=== PATIENT | female | born 1945 | race Caucasian/White ===

== ENCOUNTER 2020-04-06 14:59 | Outpatient (REF) | payer MEDICARE, SELFPAY | END 2020-04-06 15:00 | disposition home or self-care (01) | LOC: HO.LAB 14:59 | PROVIDERS: PCP Internal Medicine; Visit Provider Internal Medicine | DX: Z20.828 Contact with and (suspected) exposure to other viral communicable diseases (principal) | CPT/HCPCS: 87635 ==

== ENCOUNTER 2020-07-23 12:59 | Outpatient (REF) | payer MEDICARE, MEDICAID, SELFPAY ==
--- NOTE | ~2020-07-23 | MM_ITS ---
EXAMINATION: MM SCREENING DIGITAL BREAST TOMOSYNTHESIS, BILATERAL CLINICAL INFORMATION: Screening. Asymptomatic. The lifetime risk of breast cancer based on the Tyrer-Cuzick Model is 2%. COMPARISON: Mammography: 01/16/2018, 01/04/2018, 11/13/2016 TECHNIQUE: Digital breast tomosynthesis is performed in both the craniocaudal and mediolateral oblique views along with computer-aided detection (CAD). Synthesized 2D images are generated from the tomosynthesis. FINDINGS: There are scattered areas of fibroglandular density (ACR BI-RADS breast composition Category b). There are no significant masses, abnormal calcifications, or other abnormalities. Parenchymal pattern is similar to prior exams. No significant changes. MM/MM tomosynthesis screening BI IMPRESSION: No mammographic evidence of malignancy. ASSESSMENT: BI-RADS 1: Negative RECOMMENDATION: Routine annual mammography screening. This patient's information was entered into a reminder system with a target due date for their next mammogram.
== END 2020-07-23 13:00 | disposition home or self-care (01) ==
LOC: HO.MAMMO 12:59
PROVIDERS: Visit Provider Internal Medicine
DX: Z12.31 Encounter for screening mammogram for malignant neoplasm of breast (principal)
CPT/HCPCS: 77063; 77067

== ENCOUNTER 2020-08-06 09:28 | Outpatient (REF) | payer MEDICARE, MEDICAID, SELFPAY ==
[2020-08-06 10:53] LABS: Alanine Aminotransferase 26 U/L (0-31); Albumin Level 4.5 g/dL (3.5-5.0); Alkaline Phosphatase 67 U/L (39-117); Anion Gap 14 (12-20); Aspartate Amino Transferase 21 U/L (5-31); Bilirubin Total 0.6 mg/dL (0.0-1.0); Blood Urea Nitrogen 15 mg/dL (9-16); Carbon Dioxide 29 mmol/L (22-29); Chloride 102 mmol/L (96-108); Cholesterol 126 mg/dL; Estimated Glomerular Filt Rate > 60; Glucose Fasting 130 mg/dL (60-99); HDL Cholesterol 40 mg/dL; LDL Cholesterol Calculated 61 mg/dl; Potassium 4.2 mmol/L (3.3-5.1); Sodium 141 mmol/L (135-145); Total Protein 7.2 g/dL (6.5-8.0); Triglycerides 127 mg/dL
[2020-08-06 11:04] LABS: Creatinine Urine 132.15 mg/dL; Microalbum/Creatinine Ratio Ur 19.6 ug/mg cr
[2020-08-12 14:27] LABS: Vitamin D 25-OH, D2 <4 ng/mL; Vitamin D 25-OH, D3 41 ng/mL; Vitamin D 25-OH, Total 41 ng/mL (30-100)
== END 2020-08-06 09:29 | disposition home or self-care (01) ==
LOC: HO.LAB 09:28
PROVIDERS: PCP Internal Medicine; Visit Provider Internal Medicine
DX: E11.9 Type 2 diabetes mellitus without complications (principal); E78.00 Pure hypercholesterolemia, unspecified; E78.5 Hyperlipidemia, unspecified; E55.9 Vitamin D deficiency, unspecified
CPT/HCPCS: 36415; 80053; 80061; 82043; 82306

== ENCOUNTER → 2020-08-27 10:57 | Outpatient (BNVA) | payer MEDICARE, MEDICAID, SELFPAY | PROVIDERS: PCP Internal Medicine; Visit Provider Nurse Practitioner Gerontology | DX: E11.9 Type 2 diabetes mellitus without complications (principal); E78.00 Pure hypercholesterolemia, unspecified; E55.9 Vitamin D deficiency, unspecified; I10 Essential (primary) hypertension | CPT/HCPCS: 82947; 99212 ==

== ENCOUNTER → 2020-09-13 09:40 | Outpatient (BNVA) | payer MEDICARE, MEDICAID, SELFPAY | PROVIDERS: PCP Internal Medicine; Visit Provider Internal Medicine | DX: I49.8 Other specified cardiac arrhythmias (principal); I44.4 Left anterior fascicular block; I10 Essential (primary) hypertension; E11.9 Type 2 diabetes mellitus without complications; R94.31 Abnormal electrocardiogram [ECG] [EKG]; Z82.49 Family history of ischemic heart disease and other diseases of the circulatory system | CPT/HCPCS: 93005; 99212 ==

== ENCOUNTER → 2020-09-21 09:05 | Outpatient (REF) | payer MEDICARE, MEDICAID, SELFPAY ==
--- NOTE | ~2020-09-21 | NM_ITS ---
Lexiscan Myocardial perfusion study Indication: Atrial arrhythmias, left anterior fascicular block, assess for coronary disease and ischemia Technique: The patient was brought in for a Lexiscan perfusion study on 09/21/2020 and was injected 0.4 mg of Lexiscan intravenously. Within a minute of this injection 25 mCi of sestamibi was given intravenously. Images were obtained using the SPECT gamma camera interlaced with the gating device. Images were obtained in supine position. Resting perfusion study was performed on 09/22/2020. Patient was administered 31 mCi of sestamibi intravenously at rest. Images were then obtained in supine position. Total DLP 70mGy-cm. Images were processed with the software and compared side to side in short axis, horizontal long axis and vertical long axis views. Findings: Raw acquisition was reviewed. The stress perfusion study showed no significant perfusion abnormality. Both uncorrected as well as CT attenuation corrected images were reviewed. The gated study shows normal LV systolic function with calculated LVEF of 72%. LV cavity is normal in size. The gated study shows normal wall thickening and contraction of segments. Resting study shows no significant perfusion abnormality. Gating at rest reveals normal wall motion with ejection fraction at 72%. The findings are consistent with no reversible or fixed perfusion abnormality. NM/NM krishan perf SPECT rest & str Impression: 1. Myocardial perfusion imaging study shows normal myocardial perfusion. No evidence of any ischemia or infarction. 2. Gated LVEF is 72% during stress and rest. 3. Transient ischemic dilatation not present. EKG component of the test reported separately.
--- NOTE | 2020-09-21 09:09 | CA_ITS ---
Acquisition Time: 2020-09-21 09:45:58 Total Exercise Time: 00:02:00 Test Indications: ABN EKG Medications: SEE CHART Protocol: LEXISCAN Max HR: 117 BPM 80% of Pred: 145 BPM Max BP: 138/078 mmHG Max Work Load: 1.0 METS Pharmacological stress test using Lexiscan while sitting. Denies any anginal sx. Sx of H/A reversed with Aminophyline 75 mg IV. EKG without any arrhythmias, same as at baseline. Non-diagnostic for ischemia. Nuclear images to follow. Normotensive response to test. Test reviewed with Dr. Payan Referred By: Burt Payan Overread By: Karis Olson NP
== END ==
LOC: HO.CARD 09:05
PROVIDERS: Visit Provider Internal Medicine
DX: I49.8 Other specified cardiac arrhythmias (principal); R94.31 Abnormal electrocardiogram [ECG] [EKG]; Z82.49 Family history of ischemic heart disease and other diseases of the circulatory system
CPT/HCPCS: 78452; 93017; A9500; J0280; J2785

== ENCOUNTER → 2020-10-20 09:26 | Outpatient (REF) | payer MEDICARE, MEDICAID, SELFPAY ==
--- NOTE | 2020-10-20 09:29 | CA_ITS ---
Transthoracic Echocardiogram Patient (Last, First, Middle): Caroline Becerril M Gender: Female Date of : 1945 Age: 75 Procedure Date: 10/20/2020 Procedure Type: Transthoracic Echocardiogram Location: OP Height: 157.48 cm Weight: 80.29 kg BSA: 1.81 m2 Heart Rate: bpm BP: 124 / 80 mmHg Slip Injector And Applicator: Referring MD: Burt Payan MD Laborer Prestressed Concrete: Lopez Castro MD Symptoms: I49.8 - Other specified cardiac arrhythmias Study Quality: Fair ECG Rhythm: Sinus Conclusions: - 1. Normal LV systolic function with upper limits normal wall thickness with grade 1 diastolic dysfunction 2. Mild aortic regurgitation 3. Normal RV systolic pressure 4. No pericardial effusion Findings Left Ventricle Normal left ventricular size, thickness, and systolic function. The visually estimated ejection fraction is between 60-65%. Regional wall motion abnormalities can not be excluded due to suboptimal endocardial definition. Spectral Doppler is indicative of an impaired relaxation filling pattern. E/E prime ratio is <8, consistent with normal filling pressures. Evidence suggests grade I (mild) diastolic dysfunction. Right Ventricle Normal right ventricular cavity size and systolic function. Atria The left atrium is normal in size. Interatrial shunt cannot be excluded. The right atrium is normal in size. Aortic Valve The aortic valve was not well visualized. There is mild calcification of the aortic valve. There is no aortic valve stenosis. There is mild aortic valve regurgitation. Mitral Valve The mitral valve was not well visualized. There is trace mitral valve regurgitation. There is no mitral valve stenosis. Pulmonic Valve The pulmonic valve was not well visualized. Tricuspid Valve Likely normal tricuspid valve structure and function. There is trace tricuspid valve regurgitation. The right ventricular systolic pressure is normal. The right ventricular systolic pressure is 15 mmHg. There is no evidence of pulmonary hypertension. Great Vessels All visible segments of the aorta are normal in size. The pulmonary artery was not well visualized. Venous The inferior vena cava is normal in size and collapses greater than 50% with inspiration. Pericardium/Pleural There is no evidence of pericardial effusion. Prior Study Comparison Changes noted compared to prior study dated: 04/11/2017. There is no significant LVH on this study Measurements 2D Linear Measurements IVSd: 1.01 0.6-0.9/0.6-1.0 cm LVIDd: 4.59 3.9-5.3/4.2-5.9 cm LVIDd Index: 2.54 2.4-3.2/2.2-3.1 cm/m2 LVIDs: 2.85 2.0-3.6 cm LVPWd: 1.10 0.7-1.1 cm Ao Root: 3.00 2.1-3.5 cm LA Diam: 3.40 2.7-3.8/3.0-4.0 cm LAIDs Index: 1.88 1.5-2.3 cm/m2 LV Mass: 212.22 67-162/88-224 g LV Mass Index: 117.25 43-95/49-115 g/m2 LVOT Diam: 2.10 3.0+(-)1.3 cm Mitral Valve MV Pk E: 0.58 MV PK A: 0.78 MV Decel Time: 176.00 E/A: 0.70 E'Lateral: 6.19 E'Medial: 5.13 E/E' Med: 11.30 E/E' Lat: 9.40 PHT: 52.00 MVA PHT: 4.23 Decel Callahan: 3.31 Aortic Valve AoV Pk Eddie: 1.66 AoV Mn Eddie: 1.09 AoV VTI: 0.37 AoV Pk Grad: 11.00 Aov Mn Grad: 6.00 TRICE Cont.VTI: 1.88 LVOT LVOT Pk Eddie: 0.85 LVOT Mn Eddie: 0.58 LVOT VTI: 0.20 LVOT Pk Grad: 3.00 LVOT Mn Grad: 2.00 LVOT Diam: 2.10 LVOT Area: 3.46 Diastolic Function MV Pk E: 0.58 MV Pk A: 0.78 E/A: 0.70 E'Medial: 5.13 E/E' Med: 11.30 E' Laterial: 6.19 E/E' Lat: 9.40 Tricuspid Valve TR Pk Eddie: 1.75 TR Pk Grad: 12.00 RA Press: 3.00 RVSP: 15.00 Great Vessels Aorta Ao Root-2D: 3.00 2.0-3.7 cm Ao Asc: 3.20 2.1-3.4 cm Pulmonary Valve PV Pk Eddie: 1.47 Peak PV Grad: 9.00 Updated in Other Vendor System with Status of Final Lopez Castro MD electronically signed on 10/20/2020 12:38:17 PM with status of Final
== END ==
LOC: HO.CARD 09:26
PROVIDERS: Visit Provider Internal Medicine
DX: I44.4 Left anterior fascicular block (principal); I49.8 Other specified cardiac arrhythmias
CPT/HCPCS: 93306

== ENCOUNTER → 2020-10-25 12:29 | Outpatient (BNVA) | payer MEDICARE, MEDICAID, SELFPAY | PROVIDERS: PCP Internal Medicine; Referring Provider Internal Medicine; Visit Provider Internal Medicine | DX: I49.8 Other specified cardiac arrhythmias (principal); I44.4 Left anterior fascicular block; I10 Essential (primary) hypertension; E11.9 Type 2 diabetes mellitus without complications; R94.31 Abnormal electrocardiogram [ECG] [EKG]; Z82.49 Family history of ischemic heart disease and other diseases of the circulatory system | CPT/HCPCS: 99212 ==

== ENCOUNTER → 2020-12-03 10:55 | Outpatient (BNVA) | payer MEDICARE, MEDICAID, SELFPAY | PROVIDERS: PCP Internal Medicine; Visit Provider Nurse Practitioner Gerontology | DX: E11.9 Type 2 diabetes mellitus without complications (principal); E78.00 Pure hypercholesterolemia, unspecified; E55.9 Vitamin D deficiency, unspecified; I10 Essential (primary) hypertension | CPT/HCPCS: 82947; 99212 ==

== ENCOUNTER → 2021-06-30 10:13 | Outpatient (BNVA) | payer MEDICARE, MEDICAID, SELFPAY | PROVIDERS: PCP Internal Medicine; Visit Provider Nurse Practitioner Gerontology | DX: E11.9 Type 2 diabetes mellitus without complications (principal); E78.00 Pure hypercholesterolemia, unspecified; E55.9 Vitamin D deficiency, unspecified; I10 Essential (primary) hypertension; Z79.4 Long term (current) use of insulin | CPT/HCPCS: Q3014 ==

== ENCOUNTER 2021-07-22 08:01 | Outpatient (REF) | payer MEDICARE, MEDICAID, SELFPAY ==
[2021-07-22 09:41] LABS: Alanine Aminotransferase 17 U/L (0-31); Albumin Level 4.5 g/dL (3.5-5.0); Alkaline Phosphatase 62 U/L (39-117); Anion Gap 15 (12-20); Aspartate Amino Transferase 19 U/L (5-31); Bilirubin Total 0.4 mg/dL (0.0-1.0); Blood Urea Nitrogen 22 mg/dL (9-16); Carbon Dioxide 32 mmol/L (22-29); Chloride 100 mmol/L (96-108); Cholesterol 129 mg/dL; Estimated Glomerular Filt Rate > 60; Glucose Fasting 125 mg/dL (60-99); HDL Cholesterol 39 mg/dL; LDL Cholesterol Calculated 67 mg/dl; Potassium 5.3 mmol/L (3.3-5.1); Sodium 142 mmol/L (135-145); Total Protein 7.4 g/dL (6.5-8.0); Triglycerides 119 mg/dL
[2021-07-22 10:28] LABS: Creatinine Urine 109.83 mg/dL
[2021-07-27 13:56] LABS: Vitamin D 25-OH, D2 <4 ng/mL; Vitamin D 25-OH, D3 54 ng/mL; Vitamin D 25-OH, Total 54 ng/mL (30-100)
== END 2021-07-22 08:02 | disposition home or self-care (01) ==
LOC: HO.LAB 08:01
PROVIDERS: Absent Provider Internal Medicine; PCP Internal Medicine; Visit Provider Nurse Practitioner Gerontology
DX: E11.9 Type 2 diabetes mellitus without complications (principal); E55.9 Vitamin D deficiency, unspecified
CPT/HCPCS: 36415; 80053; 80061; 82043; 82306

== ENCOUNTER 2021-07-29 09:41 | Outpatient (REF) | payer MEDICARE, MEDICAID, SELFPAY ==
[2021-07-29 11:11] LABS: Anion Gap 13 (12-20); Blood Urea Nitrogen 18 mg/dL (9-16); Calcium 9.9 mg/dL (8.4-10.2); Carbon Dioxide 32 mmol/L (22-29); Chloride 100 mmol/L (96-108); Estimated Glomerular Filt Rate > 60; Glucose Random 96 mg/dL (60-115); Potassium 4.2 mmol/L (3.3-5.1); Sodium 141 mmol/L (135-145)
== END 2021-07-29 09:42 | disposition home or self-care (01) ==
LOC: HO.LAB 09:41
PROVIDERS: PCP Internal Medicine; Visit Provider Nurse Practitioner Gerontology
DX: E11.9 Type 2 diabetes mellitus without complications (principal)
CPT/HCPCS: 36415; 80048

== ENCOUNTER 2021-08-04 08:42 | Outpatient (REF) | payer MEDICARE, MEDICAID, SELFPAY ==
--- NOTE | ~2021-08-04 | MM_ITS ---
EXAMINATION: MM SCREENING DIGITAL BREAST TOMOSYNTHESIS, BILATERAL CLINICAL INFORMATION: Screening. Asymptomatic. The lifetime risk of breast cancer based on the Tyrer-Cuzick Model is 1.6%. COMPARISON: Mammography: July 23, 2020 and studies dating back to November 13, 2016 TECHNIQUE: Digital breast tomosynthesis is performed in both the craniocaudal and mediolateral oblique views along with computer-aided detection (CAD). Synthesized 2D images are generated from the tomosynthesis. FINDINGS: There are scattered areas of fibroglandular density (ACR BI-RADS breast composition Category b). There are no significant masses, abnormal calcifications, or other abnormalities. MM/MM tomosynthesis screening BI IMPRESSION: There are no significant changes from prior study. ASSESSMENT: BI-RADS 1: Negative RECOMMENDATION: Routine annual mammography screening. This patient's information was entered into a reminder system with a target due date for their next mammogram.
== END 2021-08-04 08:43 | disposition home or self-care (01) ==
LOC: HO.MAMMO 08:42
PROVIDERS: PCP Internal Medicine; Visit Provider Internal Medicine
DX: Z12.31 Encounter for screening mammogram for malignant neoplasm of breast (principal)
CPT/HCPCS: 77063; 77067

== ENCOUNTER → 2021-09-29 10:36 | Outpatient (BNVA) | payer MEDICARE, MEDICAID, SELFPAY | PROVIDERS: PCP Internal Medicine; Visit Provider Nurse Practitioner Gerontology | DX: E11.9 Type 2 diabetes mellitus without complications (principal); E78.00 Pure hypercholesterolemia, unspecified; Z79.84 Long term (current) use of oral hypoglycemic drugs; E55.9 Vitamin D deficiency, unspecified; I10 Essential (primary) hypertension | CPT/HCPCS: 82947; 83036; 99212 ==

== ENCOUNTER 2021-11-08 10:01 | Outpatient (REF) | payer MEDICARE, MEDICAID, SELFPAY ==
[2021-11-08 10:33] LABS: MANUAL DIFF FLAG NO
[2021-11-08 11:08] LABS: Basophils Absolute Auto 0.1 X10*3/uL (0.0-0.2); Basophils Percent Auto 1.2 % (0-2); Eosinophils Absolute Auto 0.2 X10*3/uL (0.0-0.4); Eosinophils Percent Auto 2.9 % (0-4); Hematocrit 39.1 % (37.0-47.0); Hemoglobin 12.1 g/dl (12.0-16.0); Imm Gran Abs Auto 0.06 X10*3/uL (0.00-0.03); Imm Gran Pct Auto 0.7 % (0.0-0.4); Lymphocytes Percent Auto 35.5 % (20-40); Mean Corpuscular HGB Conc 30.9 g/dl (31.0-35.0); Mean Corpuscular Hemoglobin 22.8 pg (27.0-33.0); Mean Corpuscular Volume 73.6 fL (80.0-98.0); Mean Platelet Volume 11.9 fL (9.4-12.3); Monocytes Absolute Auto 0.7 X10*3/uL (0.1-1.2); Monocytes Percent Auto 7.8 % (2-11); Neutrophils Absolute Auto 4.3 x10*3/uL (2.0-8.3); Neutrophils Percent Auto 51.9 % (45-73); Platelet Count 326 X10*3/uL (160-400); Red Blood Count 5.31 X10*6/uL (4.20-5.50); Red Cell Distribution Width 15.2 % (11.0-16.0); White Blood Count 8.3 X10*3/uL (4.8-10.8)
[2021-11-08 11:29] LABS: Appearance Urine HAZY; Color Urine YELLOW; Glucose Urine UA NEG (NEG); Leukocyte Esterase Urine 1+ (NEG); Nitrite Urine NEG (NEG); PH 5.5 (5.0-8.0); Specific Gravity - Urine >= 1.030 (1.005-1.025); Urine Blood 2+ (NEG); Urine Ketones NEG (NEG); Urine Protein NEG (NEG-TRACE)
[2021-11-08 11:36] LABS: Anion Gap 16 (12-20); Blood Urea Nitrogen 24 mg/dL (9-16); Calcium 10.7 mg/dL (8.4-10.2); Carbon Dioxide 29 mmol/L (22-29); Chloride 102 mmol/L (96-108); Estimated Glomerular Filt Rate > 60; Potassium 4.5 mmol/L (3.3-5.1); Sodium 142 mmol/L (135-145)
[2021-11-08 11:47] LABS: Thyroid Stimulating Hormone 1.23 uIU/mL (0.32-4.0)
[2021-11-08 12:10] LABS: Calcium Oxalate Crystals Urine 2+ /LPF
[2021-11-08 12:12] LABS: Creatinine Urine 116.91 mg/dL; Microalbum/Creatinine Ratio Ur 16.2 ug/mg cr; Protein/Creatinine Ratio, Ur 0.07 (<0.2); Total Protein Urine Random 8 mg/dL (<12)
[2021-11-08 12:44] LABS: Folate 7.8 ng/mL (> or = 4.0); Vitamin B12 278 pg/mL (200-900)
== END 2021-11-08 10:02 | disposition home or self-care (01) ==
LOC: HO.LAB 10:01
PROVIDERS: Absent Provider Internal Medicine; PCP Internal Medicine; Visit Provider Internal Medicine Nephrology
DX: R53.82 Chronic fatigue, unspecified (principal); I49.8 Other specified cardiac arrhythmias; I10 Essential (primary) hypertension; E11.9 Type 2 diabetes mellitus without complications; Z87.442 Personal history of urinary calculi
CPT/HCPCS: 36415; 80051; 81001; 82043; 82310; 82565; 82607; 82746; 84156; 84443; 84520; 85025

== ENCOUNTER → 2021-11-09 10:39 | Outpatient (BNVA) | payer MEDICARE, MEDICAID, SELFPAY | PROVIDERS: PCP Internal Medicine; Referring Provider Internal Medicine; Visit Provider Internal Medicine | DX: I49.8 Other specified cardiac arrhythmias (principal); I44.4 Left anterior fascicular block; I10 Essential (primary) hypertension; E11.9 Type 2 diabetes mellitus without complications; Z82.49 Family history of ischemic heart disease and other diseases of the circulatory system | CPT/HCPCS: 93005; 99212 ==

== ENCOUNTER → 2021-12-26 09:50 | Outpatient (REF) | payer MEDICARE, MEDICAID, SELFPAY ==
--- NOTE | 2021-12-26 | HM_ITS ---
* Total monitoring time 2 hours and 36 minutes. * Underlying rhythm is sinus. Average rate 82/Min. Range 69 to 95/Min. * No atrial fibrillation or flutter or AV blocks or pauses. * Very rare supraventricular ectopy with minimal burden. One short burst of 10 beats. * Palpitations reported by patient possibly related to supraventricular ectopy but the exact times could do not correlate. MTDD
--- NOTE | 2021-12-26 09:57 | CA_ITS ---
Transthoracic Echocardiogram Patient (Last, First, Middle): Caroline Becerril M Gender: Female Date of : 1945 Age: 76 Procedure Date: 12/26/2021 Procedure Type: Transthoracic Echocardiogram Location: OP Height: 162.56 cm Weight: 66.68 kg BSA: 1.72 m2 Heart Rate: 68 bpm BP: 128 / 62 mmHg Record Keeper: KIMBER Referring MD: Burt Payan MD Warper Creeler: Lopez Castro MD Symptoms: I49.8 - Other specified cardiac arrhythmias Study Quality: Adequate ECG Rhythm: Sinus Conclusions: - 1. Normal LV systolic function with impaired relaxation filling pattern next 2. Mild aortic regurgitation 3. No gross pericardial effusion Findings Left Ventricle Normal left ventricular size, thickness, and systolic function. The visually estimated ejection fraction is between 55-60%. Spectral Doppler is indicative of an impaired relaxation filling pattern. E/E prime ratio is between 8 and 15 consistent with indeterminate filling pressures. Right Ventricle Normal right ventricular cavity size and systolic function. Atria Both atria are normal in size. There is no evidence of interatrial shunt. Aortic Valve The aortic valve was not well visualized. There is mild aortic valve regurgitation. Mitral Valve Normal mitral valve structure and function. There is trace mitral valve regurgitation. There is no mitral valve stenosis. Pulmonic Valve The pulmonic valve was not well visualized. Tricuspid Valve Likely normal tricuspid valve structure and function. Tricuspid regurgitation envelope is inadequate for calculation of right ventricular systolic pressure. Normal right atrial pressure. Great Vessels All visible segments of the aorta are normal in size. The pulmonary artery was not well visualized. Venous The inferior vena cava is normal in size and collapses greater than 50% with inspiration. Pericardium/Pleural There is no evidence of pericardial effusion. Prior Study Comparison No significant change compared to prior study dated: 10/20/2020. Measurements 2D Linear Measurements IVSd: 1.19 0.6-0.9/0.6-1.0 cm LVIDd: 4.83 3.9-5.3/4.2-5.9 cm LVIDd Index: 2.81 2.4-3.2/2.2-3.1 cm/m2 LVIDs: 2.94 2.0-3.6 cm LVPWd: 1.06 0.7-1.1 cm LA Diam: 3.20 2.7-3.8/3.0-4.0 cm LAIDs Index: 1.86 1.5-2.3 cm/m2 LV Mass: 251.90 67-162/88-224 g LV Mass Index: 146.46 43-95/49-115 g/m2 LVOT Diam: 1.90 3.0+(-)1.3 cm 2D Systolic Function EF 4C: 53.00 >55% EF 2C: 68.20 >55% EF BiP: 59.30 >55% Mitral Valve MV Pk E: 0.48 MV PK A: 0.65 MV Decel Time: 213.00 E/A: 0.70 E'Lateral: 6.53 E'Medial: 3.92 E/E' Med: 12.20 E/E' Lat: 7.40 PHT: 63.00 MVA PHT: 3.49 Decel [place]: 2.25 Aortic Valve AoV Pk Eddie: 1.47 AoV Mn Eddie: 1.11 AoV VTI: 0.32 AoV Pk Grad: 9.00 Aov Mn Grad: 5.00 TRICE Cont.VTI: 1.71 LVOT LVOT Pk Eddie: 0.86 LVOT Mn Eddie: 0.66 LVOT VTI: 0.19 LVOT Pk Grad: 3.00 LVOT Mn Grad: 2.00 LVOT Diam: 1.90 LVOT Area: 2.84 Diastolic Function MV Pk E: 0.48 MV Pk A: 0.65 E/A: 0.70 E'Medial: 3.92 E/E' Med: 12.20 E' Laterial: 6.53 E/E' Lat: 7.40 Right Ventricle TAPSE (mm): 19.90 TVS' Eddie: 8.27 Tricuspid Valve RA Press: 3.00 Great Vessels Aorta Sinus of Valsalva: 2.90 2.0-3.5 cm Ao Asc: 3.50 2.1-3.4 cm Pulmonary Valve PV Pk Eddie: 0.72 Peak PV Grad: 2.00 Updated in Other Vendor System with Status of Final Lopez Castro MD electronically signed on 12/26/2021 11:49:24 AM with status of Final
== END ==
LOC: HO.CARD 09:50
PROVIDERS: PCP Internal Medicine; Visit Provider Internal Medicine
DX: I49.8 Other specified cardiac arrhythmias (principal); R00.2 Palpitations
CPT/HCPCS: 93246; 93306

== ENCOUNTER 2022-03-13 10:01 | Outpatient (REF) | payer MEDICARE, MEDICAID, SELFPAY ==
[2022-03-13 11:17] LABS: Alanine Aminotransferase 23 U/L (0-31); Albumin Level 4.3 g/dL (3.5-5.0); Alkaline Phosphatase 57 U/L (39-117); Anion Gap 18 (12-20); Aspartate Amino Transferase 21 U/L (5-31); Bilirubin Total 0.5 mg/dL (0.0-1.0); Blood Urea Nitrogen 18 mg/dL (9-16); Calcium 9.6 mg/dL (8.4-10.2); Carbon Dioxide 24 mmol/L (22-29); Chloride 106 mmol/L (96-108); Cholesterol 125 mg/dL; Estimated Glomerular Filt Rate > 60; Glucose Fasting 97 mg/dL (60-99); HDL Cholesterol 45 mg/dL; LDL Cholesterol Calculated 64 mg/dl; Sodium 143 mmol/L (135-145); Total Protein 6.8 g/dL (6.5-8.0); Triglycerides 80 mg/dL
[2022-03-13 12:41] LABS: Microalbum/Creatinine Ratio Ur 34.2 ug/mg cr
[2022-03-15 12:37] LABS: Calcium (PTHI) 9.7 mg/dL (8.6-10.4); PTHI 58 pg/mL (16-77)
[2022-03-16 16:02] LABS: Calcium, Ionized 4.9 mg/dL (4.8-5.6)
== END 2022-03-13 10:02 | disposition home or self-care (01) ==
LOC: HO.LAB 10:01
PROVIDERS: PCP Internal Medicine; Visit Provider Internal Medicine
DX: E78.5 Hyperlipidemia, unspecified (principal); E11.9 Type 2 diabetes mellitus without complications; E55.9 Vitamin D deficiency, unspecified; E83.52 Hypercalcemia
CPT/HCPCS: 36415; 80053; 80061; 82043; 82306; 82330; 83970

== ENCOUNTER → 2022-03-16 11:00 | Outpatient (BNVA) | payer MEDICARE, MEDICAID, SELFPAY | PROVIDERS: PCP Internal Medicine; Referring Provider Internal Medicine; Visit Provider Internal Medicine | DX: I49.8 Other specified cardiac arrhythmias (principal); I44.4 Left anterior fascicular block; I10 Essential (primary) hypertension; E11.9 Type 2 diabetes mellitus without complications; Z82.49 Family history of ischemic heart disease and other diseases of the circulatory system | CPT/HCPCS: 99212 ==

== ENCOUNTER → 2022-05-26 10:46 | Outpatient (BNVA) | payer MEDICARE, MEDICAID, SELFPAY | PROVIDERS: PCP Internal Medicine; Visit Provider Urology | DX: N20.0 Calculus of kidney (principal) | CPT/HCPCS: 99212 ==

== ENCOUNTER 2022-08-07 08:57 | Outpatient (REF) | payer MEDICARE, MEDICAID, SELFPAY ==
--- NOTE | ~2022-08-07 | MM_ITS ---
EXAMINATION: MM SCREENING DIGITAL BREAST TOMOSYNTHESIS, BILATERAL CLINICAL INFORMATION: Screening. Asymptomatic. The lifetime risk of breast cancer based on the Tyrer-Cuzick Model is 1.9%. COMPARISON: Mammography: August 04, 2021 and studies dating back to November 13, 2016 TECHNIQUE: Digital breast tomosynthesis is performed in both the craniocaudal and mediolateral oblique views along with computer-aided detection (CAD). Synthesized 2D images are generated from the tomosynthesis. FINDINGS: There are scattered areas of fibroglandular density (ACR BI-RADS breast composition Category b). There are no significant masses, abnormal calcifications, or other abnormalities. MM/MM tomosynthesis screening BI IMPRESSION: No significant changes from prior exam. ASSESSMENT: BI-RADS 1: Negative RECOMMENDATION: Routine annual mammography screening. This patient's information was entered into a reminder system with a target due date for their next mammogram.
== END 2022-08-07 08:58 | disposition home or self-care (01) ==
LOC: HO.MAMMO 08:57
PROVIDERS: PCP Internal Medicine; Visit Provider Internal Medicine
DX: Z12.31 Encounter for screening mammogram for malignant neoplasm of breast (principal)
CPT/HCPCS: 77063; 77067

== ENCOUNTER 2023-03-09 06:56 | Outpatient (REF) | payer MEDICARE, MEDICAID, SELFPAY ==
[2023-03-09 08:50] LABS: Alanine Aminotransferase 21 U/L (0-31); Albumin Level 4.3 g/dL (3.5-5.0); Alkaline Phosphatase 75 U/L (39-117); Anion Gap 16 (12-20); Aspartate Amino Transferase 18 U/L (5-31); Bilirubin Total 0.5 mg/dL (0.0-1.0); Blood Urea Nitrogen 16 mg/dL (9-16); Calcium 9.8 mg/dL (8.4-10.2); Carbon Dioxide 27 mmol/L (22-29); Chloride 106 mmol/L (96-108); Cholesterol 126 mg/dL (<200); Estimated Glomerular Filt Rate > 60; Glucose Fasting 137 mg/dL (60-99); HDL Cholesterol 42 mg/dL (>40); LDL Cholesterol Calculated 59 mg/dL (<100); Potassium 4.7 mmol/L (3.3-5.1); Sodium 144 mmol/L (135-145); Total Protein 7.2 g/dL (6.5-8.0); Triglycerides 128 mg/dL (<150)
[2023-03-09 09:05] LABS: Vitamin D 25-OH Total 37.6 ng/mL (>30)
[2023-03-09 10:43] LABS: Creatinine Urine 146.58 mg/dL; Microalbum/Creatinine Ratio Ur 14.3 ug/mg cr (<30)
== END 2023-03-09 06:57 | disposition home or self-care (01) ==
LOC: HO.LAB 06:56
PROVIDERS: PCP Internal Medicine; Visit Provider Internal Medicine
DX: I10 Essential (primary) hypertension (principal); E11.9 Type 2 diabetes mellitus without complications; E55.9 Vitamin D deficiency, unspecified; E78.5 Hyperlipidemia, unspecified
CPT/HCPCS: 36415; 80053; 80061; 82043; 82306; 82570

== ENCOUNTER 2023-03-21 10:27 | Outpatient (AMB) | payer MEDICARE, MEDICAID, SELFPAY ==
--- NOTE | 2023-03-21 10:30 | MHC.PC.OV ---
Vital Signs 03/21/23 10:31 03/21/23 12:34 Height 5 ft 2 in Weight 158 lb BMI 28.9 BP 188/90 H 170/90 H Blood Pressure Location Lt brachial Lt brachial Position Sitting Sitting Pulse 70 Pulse Source Pulse Oximeter Pulse Oximetry (%) 98 Oxygen Delivery Method Room Air Intake Visit Reasons: dm Intake Note: Patient here for a follow up DM Picker Packer Required: No Accompanied by: Self / Same As Patient Allergies No Known Allergies [No Known Allergies*] Allergy (Verified 03/21/23 10:41) Medication List - Last Reconciled 03/21/23 by Anne Marie Fermin MD aspirin 81 mg PO DAILY atorvastatin 40 mg PO DAILY 90 days blood sugar diagnostic (FreeStyle Lite Strips) As directed three times a day blood-glucose meter (FreeStyle Lite Meter kit) As directed to test blood sugar three times a day chlorhexidine gluconate 0.12% 15 mL buccal DAILY cholecalciferol (vitamin D3) 25 mcg PO DAILY dulaglutide (Trulicity) 1.5 mg (0.5 mL) subcut QWEEK hydrochlorothiazide 12.5 mg PO DAILY lancets As directed to test blood sugar three times a day lansoprazole 30 mg PO DAILY 90 days lisinopril 5 mg PO DAILY 90 days meclizine 25 mg PO BID 30 days metformin 1,000 mg PO BID 90 days metoprolol tartrate 50 mg PO BID 90 days Tobacco use date assessed: 07/18/22 Fall risk assessment: No Falls in past year Last assessed Fall Risk: 03/21/23 Dental Screening Dental Screen Date: 03/21/23 Did you have a dental visit in the last 12 months?: Yes Did you have a dental problem in the last 6 months where you did not have access to dental care?: No Was dental information given to patient?: Patient has dentist HPI HPI Comments History of Present Illness Details This is a 77-year-old female with diabetes mellitus type 2, hypertension and pure hypercholesterolemia that comes today complaining of multiple allergies and would like to be refer to allergies. She has frequent sneezing and dry cough. A1c within goal. Blood pressure elevated and I will discontinue hydrochlorothiazide and increase lisinopril from 5 mg to 20 mg. Blood pressure will be recheck in 3 weeks by nurse navigator. Cholesterol stable. [facility] Medical History (Updated 03/21/23 @ 10:50 by Anne Marie Fermin MD) Chronic fatigue Renal cyst DM2 (diabetes mellitus, type 2) Atrial arrhythmia Renal stones Iron deficiency anemia Essential hypertension Hypovitaminosis D Pure hypercholesterolemia Controlled diabetes mellitus without complication, without long-term current use of insulin Surgical History History of bilateral cataract extraction History of extraction of renal calculus History of total abdominal hysterectomy and bilateral salpingo-oophorectomy Family History Father No problems noted. Mother Diabetes Hypertension Social History Household Members: None Housing: Apartment Alcohol intake: never Patient Tobacco Use Status: Never used Tobacco e-Cigarette/Vaping Use: Never Used Second Hand Smoke Exposure: No service: No Current occupational status: disabled Cognitive needs: No Hearing needs: No Vision needs: Yes Questionnaire Thrive Questionnaire Date Thrive assessed: 07/18/22 NICHOLE-7 AMB Questionnaire NICHOLE-7 Date NICHOLE - 7 assessed: 07/18/22 Source: Developed by Drs. Pardeep Saul, Rae Walker, Rex Schuster and colleagues, with an educational mallory from [employer]. Review of Systems Const All systems reviewed & are unremarkable except as noted in HPI and below Eyes Reports no additional complaints, Denies change in vision and Denies other visual disturbances Card Denies chest pain at rest, Denies chest pain with activity, Denies edema, Denies irregular heart rhythm, Denies claudication, Denies dyspnea, Denies dyspnea on exertion, Denies orthopnea, Denies paroxysmal nocturnal dyspnea and Denies slow heart rate Resp Denies cough, Denies dyspnea and Denies dyspnea on exertion GI Denies abdominal pain, Denies change in bowel habits, Denies excessive flatus, Denies nausea and Denies vomiting Denies urinary incontinence, Denies urinary hesitancy and Denies urinary urgency Physical exam (Primary Care) Vital Signs: Last Vital Signs Pulse 70 03/21/23 10:31 BP 188/90 H 03/21/23 10:31 Pulse Ox 98 03/21/23 10:31 Oxygen Delivery Method Room Air 03/21/23 10:31 BMI result Body Mass Index 28.9 Tobacco/Smoking Status: Tobacco use Status Tobacco use date assessed 07/18/22 03/21/23 10:37 Patient Tobacco Use Status Never used Tobacco 03/21/23 10:37 e-Cigarette/Vaping Use Never Used 03/21/23 10:37 Thrive Assessment: Date of Thrive Assessment Date Thrive assessed 07/18/22 03/21/23 10:37 Eyes General: appearance normal, both eyes and all related structures Eyelids: Yes eyelids normal Conjunctivae: conjunctivae normal Neck Neck: Yes normal visual inspection and Yes supple Resp Effort & Inspection: normal respiratory effort Auscultation: clear to auscultation bilaterally Cardio Jugular venous distension: no JVD Rate: regular rate Rhythm: regular rhythm Heart sounds: S1 normal heart sound present and S2 normal heart sound present Extrem General: Yes full ROM Office Procedures Flu Questionnaire Does the patient have a severe egg allergy?: No Has the patient ever had any past reaction to a flu shot?: Yes Results AMB Hemoglobin A1c AMB Hemoglobin A1c 6.8 % Last Edit by RHONDA Lucio on 03/21/23 10:42 Immunizations flu vacc [id number] 6mos up(PF) 60 mcg(15 mcgx4)/0.5 mL IM syringe Performing Provider: Anne Marie Fermin MD [facility] Documented (not given) by: RHONDA Lucio on 03/21/23 10:37 Reason Not Given: Patient Refused Results Reviewed Results Reviewed: Laboratory Last Values Hgb A1c (Clinic) 6.8 % (4.0-6.0) H 03/21/23 10:30 Assessment and Plan Assessment & Plan (1) DM2 (diabetes mellitus, type 2): Code(s): E11.9 - Type 2 diabetes mellitus without complications Qualifiers: Diabetes mellitus long-term insulin use: without terminal block assembler use Diabetes mellitus complication status: without complication Qualified Code(s): E11.9 - Type 2 diabetes mellitus without complications Plan: Continue Trulicity and metformin. A1c goal is equal or less than 7%. (2) Multiple allergies: Code(s): Z88.9 - Allergy status to unspecified drugs, medicaments and biological substances Plan: Referred to Allergy and immunology. (3) Essential hypertension: Code(s): I10 - Essential (primary) hypertension Plan: Discontinue hydrochlorothiazide. Increase lisinopril from 5 mg to 20 mg. Blood pressure goal is equal or less than 130/80. Recheck blood pressure with nurse navigator in 3 weeks. (4) Pure hypercholesterolemia: Code(s): E78.00 - Pure hypercholesterolemia, unspecified Plan: Continue statins. Orders: Orders Influenza [id number] Immunization Today Z23 - Encounter for immunization AMB Hemoglobin A1c Today E11.9 - Type 2 diabetes mellitus without complications Referrals Allergy & Immunology Referral Z88.9 - Allergy status to unspecified drugs, medicaments and biological substances Medications: New lisinopril 20 mg PO DAILY 90 days 90 tabs 1RF I10 - Essential (primary) hypertension Discontinued lisinopril Discontinued Reason: Patient Completed Course 5 mg PO DAILY 90 days 90 tabs 1RF I10 - Essential (primary) hypertension Coding Level of Care Code Est Pt Level 4 (77099) Diagnoses Type 2 diabetes mellitus without complication, without long-term current use of insulin E11.9 Diabetes mellitus long-term insulin use: without terminal block assembler use Diabetes mellitus complication status: without complication Multiple allergies Z88.9 Essential hypertension I10 Pure hypercholesterolemia E78.00 Time Spent (min) 22
[2023-03-21 10:31] VITALS: BP 188/90; PULSE 70; O2SAT 98; BMI 28.9
[2023-03-21 12:34] VITALS: BP 170/90
== END 2023-03-21 10:51 | disposition home or self-care (01) ==
PROVIDERS: PCP Internal Medicine; Visit Provider Internal Medicine
DX: E11.9 Type 2 diabetes mellitus without complications (principal); Z88.9 Allergy status to unspecified drugs, medicaments and biological substances; I10 Essential (primary) hypertension; E78.00 Pure hypercholesterolemia, unspecified; Z23 Encounter for immunization
CPT/HCPCS: 83036; 99214

== ENCOUNTER 2023-05-16 09:48 | Outpatient (REF) | payer MEDICARE, MEDICAID, SELFPAY ==
--- NOTE | ~2023-05-16 | US_ITS ---
EXAMINATION: US RETROPERITONEAL LIMITED (RENAL ONLY) CLINICAL INFORMATION: Calculus of kidney. COMPARISON: Renal ultrasound 03/01/2020 and 04/09/2019. TECHNIQUE: Real-time imaging of the kidneys. FINDINGS: RIGHT KIDNEY: 9.1 x 3.2 x 4.0 cm (SAG x AP x TRV). The kidney is normal in size, contour, and echogenicity. Renal cortical thickness is normal. No focal parenchymal lesions or hydronephrosis. There are at least 4 calculi seen in the mid and lower pole measuring up to 5 mm in size. LEFT KIDNEY: 11.9 x 5.2 x 6.5 cm (SAG x AP x TRV). The kidney is normal in size, contour, and echogenicity. Renal cortical thickness is normal. No hydronephrosis. 1.8 cm simple cyst in the upper pole. 1.2 cm simple cyst in the mid kidney. No follow-up imaging recommended. At least 2 calculi are seen in the mid and lower pole measuring up to 3 mm size. US/US renal BI IMPRESSION: Nonobstructing bilateral renal calculi without significant change from prior. No hydronephrosis.
== END 2023-05-16 09:49 | disposition home or self-care (01) ==
LOC: HO.US 09:48
PROVIDERS: PCP Internal Medicine; Visit Provider Urology
DX: N20.0 Calculus of kidney (principal)
CPT/HCPCS: 76775

== ENCOUNTER 2023-06-01 13:11 | Outpatient (AMB) | payer MEDICARE, MEDICAID, SELFPAY ==
--- NOTE | 2023-06-01 13:14 | MHC.OFFVIS ---
Intake Intake Visit Reasons: 6m follow up/US(set) Intake Note: Patient is Present for Telephone Follow Up Urology Med: None Antibiotic Allergy: None Blood Thinner: Aspirin Allergies No Known Allergies [No Known Allergies*] Allergy (Verified 03/21/23 10:41) HPI HPI Comments History of Present Illness Details Caroline is a pleasant [place]ian-speaking female. She is a patient Dr. Fermin. She is seen for the following urologic conditions - nephrolithiasis Telemedicine Evaluation 15 min Consultation [employer] Video attempted [place]ian translation provided by qualified medical operations supervisor Imaging shows slight progression of stones Six month follow-up Nephrolithiasis Longstanding Multiple prior procedures Concurrent diabetes Imaging - 03/30 renal ultrasound with 2 cm right renal stone, multiple small left renal stones, multiple bilateral cysts - 05/03 renal ultrasound bilateral 5 mm stones Therapeutic plan - continue lemon water - surveillance imaging [facility] Medical History Atrial arrhythmia Chronic fatigue Controlled diabetes mellitus without complication, without long-term current use of insulin DM2 (diabetes mellitus, type 2) Essential hypertension Hypovitaminosis D Iron deficiency anemia Pure hypercholesterolemia Renal cyst Renal stones Surgical History History of bilateral cataract extraction History of extraction of renal calculus History of total abdominal hysterectomy and bilateral salpingo-oophorectomy Family History Father No problems noted. Mother Diabetes Hypertension Social History Household Members: None Housing: Apartment Alcohol intake: never Patient Tobacco Use Status: Never used Tobacco e-Cigarette/Vaping Use: Never Used Second Hand Smoke Exposure: No service: No Current occupational status: disabled Cognitive needs: No Hearing needs: No Vision needs: Yes Review of Systems Const All systems reviewed & are unremarkable except as noted in HPI and below Reports no additional complaints Resp Reports no additional complaints GI Reports no additional complaints Reports as per HPI Musc Reports no additional complaints Physical Exam Telemedicine evaluation Appropriate responses Regular breathing rate and rhythm HEENT Head: Yes normal to inspection Ears: hearing grossly normal bilaterally Eyes General: appearance normal, both eyes and all related structures Neck Neck: Yes normal visual inspection Chest Chest palpation & inspection: normal inspection of the chest Resp Effort & Inspection: normal respiratory effort and able to speak in complete sentences Assessment & Plan Assessment & Plan (1) Bilateral nephrolithiasis: Code(s): N20.0 - Calculus of kidney Plan Six month follow-up Orders: Orders US renal BI 6 Months N20.0 - Calculus of kidney Medications: New potassium citrate ER 10 mEq PO BID 180 tabs 1RF 90 days N20.0 - Calculus of kidney Patient Instructions: Imaging studies, laboratory and physical exam results were discussed and reviewed in detail. No major barriers to patient understanding were identified. An opportunity to ask questions regarding the treatment plan was provided. All questions were answered. The patient expressed understanding and agreement with the above treatment plan. The patient is aware they should contact our office by phone for worsening of their current condition or the appearance of new urologic symptoms. Compliance is encouraged with any medications and followup testing that is ordered. It is a privilege to participate in the urologic care of your patient. If you have any questions or concerns regarding treatment for the above conditions, or other urologic issues, please do not hesitate to contact me. The office telephone contact is [phone]. This note is constructed using voice recognition software. While every effort has been made to ensure accuracy photogrammetry airplane pilot errors may have been included. Yours sincerely, Dr Louis Serrano MD, [facility] - Urology Providers of Expert, Compassionate Care for the Genitourinary System Telehealth Telehealth Location of provider rendering services: practice address Location of patient: address on file Patient Identification confirmed using: Name, : Yes Telehealth method: voice only Patient verbally consented to treatment: Yes Patient verbally consented to billing insurance company: Yes Patient informed of any privacy concerns related to visit: Yes Coding Level of Care Code Tele Est Pt Level 4 (86231) Diagnoses Bilateral nephrolithiasis N20.0
== END 2023-06-01 14:08 | disposition home or self-care (01) ==
LOC: HO.HUSH 13:11
PROVIDERS: PCP Internal Medicine; Visit Provider Urology
DX: N20.0 Calculus of kidney (principal)
CPT/HCPCS: 99442

== ENCOUNTER → 2023-06-01 13:11 | Outpatient (BNVA) | payer MEDICARE, MEDICAID, SELFPAY | PROVIDERS: PCP Internal Medicine; Visit Provider Urology ==

== ENCOUNTER 2023-08-13 08:43 | Outpatient (REF) | payer MEDICARE, MEDICAID, SELFPAY | END 2023-08-13 08:44 | disposition home or self-care (01) | LOC: HO.MAMMO 08:43 | PROVIDERS: PCP Internal Medicine; Visit Provider Internal Medicine | DX: Z12.31 Encounter for screening mammogram for malignant neoplasm of breast (principal) | CPT/HCPCS: 77063; 77067 ==

== ENCOUNTER → 2023-08-13 09:15 | Outpatient (BNV) | payer MEDICARE, MEDICAID, SELFPAY | PROVIDERS: PCP Internal Medicine; Visit Provider Radiology Diagnostic Radiology | DX: Z12.31 Encounter for screening mammogram for malignant neoplasm of breast (principal) | CPT/HCPCS: 77063; 77067 ==

== ENCOUNTER 2023-08-30 13:26 | Outpatient (AMB) | payer MEDICARE, MEDICAID, SELFPAY ==
[2023-08-30 13:37] VITALS: BP 146/70; PULSE 70; BMI 29.3
--- NOTE | 2023-08-30 13:37 | MHC.OFFVIS ---
Intake Vital Signs 08/30/23 13:37 Height 5 ft 2 in Weight 160 lb 0.889 oz BMI 29.3 BP 146/70 H Blood Pressure Location Lt brachial Position Sitting Pulse 70 Intake Visit Reasons: r/s 1 year followup Intake Note: 1 year follow up [employer] Kil[employer] Placer Required: No Accompanied by: Self / Same As Patient Allergies No Known Allergies [No Known Allergies*] Allergy (Verified 08/30/23 13:38) Medication List - Last Reconciled 08/30/23 by Burt Payan MD aspirin 81 mg PO DAILY atorvastatin 40 mg PO DAILY 90 days benzonatate 100 mg PO BID PRN 5 days blood sugar diagnostic (FreeStyle Lite Strips) As directed three times a day blood-glucose meter (FreeStyle Lite Meter kit) As directed to test blood sugar three times a day chlorhexidine gluconate 0.12% 15 mL buccal DAILY dulaglutide (Trulicity) 1.5 mg (0.5 mL) subcut QWEEK lancets As directed to test blood sugar three times a day lansoprazole 30 mg PO DAILY 90 days lisinopril 20 mg PO DAILY 90 days meclizine 25 mg PO BID 30 days metformin 1,000 mg PO BID 90 days metoprolol tartrate 50 mg PO BID 90 days potassium citrate ER 10 mEq PO BID 90 days HPI HPI Comments History of Present Illness Details Caroline returns for follow-up. In the past, she has had palpitations suspected to be from atrial arrhythmias. Overall, she feels fine. Rare, very brief palpitations, lasting just seconds. Otherwise, no specific cardiac complaints. [facility] Medical History Atrial arrhythmia Chronic fatigue Controlled diabetes mellitus without complication, without long-term current use of insulin DM2 (diabetes mellitus, type 2) Essential hypertension Hypovitaminosis D Iron deficiency anemia Pure hypercholesterolemia Renal cyst Renal stones Surgical History History of bilateral cataract extraction History of extraction of renal calculus History of total abdominal hysterectomy and bilateral salpingo-oophorectomy Family History Father No problems noted. Mother Diabetes Hypertension Social History Household Members: None Housing: Apartment Alcohol intake: never Patient Tobacco Use Status: Never used Tobacco e-Cigarette/Vaping Use: Never Used Second Hand Smoke Exposure: No service: No Current occupational status: disabled Cognitive needs: No Hearing needs: No Vision needs: Yes Review of Systems Const Denies weakness ENT Denies dizziness Card Denies chest pain, Denies chest pain with activity, Denies syncope, Denies rapid heart rate, Denies pedal edema, Denies edema, Denies leg edema, Denies lightheadedness, Denies palpitations, Denies dyspnea, Denies dyspnea on exertion and Denies orthopnea Resp Denies cough, Denies dyspnea and Denies dyspnea on exertion GI Denies hematochezia and Denies change in stool character Musc Denies abnormal gait, Denies muscle cramps, Denies muscle weakness, Denies numbness, Denies radiating pain into limb and Denies tingling Neuro Denies abnormal gait, Denies dizziness, Denies syncope, Denies numbness, Denies tingling and Denies weakness Endo Denies palpitations Physical Exam Vital Signs: Last Vital Signs Pulse 70 08/30/23 13:37 BP 146/70 H 08/30/23 13:37 BMI result Body Mass Index 29.3 Const General: comfortable and no acute distress Orientation/consciousness: patient oriented x3 HEENT Other: Unremarkable Head: Yes normal to inspection Neck Neck: Yes normal visual inspection Chest Chest palpation & inspection: normal inspection of the chest Resp Auscultation: clear to auscultation bilaterally Cardio Palpation: normal PMI Heart sounds: S1 normal heart sound present, S2 normal heart sound present, no gallops, no murmurs and no rubs GI Palpation (GI): Soft to palpation Back/Spine/Pelvis Other: unremarkable Skin General skin exam: no rashes or lesions noted Neuro General: patient oriented x3 Extrem General: Yes normal to inspection Psych Mental Status: mental status grossly normal Office Procedures EKG Details: EKG with sinus rhythm at 70/Min; VA prolongation to 220 millisecond; leftward axis; nonspecific ST-T changes. [id number], Complete Assessment & Plan Assessment & Plan (1) Atrial arrhythmia: Code(s): I49.8 - Other specified cardiac arrhythmias Plan: In the past, Holter/COLIN had shown very brief tachycardic episodes thought to be atrial tachycardia. Less likely to be flutter. In a prior EKG not clear if it is truly junctional or sinus where the P-waves are not too obvious. Then underwent Holter shows underlying sinus rhythm at an average rate of 82/Min. Rare supraventricular ectopy. She remains on beta-blockers. We can recheck another Holter in a year. (2) LAFB (left anterior fascicular block): Code(s): I44.4 - Left anterior fascicular block Plan: Chronic finding. Echocardiogram with preserved LVEF, 60-65%, mild diastolic dysfunction. (3) Essential hypertension: Code(s): I10 - Essential (primary) hypertension Plan: Borderline high blood pressure. No specific changes. She is already on lisinopril. (4) Controlled diabetes mellitus without complication, without long-term current use of insulin: Code(s): E11.9 - Type 2 diabetes mellitus without complications Qualifiers: Diabetes mellitus type: type 2 Qualified Code(s): E11.9 - Type 2 diabetes mellitus without complications Plan: Last hemoglobin A1c 6.8%. On Trulicity, metformin. (5) Family history of coronary artery disease in brother: Code(s): Z82.49 - Family history of ischemic heart disease and other diseases of the circulatory system Plan: Strong family history of coronary disease, ischemic cardiomyopathy, ICD in brother who from the same. Myocardial perfusion imaging study from 2020 did not show any ischemic findings. LDL level remains well controlled. Clinically she does not have any angina or concerning symptoms. Orders: Orders ECG 7 day holter monitor 1 Year I49.8 - Other specified cardiac arrhythmias Coding Level of Care Code Est Pt Level 4 (96320) Diagnoses Atrial arrhythmia I49.8 LAFB (left anterior fascicular block) I44.4 Essential hypertension I10 Controlled type 2 diabetes mellitus without complication, without long-term current use of insulin E11.9 Diabetes mellitus type: type 2 Family history of coronary artery disease in brother Z82.49 CPT Codes EKG - CPT: 76932-[id number], Complete ([id number])
== END 2023-08-30 13:58 | disposition home or self-care (01) ==
PROVIDERS: PCP Internal Medicine; Visit Provider Internal Medicine
DX: I49.8 Other specified cardiac arrhythmias (principal); I44.4 Left anterior fascicular block; I10 Essential (primary) hypertension; E11.9 Type 2 diabetes mellitus without complications; Z82.49 Family history of ischemic heart disease and other diseases of the circulatory system
CPT/HCPCS: 93010; 99214

== ENCOUNTER → 2023-08-30 13:26 | Outpatient (BNVA) | payer MEDICARE, MEDICAID, SELFPAY | PROVIDERS: PCP Internal Medicine; Visit Provider Internal Medicine | DX: I49.8 Other specified cardiac arrhythmias (principal); I44.4 Left anterior fascicular block; I10 Essential (primary) hypertension; E11.9 Type 2 diabetes mellitus without complications; Z82.49 Family history of ischemic heart disease and other diseases of the circulatory system; Z79.899 Other long term (current) drug therapy | CPT/HCPCS: 93005; 99212 ==

== ENCOUNTER 2023-12-10 10:31 | Outpatient (AMB) | payer MEDICARE, MEDICAID, SELFPAY ==
[2023-12-10 10:37] VITALS: BP 122/66; PULSE 74; O2SAT 97; BMI 29.9
--- NOTE | 2023-12-10 10:37 | A.OFFPC_ITS ---
Vital Signs 12/10/23 10:37 Height 5 ft 1 in Weight 158 lb 4 oz BMI 29.9 BP 122/66 Blood Pressure Location Lt brachial Position Sitting Pulse 74 Pulse Source Pulse Oximeter Pulse Oximetry (%) 97 Oxygen Delivery Method Room Air Intake Visit Reasons: Annual Exam Intake Note: Patient is here today for a physical. Soda Dry House Operator Required: No Accompanied by: Self / Same As Patient Allergies No Known Allergies [No Known Allergies*] Allergy (Verified 12/10/23 10:51) Medication List - Last Reconciled 12/10/23 by Anne Marie Fermin MD aspirin 81 mg PO DAILY atorvastatin 40 mg PO DAILY 90 days benzonatate 100 mg PO BID PRN 5 days blood sugar diagnostic (FreeStyle Lite Strips) As directed three times a day blood-glucose meter (FreeStyle Lite Meter kit) As directed to test blood sugar three times a day chlorhexidine gluconate 0.12% 15 mL buccal DAILY dulaglutide (Trulicity) 1.5 mg (0.5 mL) subcut QWEEK lancets As directed to test blood sugar three times a day lansoprazole 30 mg PO DAILY 90 days lisinopril 20 mg PO DAILY 90 days meclizine 25 mg PO BID 30 days metformin 1,000 mg PO BID 90 days metoprolol tartrate 50 mg PO BID 90 days potassium citrate ER 10 mEq PO BID 90 days Tobacco use date assessed: 12/10/23 Fall risk assessment: No Falls in past year Last assessed Fall Risk: 12/10/23 Dental Screening Dental Screen Date: 12/10/23 Did you have a dental visit in the last 12 months?: Yes Did you have a dental problem in the last 6 months where you did not have access to dental care?: No Was dental information given to patient?: Patient has dentist HPI HPI Comments History of Present Illness Details This is a 78-year-old female with diabetes mellitus type 2 that comes for her physical exam. Mammogram done 2023 was normal. Last diabetic eye exam was 2022 and has an appointment for 2023. A1c not on goal and I will increase Trulicity. She complains of a dry cough and multiple allergies and would like an internal affairs commander referral. No chest pain or shortness on breath. No need for Pap smear or colonoscopy due to age. [facility] Medical History (Updated 12/10/23 @ 11:38 by Anne Marie Fermin MD) Chronic fatigue Renal cyst DM2 (diabetes mellitus, type 2) Atrial arrhythmia Renal stones Iron deficiency anemia Essential hypertension Hypovitaminosis D Pure hypercholesterolemia Controlled diabetes mellitus without complication, without long-term current use of insulin Surgical History History of bilateral cataract extraction History of extraction of renal calculus History of total abdominal hysterectomy and bilateral salpingo-oophorectomy Family History Father No problems noted. Mother Diabetes Hypertension Social History Household Members: None Housing: Apartment Alcohol intake: never Patient Tobacco Use Status: Never used Tobacco e-Cigarette/Vaping Use: Never Used Second Hand Smoke Exposure: No service: No Current occupational status: disabled Cognitive needs: No Hearing needs: No Vision needs: Yes Questionnaire PHQ-9 Over the last 2 weeks, how often have you been bothered by any of the following problems? 1. Little interest or pleasure in doing things: not at all 2. Feeling down, depressed, or hopeless: not at all 3. Trouble falling or staying asleep, or sleeping too much: not at all 4. Feeling tired or having little energy: not at all 5. Poor appetite or overeating: not at all 6. Feeling bad about yourself - or that you are a failure or have let yourself or your family down: not at all 7. Trouble concentrating on things, such as reading the newspaper or watching television: not at all 8. Moving or speaking so slowly that other people could have noticed. Or the opposite - being so fidgety or restless that you have been moving around a lot more than usual: not at all 9. Thoughts that you would be better off or of hurting yourself in some way: not at all Total score: 0 Depression Screening Interpretation: Negative Depression Screening Done: Yes 23176 - PHQ-9 Billing: Yes Source: Developed by Drs. Pardeep Saul, Rae Walker, Rex Schuster and colleagues, with an educational mallory from [employer]. Thrive Questionnaire Date Thrive assessed: 12/10/23 I am a: Patient What is your living situation today?: I have a steady place to live Within the past 12 months, did the food you bought not last and you didn't have the money to get more?: Never true Within the past 12 months, did you worry whether your food would run out before you got money to buy more?: Never true Do you have trouble paying for medicines?: No Do you have trouble getting transportation to medical appointments?: No Do you have trouble paying your heating and electricity bill?: No Do you have trouble taking care of your child, family member or friend?: No Do you have trouble with day-to-day activities such as bathing, preparing meals, shopping, managing finances, etc.?: No Are you currently unemployed and looking for a job?: No Are you interested in more education?: No Please select the resources that you would like help with: None Currently or been in a relationship where the following occur: No concerns reported THRIVE Score: 0 AUDIT C Alcohol Use Questionnaire (AUDIT-C) 1. How often do you have a drink containing alcohol?: Never Total Score: 0 Score Reviewed/Action Taken: No NICHOLE-7 AMB Questionnaire NICHOLE-7 Date NICHOLE - 7 assessed: 12/10/23 Feeling nervous, anxious, or on edge: 0 = Not at all Not being able to stop or control worryin = Not at all Worrying too much about different things: 0 = Not at all Trouble relaxin = Not at all Being so restless that it is hard to sit still: 0 = Not at all Becoming easily annoyed or irritable: 0 = Not at all Feeling afraid as if something awful might happen: 0 = Not at all Total NICHOLE-7 score (0-4 normal; 5-9 mild; 10-14 moderate; 15-21 severe): 0 Source: Developed by Drs. Pardeep Saul, Rae Walker, Rex Schuster and colleagues, with an educational mallory from [employer]. NICHOLE-7 Assessment Billing NICHOLE-7 Assessment Tool: NICHOLE-7 Assessment 95945 Review of Systems Const All systems reviewed & are unremarkable except as noted in HPI and below Card Denies chest pain at rest, Denies chest pain with activity, Denies edema, Denies irregular heart rhythm, Denies claudication, Denies dyspnea, Denies dyspnea on exertion, Denies orthopnea, Denies paroxysmal nocturnal dyspnea and Denies slow heart rate Resp Denies cough, Denies dyspnea and Denies dyspnea on exertion Neuro Denies behavioral changes, Denies confusion and Denies lack of coordination Psych Denies behavioral changes and Denies confusion Physical exam (Primary Care) Vital Signs: Last Vital Signs Pulse 74 12/10/23 10:37 BP 122/66 12/10/23 10:37 Pulse Ox 97 12/10/23 10:37 Oxygen Delivery Method Room Air 12/10/23 10:37 BMI result Body Mass Index 29.9 Tobacco/Smoking Status: Tobacco use Status Tobacco use date assessed 12/10/23 12/10/23 10:39 Patient Tobacco Use Status Never used Tobacco 12/10/23 10:39 e-Cigarette/Vaping Use Never Used 12/10/23 10:39 PHQ-9: PHQ-9 Score PHQ-9: Total score 0 12/10/23 10:53 Depression Screening Interpretation: Negative Thrive Assessment: Date of Thrive Assessment Date Thrive assessed 12/10/23 12/10/23 10:39 Currently or been in a relationship where the following occur: No concerns reported Const General: No confusion Orientation/consciousness: patient oriented x3 and No confusion HENMT Head: Yes normal to inspection, Yes normocephalic and Yes atraumatic Ears: external ears normal Eyes General: appearance normal, both eyes and all related structures Eyelids: Yes eyelids normal Conjunctivae: conjunctivae normal Neck Neck: Yes normal visual inspection and Yes supple Resp Effort & Inspection: normal respiratory effort Auscultation: clear to auscultation bilaterally Cardio Jugular venous distension: no JVD Rate: regular rate Rhythm: regular rhythm Heart sounds: S1 normal heart sound present and S2 normal heart sound present GI Inspection: Yes normal to inspection Palpation (GI): Soft to palpation and nontender Auscultation: normal bowel sounds Skin General skin exam: no rashes or lesions noted Neuro General: patient oriented x3, no focal motor deficits and No confusion Extrem General: Yes full ROM Psych Appearance: grossly normal Results AMB Hemoglobin A1c AMB Hemoglobin A1c 7.5 % Last Edit by CASSANDRA Hubbard on 12/10/23 10:53 Results Reviewed Results Reviewed: Laboratory Last Values Hgb A1c (Clinic) 7.5 % (4.0-6.0) H 07/01/24 10:53 Assessment and Plan Assessment & Plan (1) Physical exam: Code(s): Z00.00 - Encounter for general adult medical examination without abnormal f indings Plan: Repeat in a year. (2) DM2 (diabetes mellitus, type 2): Code(s): E11.9 - Type 2 diabetes mellitus without complications Qualifiers: Diabetes mellitus exterminator termite insulin use: without exterminator termite use Diabetes mellitus complication status: without complication Qualified Code(s): E11.9 - Type 2 diabetes mellitus without complications Plan: Continue metformin. Increase Trulicity. A1c goal is equal or less than 7%. (3) Multiple allergies: Code(s): Z88.9 - Allergy status to unspecified drugs, medicaments and biological substances Plan: Referred to an internal affairs commander. Orders: Orders AMB Hemoglobin A1c Today E11.9 - Type 2 diabetes mellitus without complications Microalbumin, Random (w Creat) Today E11.9 - Type 2 diabetes mellitus without complications Vitamin D 25-OH Total Today E55.9 - Vitamin D deficiency, unspecified Lipid Panel Today E78.5 - Hyperlipidemia, unspecified Comprehensive [place]. Panel Fast Today Z00.00 - Encounter for general adult medical examination without abnormal findings Medications: New dulaglutide (Trulicity) 3 mg (0.5 mL) subcut QWEEK 6.5 mL 1RF 90 days E11.9 - Type 2 diabetes mellitus without complications Refilled aspirin 81 mg PO DAILY 90 tabs 3RF atorvastatin 40 mg PO DAILY 90 tabs 3RF 90 days E78.00 - Pure hypercholesterolemia, unspecified metformin 1,000 mg PO BID 180 tabs 1RF 90 days metoprolol tartrate 50 mg PO BID 180 tabs 1RF 90 days benzonatate 100 mg PO BID PRN 10 caps 0RF cough 5 days lansoprazole 30 mg PO DAILY 90 caps 1RF 90 days lisinopril 20 mg PO DAILY 90 tabs 1RF 90 days I10 - Essential (primary) hypertension potassium citrate ER 10 mEq PO BID 180 tabs 1RF 90 days N20.0 - Calculus of kidney Discontinued dulaglutide (Trulicity) Discontinued Reason: Patient Completed Course 1.5 mg (0.5 mL) subcut QWEEK 2 mL 6RF E11.9 - Type 2 diabetes mellitus without complications Coding Level of Care Code Est Pt Level 3 (55593) Est Pt Prev Care >65y(49261) Diagnoses Physical exam Z00.00 Type 2 diabetes mellitus without complication, without long-term current use of insulin E11.9 Diabetes mellitus exterminator termite insulin use: without exterminator termite use Diabetes mellitus complication status: without complication Multiple allergies Z88.9 Additional Codes NICHOLE-7 Assessment Billing - NICHOLE-7 Assessment Tool: NICHOLE-7 Assessment [id number] ([id number]) Time Spent (min) 35
== END 2023-12-10 11:04 | disposition home or self-care (01) ==
PROVIDERS: PCP Internal Medicine; Visit Provider Internal Medicine
DX: Z00.00 Encounter for general adult medical examination without abnormal findings (principal); E11.9 Type 2 diabetes mellitus without complications; Z88.9 Allergy status to unspecified drugs, medicaments and biological substances
CPT/HCPCS: 83036; 99213; 99397

== ENCOUNTER 2023-12-17 08:48 | Outpatient (REF) | payer MEDICARE, MEDICAID, SELFPAY ==
--- NOTE | ~2023-12-17 | US_ITS ---
EXAMINATION: US RETROPERITONEAL LIMITED (RENAL ONLY) CLINICAL INFORMATION: Nephrolithiasis. COMPARISON: Ultrasound 05/16/2023. TECHNIQUE: Ultrasound of the kidneys was performed. FINDINGS: RIGHT KIDNEY: 9.4 x 4.1 x 4.8 cm (SAG x AP x TRV). The kidney is normal in size, contour, and echogenicity. Renal cortical thickness is normal. No focal parenchymal lesions. At least 4 echogenic foci are seen scattered throughout the kidneys ranging in size from 4 to 5 mm in size consistent with nonobstructing calculi. No hydronephrosis. LEFT KIDNEY: 10.8 x 4.5 x 4.8 cm (SAG x AP x TRV). The kidney is normal in size, contour, and echogenicity. Renal cortical thickness is normal. At least 3 calculi are seen in the lower pole ranging in size from 4 to 8 mm without hydronephrosis. Two benign Bosniak class I renal cysts are noted which require no additional imaging or followup. No solid renal masses are seen. US/US renal BI IMPRESSION: Bilateral nonobstructing renal calculi.
[2023-12-17 12:40] LABS: Alanine Aminotransferase 25 U/L (0-31); Albumin Level 4.4 g/dL (3.5-5.0); Alkaline Phosphatase 81 U/L (39-117); Anion Gap 12 (12-20); Aspartate Amino Transferase 21 U/L (5-31); Bilirubin Total 0.7 mg/dL (0.0-1.0); Blood Urea Nitrogen 20 mg/dL (9-16); Calcium 10.1 mg/dL (8.4-10.2); Carbon Dioxide 31 mmol/L (22-29); Chloride 103 mmol/L (96-108); Cholesterol 146 mg/dL (<200); Estimated Glomerular Filt Rate > 60; Glucose Fasting 137 mg/dL (60-99); HDL Cholesterol 42 mg/dL (>40); LDL Cholesterol Calculated 82 mg/dL (<100); Potassium 5.1 mmol/L (3.3-5.1); Sodium 141 mmol/L (135-145); Total Protein 7.5 g/dL (6.5-8.0); Triglycerides 114 mg/dL (<150)
[2023-12-17 12:52] LABS: Creatinine Urine 98.81 mg/dL; Microalbum/Creatinine Ratio Ur 13.1 ug/mg cr (<30)
[2023-12-17 12:57] LABS: Vitamin D 25-OH Total 29.2 ng/mL (>30)
== END 2023-12-17 08:49 | disposition home or self-care (01) ==
LOC: HO.US 08:48
PROVIDERS: Absent Provider Internal Medicine; PCP Internal Medicine; Visit Provider Urology
DX: N20.0 Calculus of kidney (principal); E11.9 Type 2 diabetes mellitus without complications; E55.9 Vitamin D deficiency, unspecified; E78.5 Hyperlipidemia, unspecified; Z00.00 Encounter for general adult medical examination without abnormal findings
CPT/HCPCS: 36415; 76775; 80053; 80061; 82043; 82306; 82570

== ENCOUNTER 2024-01-08 13:58 | Outpatient (AMB) | payer MEDICARE, MEDICAID, SELFPAY ==
--- NOTE | 2024-01-08 14:08 | A.OFFVIS_ITS ---
Intake Visit Reasons: US results(set) Intake Note: Patient is Present for US Follow Up Urology Med: None Antibiotic Allergy: None Blood Thinner: Aspirin Whittling Room Operator Required: No Allergies No Known Allergies [No Known Allergies*] Allergy (Verified 01/08/24 14:09) HPI Comments Details: Caroline is a pleasant Hungarian-speaking female. She is a patient Dr. Fermin. She is seen for the following urologic conditions - nephrolithiasis Six month Hungarian translation provided by qualified medical claims processor Continues with moderate bilateral stones Has background diabetes PH 7.5. On alkalization - KCit 10 meq p.o. b.i.d. 6 siz month f/u imaging nurse pracitioner Nephrolithiasis Longstanding Multiple prior procedures Concurrent diabetes Imaging - 03/30 renal ultrasound with 2 cm right renal stone, multiple small left renal stones, multiple bilateral cysts - 05/03 renal ultrasound bilateral 5 mm stones - 12/02 renal ultrasound bilateral stones Therapeutic plan - continue lemon water - surveillance imaging [facility] Medical History (Updated 12/10/23 @ 11:38 by Anne Marie Fermin MD) Chronic fatigue Renal cyst DM2 (diabetes mellitus, type 2) Atrial arrhythmia Renal stones Iron deficiency anemia Essential hypertension Hypovitaminosis D Pure hypercholesterolemia Controlled diabetes mellitus without complication, without long-term current use of insulin Surgical History History of bilateral cataract extraction History of extraction of renal calculus History of total abdominal hysterectomy and bilateral salpingo-oophorectomy Family History Father No problems noted. Mother Diabetes Hypertension Social History Household Members: None Housing: Apartment Alcohol intake: never Patient Tobacco Use Status: Never used Tobacco e-Cigarette/Vaping Use: Never Used Second Hand Smoke Exposure: No service: No Current occupational status: disabled Cognitive needs: No Hearing needs: No Vision needs: Yes Review of Systems Const Denies chills and Denies fever(s) Card Reports no additional complaints and Denies syncope Resp Denies cough GI Denies abdominal pain and Denies heartburn Reports as per HPI and Denies change in libido Neuro Denies syncope Psych Denies change in libido Endo Denies change in libido Physical Exam Const General: cooperative, healthy appearing, comfortable and no acute distress Orientation/consciousness: patient oriented x3 HEENT Face and sinus: Yes normal facial exam Mouth: moist mucous membranes Neck Neck: Yes normal visual inspection, Yes full ROM and Yes trachea midline Chest Chest palpation & inspection: normal inspection of the chest Resp Effort & Inspection: normal respiratory effort, able to speak in complete sentences and no respiratory distress GI Inspection: Yes normal to inspection Back/Spine/Pelvis Cervical Spine: normal cervical lordosis Thoracic/Lumbar Spine: thoracic and lumbar spine normal to inspection Skin General skin exam: no rashes or lesions noted Neuro General: patient oriented x3, gait normal, tone normal and moves all extremities Extrem General: Yes normal to inspection and Yes capillary refill normal Results AMB Urinalysis, Automated UA Leukoctes 0 Nakia/uL Last Edit by CASSANDRA Spence on 01/08/24 14:42 UA Nitrite Negative Last Edit by CASSANDRA Spence on 01/08/24 14:42 UA Urobilinogen 0.2 mg/dL Last Edit by Huber Edgar CCM on 01/08/24 14:4 2 UA Protein 0 mg/dL Last Edit by CASSANDRA Spence on 01/08/24 14:42 UA pH 7.5 Last Edit by CASSANDRA Spence on 01/08/24 14:42 UA Blood 0 Jake/uL Last Edit by Huber Edgar CCM on 01/08/24 14:42 UA Specific [place] 1.010 Last Edit by CASSANDRA Spence on 01/08/24 14: 42 UA Ketone Negative Last Edit by CASSANDRA Spence on 01/08/24 14:42 UA Bilirubin 0 mg/dL Last Edit by CASSANDRA Spence on 01/08/24 14:42 UA Glucose 0 mg/dL Last Edit by Huber Edgar CCM on 01/08/24 14:42 Assessment & Plan Assessment & Plan (1) Bilateral nephrolithiasis: Code(s): N20.0 - Calculus of kidney Category: Medical Plan Six month follow-up imaging Orders: Orders AMB Urinalysis Automated Today Z13.9 - Encounter for screening, unspecified Patient Instructions: Imaging studies, laboratory and physical exam results were discussed and reviewed in detail. No major barriers to patient understanding were identified. An opportunity to ask questions regarding the treatment plan was provided. All questions were answered. The patient expressed understanding and agreement with the above treatment plan. The patient is aware they should contact our office by phone for worsening of their current condition or the appearance of new urologic symptoms. Compliance is encouraged with any medications and followup testing that is ordered. It is a privilege to participate in the urologic care of your patient. If you have any questions or concerns regarding treatment for the above conditions, or other urologic issues, please do not hesitate to contact me. The office telephone contact is [phone]. This note is constructed using voice recognition software. While every effort has been made to ensure accuracy supervisor asphalt paving errors may have been included. Yours sincerely, Dr Louis Srerano MD, [facility] - Urology Providers of Expert, Compassionate Care for the Genitourinary System Coding Level of Care Code Est Pt Level 3 (93839) Diagnoses Bilateral nephrolithiasis N20.0
== END 2024-01-08 14:56 | disposition home or self-care (01) ==
PROVIDERS: PCP Internal Medicine; Visit Provider Urology
DX: N20.0 Calculus of kidney (principal); Z13.9 Encounter for screening, unspecified
CPT/HCPCS: 99213

== ENCOUNTER → 2024-01-08 13:58 | Outpatient (BNVA) | payer MEDICARE, MEDICAID, SELFPAY | PROVIDERS: PCP Internal Medicine; Visit Provider Urology | DX: N20.0 Calculus of kidney (principal) | CPT/HCPCS: 81003; 99212 ==

== ENCOUNTER 2024-04-20 08:11 | Emergency (ER) | payer MEDICARE, MEDICAID, SELFPAY ==
[2024-04-20 08:12] VITALS: BP 156/68; PULSE 74; RESP 18; TEMP 36.5; O2SAT 99; BMI 27.9
--- NOTE | 2024-04-20 08:35 | ED_ITS ---
HPI - Back Pain/Injury General Chief Complaint: Back Pain/Injury Stated Complaint: r leg pain Time Seen by Provider: 04/20/24 08:24 Source: patient, family ( daughter) and government services professional Mode of arrival: ambulatory Limitations: no limitations History of Present Illness ED Provider: DR. Prabhakar HPI Narrative: a 78-year-old female came in with her daughter for evaluation of right lower back pain radiating to the right leg symptoms started 2-3 weeks ago some days is worse than the other woke up this morning with worsening of low back pain radiating to the right leg, patient remember falling few months ago but no recent fall, no history of heavy lifting. No fever, no chills, no urinary incontinence, no dysuria, no urinary frequency, no blood in the urine, no weakness, no numbness, able to ambulate in a steady gait. Related Data Home Medications ?Medication ?Instructions ?Recorded ?Confirmed lancets 28 gauge 06/30/21 01/08/24 chlorhexidine gluconate 0.12 % 15 ml buccal DAILY 07/18/22 01/08/24 mouthwash Previous Rx's ?Medication ?Instructions ?Recorded meclizine 25 mg tablet 25 mg PO BID 30 days #60 tabs 06/01/21 blood sugar diagnostic (FreeStyle #100 ea 06/30/21 Lite Strips) blood-glucose meter (FreeStyle #1 ea 06/30/21 Lite Meter kit) aspirin 81 mg tablet,delayed 81 mg PO DAILY #90 tabs 12/10/23 release atorvastatin 40 mg tablet 40 mg PO DAILY 90 days #90 tabs 12/10/23 benzonatate 100 mg capsule 100 mg PO BID PRN cough 5 days #10 12/10/23 caps dulaglutide 3 mg/0.5 mL 3 mg (0.5 mL) subcut QWEEK 90 days 12/10/23 subcutaneous pen [facility]6.[facility] lansoprazole 30 mg capsule,delayed 30 mg PO DAILY 90 days #90 caps 12/10/23 release lisinopril 20 mg tablet 20 mg PO DAILY 90 days #90 tabs 12/10/23 potassium citrate 10 mEq (1,080 10 meq PO BID 90 days #180 tabs 12/10/23 mg) tablet,extended release metformin 1,000 mg tablet 1,000 mg PO BID 90 days #180 tabs 01/16/24 metoprolol tartrate 50 mg tablet 50 mg PO BID 90 days #180 tabs 01/16/24 Allergies Allergy/AdvReac Type Severity Reaction Status Date / Time No Known Allergies Allergy Verified 04/20/24 08:14 [No Known Allergies*] Review of Systems Review of Systems: All other systems are reviewed and are negative Constitutional: Reports as per HPI and Reports no additional constitutional complaints Eyes: Reports as per HPI and Reports no additional eye complaints Reports system reviewed and no additional complaints, except as documented Cardiovascular: Reports as per HPI and Reports no additional cardiovascular complaints Respiratory: Reports as per HPI and Reports no additional respiratory complaints Gastrointestinal: Reports as per HPI and Reports no additional gastrointestinal complaints Genitourinary: Reports no additional female genitourinary complaints Musculoskeletal: Reports no additional musculoskeletal complaints Skin/Breast: Reports system reviewed and no additional complaints, except as docu Psychiatric: Reports no additional psychiatric complaints Endocrine: Reports no additional endocrine complaints Hematologic/Lymphatic: Reports no additional hematologic/lymphatic complaints Allergic/Immunologic: Reports no additional allergic/immunologic complaints Reports system reviewed and no additional complaints, except as documented and Reports Abnormal speech present [facility] Past Medical History Medical History Chronic fatigue Renal cyst DM2 (diabetes mellitus, type 2) Atrial arrhythmia Renal stones Iron deficiency anemia Essential hypertension Hypovitaminosis D Pure hypercholesterolemia Controlled diabetes mellitus without complication, without long-term current use of insulin Surgical History History of bilateral cataract extraction History of extraction of renal calculus History of total abdominal hysterectomy and bilateral salpingo-oophorectomy Family History Family History Father No problems noted. Mother Diabetes Hypertension Social History Social History Household Members: None Housing: Apartment Alcohol intake: never Patient Tobacco Use Status: Never used Tobacco e-Cigarette/Vaping Use: Never Used Second Hand Smoke Exposure: No Advance Directives: No Advance Directives Information Provided: No service: No Current occupational status: disabled Cognitive needs: No Hearing needs: No Vision needs: Yes Physical Exam Vital Signs: Vital Signs: Last Vital Signs Temp 97.7 F 04/20/24 08:12 Pulse 74 04/20/24 08:12 Resp 18 04/20/24 08:12 BP 156/68 H 04/20/24 08:12 Pulse Ox 99 04/20/24 08:12 O2 Del Method Room Air 04/20/24 08:12 BMI result Body Mass Index 27.9 Vital signs have been reviewed and appear to be correct. Blood pressure elevated. Heart rate normal. Respiratory rate normal. Temperature normal. Oxygen saturation normal. Appearance: Alert. Oriented X3. No acute distress. Head: Normal external exam. Normocephalic. Atraumatic. No Thomas signs noted. No raccoon eyes noted Eyes: PERRLA. EOMI. Conjunctiva and sclera normal. Eyelids normal. ENT: TM's Normal. Pharynx normal. Uvula midline. Moist mucous membranes. No trismus noted. No drooling noted. No muffled voice noted. Neck: Normal inspection. Neck supple. FROM. No adenopathy. Thyroid Normal. No meningeal signs. No neck mass noted. CVS: Normal heart rate and rhythm. Heart sound normal. No murmurs noted. Pulses normal throughout. Respiratory: No respiratory distress. Painless inspiration. Breath sounds normal. No wheezes/rales/rhonchi noted. Chest nontender. No accessory muscle usage noted or decreased air movement noted. Abdomen: Soft and nontender. Bowel sounds normal in all 4 quadrants. No distention noted. No organomegaly noted. No visible injury noted. Back: No CVA tenderness. Full range of motion noted. Skin: Skin warm and dry. Normal skin color. Normal skin turgor. No rashes/lesions/lacerations noted. Extremities: No lower extremity edema. Extremities exhibit normal range of motion. Extremities nontender. Neuro: Oriented X 3. Cranial nerve exam: II-XII are grossly intact No motor deficit. No sensory deficit. Reflexes normal. Able to ambulate on both toes and heels, perianal sensation is intact. Course Reevaluation(s) Reevaluation #1: Feels better after Toradol IM injection, normal neuro exam, no neurological deficit, UA is unremarkable. Patient was instructed to rest, heating pad, using NSAIDs if needed and follow- up with PCP . Patient was also instructed to seek immediate medical attention for a new weakness or worsening of the pain Time: 09:56 Medications Administered Discontinued Medications Generic Name Dose Route Start Last Admin Trade Name Munira PRN Reason Stop Dose Admin Ketorolac Tromethamine 15 mg 04/20/24 08:34 04/20/24 08:41 Ketorolac Tromethamine 15 Mg/Ml Vial IM 04/20/24 08:35 15 mg ONCE ONE Administration Medical Decision Making Differential Diagnosis Differential Diagnoses: The differential diagnosis associated with the presentation includes ( sciatica, back pain, UTI, pyelonephritis, cauda equinus syndrome.) Admission/Observation Consideration of admission/observation: Escalation of care including admission/observation considered Lab Data MDM Lab Attestation statement: I reviewed the patient's lab results. Labs: Lab Results 04/20/24 Range/Units 09:28 Urine Color Yellow Urine Appearance Clear Urine pH 5.5 (5.0-9.0) Ur Specific [place] 1.015 (1.005-1.025) Urine Protein Negative (Neg-Trace) mg/dL Urine Glucose (UA) Negative (Negative) mg/dL Urine Ketones Negative (Negative) mg/dL Urine Blood Negative (Negative) Urine Nitrite Negative (Negative) Ur Leukocyte Esterase Small (1+) H (Negative) Urine RBC 0-2 (0-2) /HPF Urine WBC 0-5 (0-5) /HPF Ur Squamous Epith Cells 3-5 (0-2) /HPF Urine Bacteria None Seen (None Seen) Hyaline Casts 0-2 (0-2) /LPF Discharge Plan Discharge Clinical Impression: Lumbar back pain with radiculopathy affecting right lower extremity Patient Disposition: Home, Self-Care Instructions: Lumbar Radiculopathy (ED) Additional Instructions: take [id number] ibuprofen 200 mg tablet every 6 hours if needed for pain, apply heating pad to the area of pain, no strenuous activity, no bending, no heavy lifting, no squatting. Prescriptions: No Action metoprolol tartrate 50 mg tablet 50 mg PO BID 90 Days Qty: 180 1RF metformin 1,000 mg tablet 1,000 mg PO BID 90 Days Qty: 180 1RF meclizine 25 mg tablet 25 mg PO BID 30 Days Qty: 60 1RF aspirin 81 mg tablet,delayed release (DR/EC) 81 mg PO DAILY Qty: 90 3RF atorvastatin 40 mg tablet 40 mg PO DAILY 90 Days Qty: 90 3RF benzonatate 100 mg capsule 100 mg PO BID PRN (Reason: cough) 5 Days Qty: 10 0RF lansoprazole 30 mg capsule,delayed release(DR/EC) 30 mg PO DAILY 90 Days Qty: 90 1RF lisinopril 20 mg tablet 20 mg PO DAILY 90 Days Qty: 90 1RF potassium citrate 10 mEq (1,080 mg) tablet extended release 10 meq PO BID 90 Days Qty: 180 1RF Trulicity 3 mg/0.5 mL pen injector 3 mg subcut QWEEK 90 Days Qty: 6.5 1RF chlorhexidine gluconate 0.12 % mouthwash 15 ml buccal DAILY (DME) lancets 28 gauge misc See Rx Instructions topical DAILY Rx Instructions: As directed to test blood sugar three times a day (DME) FreeStyle Lite Strips Strip See Rx Instructions .ROUTE .MEDSUPPLY Qty: 100 11RF Rx Instructions: As directed three times a day (DME) blood-glucose meter [FreeStyle Lite Meter] Kit See Rx Instructions .Route Qty: 1 0RF Rx Instructions: As directed to test blood sugar three times a day Referrals: Anne Marie Nolan MD [Primary Care Provider] - Print Language: Maltese
[2024-04-20] MEDS: Ketorolac Tromethamine 15 MG/ML VIAL IM (08:41)
[2024-04-20 09:38] LABS: Appearance Urine Clear; Color Urine Yellow; Glucose Urine UA Negative (Negative); Leukocyte Esterase Urine Small (1+) (Negative); Nitrite Urine Negative (Negative); PH 5.5 (5.0-9.0); Specific Gravity - Urine 1.015 (1.005-1.025); UMIC TRIGGER UACC YES; Urine Blood Negative (Negative); Urine Ketones Negative (Negative); Urine Protein Negative (Neg-Trace)
[2024-04-20 09:51] LABS: Bacteria Urine None Seen (None Seen); Hyaline Casts Urine 0-2 /LPF (0-2); RBC Urine 0-2 /HPF (0-2); UACC Culture Trigger YES; WBC Urine 0-5 /HPF (0-5)
[2024-04-20 10:39] VITALS: BP 142/62; PULSE 70; RESP 18; TEMP 36.5; O2SAT 98
[2024-04-20 10:40] VITALS: BP 142/62; PULSE 70; RESP 18; TEMP 36.5; O2SAT 98
== END 2024-04-20 10:41 | disposition home or self-care (01) ==
PROVIDERS: Emergency Provider Emergency Medicine; PCP Internal Medicine
DX: M54.16 Radiculopathy, lumbar region (principal); M54.50 Low back pain, unspecified; M79.604 Pain in right leg; Z79.899 Other long term (current) drug therapy
CPT/HCPCS: 81001; 87086; 96372; 99284; J1885

== ENCOUNTER 2024-04-26 07:31 | Emergency (ER) | payer MEDICARE, MEDICAID, SELFPAY ==
--- NOTE | ~2024-04-26 | XR_ITS ---
EXAMINATION: XR LUMBOSACRAL SPINE CLINICAL INFORMATION: Lower back pain. COMPARISON: Lumbar spine radiographs dated 06/21/2016. TECHNIQUE: Three views of the lumbosacral spine. FINDINGS: Normal vertebral body alignment. The lumbar lordosis is maintained. No acute fracture or subluxation. No loss of vertebral body height. Mild multilevel loss of intervertebral disc height with tiny endplate osteophytes, progressed when compared to the prior examination. Bilateral facet arthropathy at L5-S1. No concerning lytic or blastic osseous lesion. Atherosclerotic calcifications. XR/XR lumbar spine 2-3V IMPRESSION: Mild multilevel degenerative disc disease, progressed when compared to the prior examination. Bilateral facet arthropathy at L5-S1. Electronically signed by: Estiven Stevens MD 04/26/2024 08:59 AM RAEGAN
--- NOTE | ~2024-04-26 | XR_ITS ---
EXAMINATION: XR HIP, RIGHT CLINICAL INFORMATION: Right hip pain. COMPARISON: None available. TECHNIQUE: AP view of the pelvis as well as AP and frog-leg lateral views of the right hip. FINDINGS: No acute fracture or dislocation. Mild bilateral hip joint space narrowing with small marginal osteophytes. No concerning lytic or blastic osseous lesion. No evidence of avascular necrosis. Irregular soft tissue calcifications within the pelvis measuring up to 3.1 and 2.2 cm. Findings are nonspecific. XR/XR hip RT w PEL1V IMPRESSION: 1. Mild bilateral hip osteoarthritis. 2. Irregular soft tissue calcifications within the pelvis measuring up to 2.2 cm. Findings are nonspecific. Electronically signed by: Estiven Stevens MD 04/26/2024 08:55 AM RAEGAN GIBSON
[2024-04-26 07:40] VITALS: BP 133/58; PULSE 70; RESP 16; TEMP 36.3; O2SAT 98; BMI 28.3
--- NOTE | 2024-04-26 07:57 | ED_ITS ---
HPI - Back Pain/Injury General Chief Complaint: General Medical Stated Complaint: back pain Time Seen by Provider: 04/26/24 07:43 Source: patient, family and old records reviewed Mode of arrival: ambulatory Limitations: no limitations History of Present Illness ED Provider: USMAN MCMILLAN Narrative: 78 yo female with PMH Of GERD, DM2, HTN, HLD not on thinners here with c/o atraumatic R buttock pain since Last weekend - she notes she has pain in the R buttock that radiates sharply down the leg. No b/b incontinence, no saddle anesthesia. She has tried motrin/tylenol with little relief. She denies hx of sciatica. She feels the pain when she steps and walks MD elicited complaint: back pain Onset (ago): day(s) (7) Timing: constant Severity: moderate Similar Symptoms Previously: No Quality: sharp Location: sacrum Radiation: right leg below the knee Exacerbating factors: movement and walking Relieving factors: none Context: unknown Associated symptoms: denies other symptoms Treatments prior to arrival: NSAIDS Work related injury: No Related Data Home Medications ?Medication ?Instructions ?Recorded ?Confirmed lancets 28 gauge 06/30/21 01/08/24 chlorhexidine gluconate 0.12 % 15 ml buccal DAILY 07/18/22 01/08/24 mouthwash Previous Rx's ?Medication ?Instructions ?Recorded meclizine 25 mg tablet 25 mg PO BID 30 days #60 tabs 06/01/21 blood sugar diagnostic (FreeStyle #100 ea 06/30/21 Lite Strips) blood-glucose meter (FreeStyle #1 ea 06/30/21 Lite Meter kit) aspirin 81 mg tablet,delayed 81 mg PO DAILY #90 tabs 12/10/23 release atorvastatin 40 mg tablet 40 mg PO DAILY 90 days #90 tabs 12/10/23 benzonatate 100 mg capsule 100 mg PO BID PRN cough 5 days #10 12/10/23 caps dulaglutide 3 mg/0.5 mL 3 mg (0.5 mL) subcut QWEEK 90 days 12/10/23 [facility] lansoprazole 30 mg capsule,delayed 30 mg PO DAILY 90 days #90 caps 12/10/23 release lisinopril 20 mg tablet 20 mg PO DAILY 90 days #90 tabs 12/10/23 potassium citrate 10 mEq (1,080 10 meq PO BID 90 days #180 tabs 12/10/23 mg) tablet,extended release metformin 1,000 mg tablet 1,000 mg PO BID 90 days #180 tabs 01/16/24 metoprolol tartrate 50 mg tablet 50 mg PO BID 90 days #180 tabs 01/16/24 tramadol 50 mg tablet 50 mg PO Q8H PRN pain #20 tabs 04/26/24 Allergies Allergy/AdvReac Type Severity Reaction Status Date / Time No Known Allergies Allergy Verified 04/26/24 07:42 [No Known Allergies*] Review of Systems Review of Systems: Constitutional : No Weight loss, No Fever, No Chills, ENT/Mouth : No Hearing loss, No Ear Pain, No Nasal Congestion, No Sinus Pain, No Hoarseness, No sore throat, No Rhinorrhea, No Swallowing Difficulty Cardiovascular : No Chest Pain, No SOB Respiratory : No Cough, No Dyspnea Gastrointestinal : No Nausea, No Vomiting, No Diarrhea, No abdominal Pain, No Hematochezia, No Melena Genitourinary : No Dysuria, No Urinary Frequency, No Hematuria, No Urinary Incontinence, Musculoskeletal : positive back pain Skin : No Skin Lesions, No rash Neuro : No Weakness, No Numbness, No Paresthesias, no loss of bowel or bladder incontinence, no saddle anesthesia All other systems reviewed and are negative [facility] Past Medical History Attestation statement: The following information was validated with the patient. Source: old records reviewed Medical History Chronic fatigue Renal cyst DM2 (diabetes mellitus, type 2) Atrial arrhythmia Renal stones Iron deficiency anemia Essential hypertension Hypovitaminosis D Pure hypercholesterolemia Controlled diabetes mellitus without complication, without long-term current use of insulin Surgical History History of bilateral cataract extraction History of extraction of renal calculus History of total abdominal hysterectomy and bilateral salpingo-oophorectomy Family History Family History Father No problems noted. Mother Diabetes Hypertension Social History Social History Household Members: None Housing: Apartment Alcohol intake: never Patient Tobacco Use Status: Never used Tobacco e-Cigarette/Vaping Use: Never Used Second Hand Smoke Exposure: No Advance Directives: No Advance Directives Information Provided: No service: No Current occupational status: disabled Cognitive needs: No Hearing needs: No Vision needs: Yes Physical Exam Vital Signs: Vital Signs: Last Vital Signs Temp 97.3 F 04/26/24 07:40 Pulse 70 04/26/24 07:40 Resp 16 04/26/24 07:40 BP 133/58 L 04/26/24 07:40 Pulse Ox 98 04/26/24 07:40 O2 Del Method Room Air 04/26/24 07:40 BMI result Body Mass Index 28.3 Appearance: Alert. Oriented X3. No acute distress. Eyes: Pupils equal, round and reactive to light. ENT: Pharynx normal. Neck: Normal inspection. Neck supple. CVS: Normal heart rate and rhythm. Pulses normal. Respiratory: No respiratory distress. Breath sounds normal. Abdomen: Soft and nontender. Back: R buttock palpation reproduces pain Skin: Skin warm and dry. Normal skin color. Normal skin turgor. Extremities: No lower extremity edema. No calf ttp Neuro: Oriented X 3. No motor deficit. No sensory deficit. SILT inner thight, 2+ DTR in patella, no clonus L5 5/5 bilaterally Medications Administered Discontinued Medications Generic Name Dose Route Start Last Admin Trade Name Munira PRN Reason Stop Dose Admin Lidocaine 1 patch 04/26/24 08:06 04/26/24 08:30 Lidocaine 4 % Patch Adh..Patch TRANSDERMA 04/26/24 08:07 1 patch ONCE ONE Administration Protocol Tramadol HCl 50 mg 04/26/24 08:06 04/26/24 08:30 Tramadol Hcl 50 Mg Tablet PO 04/26/24 08:07 50 mg ONCE ONE Administration Medical Decision Making Medical Decision Making MDM Narrative: 78 yo female with PMH Of GERD, DM2, HTN, HLD not on thinners here with c/o R buttock pain radiating down the leg - on exam no b/b incontinence, saddle anesthsia and she is NV intact with benign abdomen at this time xrays of R hip and lumbar spine to evaluate for compression injury but suspect sciatica. She has no cauda equina symptoms - will need pain control and referral back to PCP for PT therapy Differential Diagnosis Differential Diagnoses: The differential diagnosis associated with the presentation includes lumbar radiculophathy, sciatica Admission/Observation Consideration of admission/observation: Escalation of care including admission/observation considered no cauda equina symptoms and able to walk can follow up with PCP for PT pain improved with tramadol - no hx of seizures Independent Interpretation I performed an independent interpretation of an: Plain X-Ray (no acute trauma) Radiology Impression Discussion of test interpretation with radiology: I have reviewed the radiologist's reading. Independent Historian Clinical information obtained from an independent historian. History obtained from or confirmed by: Friend External Record Review External record reviewed: Outpatient record Prescription Management I considered prescription management with: Pain Medication Discharge Plan Discharge Clinical Impression: Sciatica Qualifiers: Laterality: right Qualified Code(s): M54.31 - Sciatica, right side Patient Disposition: Home, Self-Care Instructions: Sciatica (ED), Lower Back Exercises (ED) Additional Instructions: please follow up with your doctor for physical therapy return for any worsening pain, numbness, weakness, loss of control of bowel or bladder arthritis on xrays and disc disease of lower back you have an incidental finding on xray of calcifications in the pelvis - this is nonspecific but you need outpatient ultrasound by your doctor please call Sunday Prescriptions: New tramadol 50 mg tablet 50 mg PO Q8H PRN (Reason: pain) Qty: 20 0RF No Action metoprolol tartrate 50 mg tablet 50 mg PO BID 90 Days Qty: 180 1RF metformin 1,000 mg tablet 1,000 mg PO BID 90 Days Qty: 180 1RF meclizine 25 mg tablet 25 mg PO BID 30 Days Qty: 60 1RF aspirin 81 mg tablet,delayed release (DR/EC) 81 mg PO DAILY Qty: 90 3RF atorvastatin 40 mg tablet 40 mg PO DAILY 90 Days Qty: 90 3RF benzonatate 100 mg capsule 100 mg PO BID PRN (Reason: cough) 5 Days Qty: 10 0RF lansoprazole 30 mg capsule,delayed release(DR/EC) 30 mg PO DAILY 90 Days Qty: 90 1RF lisinopril 20 mg tablet 20 mg PO DAILY 90 Days Qty: 90 1RF potassium citrate 10 mEq (1,080 mg) tablet extended release 10 meq PO BID 90 Days Qty: 180 1RF Trulicity 3 mg/0.5 mL pen injector 3 mg subcut QWEEK 90 Days Qty: 6.5 1RF chlorhexidine gluconate 0.12 % mouthwash 15 ml buccal DAILY (DME) lancets 28 gauge misc See Rx Instructions topical DAILY Rx Instructions: As directed to test blood sugar three times a day (DME) FreeStyle Lite Strips Strip See Rx Instructions .ROUTE .MEDSUPPLY Qty: 100 11RF Rx Instructions: As directed three times a day (DME) blood-glucose meter [FreeStyle Lite Meter] Kit See Rx Instructions .Route Qty: 1 0RF Rx Instructions: As directed to test blood sugar three times a day Print Language: Djiboutian
[2024-04-26] MEDS: traMADoL HCL 50 MG TABLET PO (08:30)
[2024-04-26] MEDS: Lidocaine 4 % Patch ADH..PATCH 1 PATCH TRANSDERMA (08:30)
[2024-04-26 09:38] VITALS: BP 145/65; PULSE 65; RESP 16; TEMP 37; O2SAT 98
[2024-04-26 09:39] VITALS: BP 145/65; PULSE 65; RESP 16; TEMP 37; O2SAT 98
== END 2024-04-26 09:42 | disposition home or self-care (01) ==
PROVIDERS: Emergency Provider Emergency Medicine; PCP Internal Medicine
DX: M54.41 Lumbago with sciatica, right side (principal)
CPT/HCPCS: 72100; 73502; 99283; 99284

== ENCOUNTER 2024-05-01 10:17 | Outpatient (AMB) | payer MEDICARE, MEDICAID, SELFPAY ==
--- NOTE | 2024-05-01 10:28 | MHC.PC.OV ---
Vital Signs 05/01/24 10:30 Height 5 ft 2 in Weight 153 lb BMI 28.0 BP 138/64 Blood Pressure Location Lt brachial Position Sitting Intake Visit Reasons: dm Intake Note: Patient here for a follow up DM Scanning Manager Required: No Accompanied by: Daughter Allergies No Known Allergies [No Known Allergies*] Allergy (Verified 05/01/24 10:50) Medication List - Last Reconciled 05/01/24 by Anne Marie Fermin MD aspirin 81 mg PO DAILY atorvastatin 40 mg PO DAILY 90 days benzonatate 100 mg PO BID PRN 5 days blood sugar diagnostic (FreeStyle Lite Strips) As directed three times a day blood-glucose meter (FreeStyle Lite Meter kit) As directed to test blood sugar three times a day chlorhexidine gluconate 0.12% 15 mL buccal DAILY dulaglutide (Trulicity) 3 mg (0.5 mL) subcut QWEEK 90 days lancets As directed to test blood sugar three times a day lansoprazole 30 mg PO DAILY 90 days lisinopril 20 mg PO DAILY 90 days meclizine 25 mg PO BID 30 days metformin 1,000 mg PO BID 90 days metoprolol tartrate 50 mg PO BID 90 days potassium citrate ER 10 mEq PO BID 90 days tramadol 50 mg PO Q8H PRN Tobacco use date assessed: 12/10/23 Dental Screening Dental Screen Date: 12/10/23 HPI HPI Comments History of Present Illness Details The patient is a 78-year-old female presenting with chronic pain primarily due to bilateral hip osteoarthritis and suspected sciatica, alongside a follow-up for diabetes management. The sciatica and osteoarthritis pain started approximately one month ago and primarily affects the hip and lower back, with the pain radiating to the leg. The intensity of the pain has increased, necessitating daily use of tramadol. Tramadol is taken two to three times daily for severe pain episodes. Previous imaging (X-rays of the hips and lumbar spine) indicated degenerative disc disease and arthritis in the hips. The patient experiences difficulty with bending and rising due to hip pain, indicating joint dysfunction. Will be referred to pain management and physical therapy. Patient was advised that tramadol is a week opiate and can cause addiction and sedation. It will be refilled. Regarding diabetes management, the patient was initially noted with an A1c level of 7.5% in December, which has been currently reduced to 6.6%. The patient continues to manage diabetes with metformin taken twice daily and Trulicity administered once weekly. The dizziness is intermittent and is managed with meclizine as needed, though she reports out of the medication. She also has hypertension well control with lisinopril and reports no side effects. Blood pressure within goal. Also has hyperlipidemia with an LDL goal of less than 70 and last LDL was 82. Labs will be repeated for the next office visit. Compliant with statin medication. [facility] Medical History (Updated 05/01/24 @ 11:14 by Anne Marie Fermin MD) Chronic fatigue Renal cyst DM2 (diabetes mellitus, type 2) Atrial arrhythmia Renal stones Iron deficiency anemia Essential hypertension Hypovitaminosis D Pure hypercholesterolemia Controlled diabetes mellitus without complication, without long-term current use of insulin Surgical History History of bilateral cataract extraction History of extraction of renal calculus History of total abdominal hysterectomy and bilateral salpingo-oophorectomy Family History Father No problems noted. Mother Diabetes Hypertension Social History Household Members: None Housing: Apartment Alcohol intake: never Patient Tobacco Use Status: Never used Tobacco e-Cigarette/Vaping Use: Never Used Second Hand Smoke Exposure: No service: No Current occupational status: disabled Cognitive needs: No Hearing needs: No Vision needs: Yes Questionnaire Thrive Questionnaire Date Thrive assessed: 12/10/23 NICHOLE-7 AMB Questionnaire NICHOLE-7 Date NICHOLE - 7 assessed: 12/10/23 Source: Developed by Drs. Pardeep Saul, Rae Walker, Rex Schuster and colleagues, with an educational mallory from [employer]. Review of Systems Const All systems reviewed & are unremarkable except as noted in HPI and below Card Denies chest pain at rest, Denies chest pain with activity, Denies edema, Denies irregular heart rhythm, Denies claudication, Denies dyspnea, Denies dyspnea on exertion, Denies orthopnea, Denies paroxysmal nocturnal dyspnea and Denies slow heart rate Resp Denies cough, Denies dyspnea and Denies dyspnea on exertion Denies urinary incontinence, Denies urinary hesitancy and Denies urinary urgency Musc Reports back pain, Denies atrophy, Denies deformity, Denies limited range of motion and Reports radiating pain into limb Skin/Breast Denies bleeding lesions, Denies changing lesions and Denies rash Physical exam (Primary Care) Vital Signs: Last Vital Signs BP 138/64 05/01/24 10:30 BMI result Body Mass Index 28.0 BMI Assessment/Plan discussion: High BMI High, discussed plan: lifestyle, weight reduction, dietary and physical activity Tobacco/Smoking Status: Tobacco use Status Tobacco use date assessed 12/10/23 05/01/24 10:29 Patient Tobacco Use Status Never used Tobacco 05/01/24 10:29 e-Cigarette/Vaping Use Never Used 05/01/24 10:29 Thrive Assessment: Date of Thrive Assessment Date Thrive assessed 12/10/23 05/01/24 10:29 Resp Effort & Inspection: normal respiratory effort Auscultation: clear to auscultation bilaterally Cardio Jugular venous distension: no JVD Rate: regular rate Rhythm: regular rhythm Heart sounds: S1 normal heart sound present and S2 normal heart sound present Back/Spine/Pelvis Thoracic/Lumbar Spine: straight leg raise positive right at 30 degrees Extrem General: Yes full ROM Office Procedures Flu Questionnaire Does the patient have a severe egg allergy?: No Results AMB Hemoglobin A1c AMB Hemoglobin A1c 6.6 % Last Edit by RHONDA Lucio on 05/01/24 10:38 Immunizations Fluarix Triv [id number] (PF) 45 mcg (15 mcg x 3)/0.5 mL IM syringe Performing Provider: Anne Marie Fermin MD [facility] Documented (not given) by: RHONDA Lucio on 05/01/24 10:34 Reason Not Given: Patient Refused Results Reviewed Results Reviewed: Laboratory Last Values Hgb A1c (Clinic) 6.6 % (4.0-6.0) H 05/01/24 10:27 Coding Level of Care Code Est Pt Level 4 (00277) Complex EM visit Add On G2211 Diagnoses Bilateral primary osteoarthritis of hip M16.0 Degeneration of intervertebral disc of lumbar region with discogenic back pain and lower extremity pain M51.362 Disc-related pain type: discogenic back pain and lower extremity pain Type 2 diabetes mellitus without complication, without long-term current use of insulin E11.9 Diabetes mellitus halfway insulin use: without termite control technician use Diabetes mellitus complication status: without complication Pure hypercholesterolemia E78.00 Essential hypertension I10 Dizziness R42 Time Spent (min) 25 Assessment & Plan Assessment & Plan (1) Bilateral primary osteoarthritis of hip: Code(s): M16.0 - Bilateral primary osteoarthritis of hip Category: Medical Plan: Start physical therapy. Referred to pain management. (2) Lumbar degenerative disc disease: Code(s): M51.369 - Other intervertebral disc degeneration, lumbar region without mention of lumbar back pain or lower extremity pain Category: Medical Qualifiers: Disc-related pain type: discogenic back pain and lower extremity pain Qualified Code(s): M51.362 - Other intervertebral disc degeneration, lumbar region with discogenic back pain and lower extremity pain Plan: Start physical therapy. Referred to pain management. (3) DM2 (diabetes mellitus, type 2): Code(s): E11.9 - Type 2 diabetes mellitus without complications Category: Medical Qualifiers: Diabetes mellitus halfway insulin use: without termite control technician use Diabetes mellitus complication status: without complication Qualified Code(s): E11.9 - Type 2 diabetes mellitus without complications Plan: Continue metformin and Trulicity. A1c goal is equal or less than 7%. Do diabetic eye exam yearly. (4) Pure hypercholesterolemia: Code(s): E78.00 - Pure hypercholesterolemia, unspecified Category: Medical Plan: Continue statins. Repeat lipid panel. LDL goal is less than 70. (5) Essential hypertension: Code(s): I10 - Essential (primary) hypertension Category: Medical Plan: Continue lisinopril. Blood pressure goal is equal or less than 130/80. (6) Dizziness: Code(s): R42 - Dizziness and giddiness Category: Medical Plan: Continue meclizine as needed. Plan I discussed with the patient the importance of maintaining her current medication regimen for diabetes, which has resulted in a favorable reduction in her A1c level. We explored management options for her sciatica and osteoarthritis, emphasizing physical therapy and careful use of tramadol for pain control. With regards to dizziness, I advised ensuring meclizine availability to manage symptoms effectively. I emphasized the need for assistive devices to aid mobility, including a walker and a portable toilet, to enhance independence and reduce fall risk. I highlighted the need for follow-up lab assessments within four months to evaluate her diabetes control and monitor any potential side effects from her medication regimen. Orders: Orders Influenza [id number] Immunization Today Z23 - Encounter for immunization PT Evaluation and Treatment Today M16.0 - Bilateral primary osteoarthritis of hip, M51.369 - Other intervertebral disc degeneration, lumbar region without mention of lumbar back pain or lower extremity pain Vitamin D 25-OH Total 4 Months E55.9 - Vitamin D deficiency, unspecified Lipid Panel 4 Months E78.5 - Hyperlipidemia, unspecified Microalbumin, Random (w Creat) 4 Months R80.9 - Proteinuria, unspecified AMB Hemoglobin A1c Today E11.9 - Type 2 diabetes mellitus without complications Comprehensive Alexis. Panel Fast 4 Months I10 - Essential (primary) hypertension Referrals Pain Management Referral M16.0 - Bilateral primary osteoarthritis of hip, M51.369 - Other intervertebral disc degeneration, lumbar region without mention of lumbar back pain or lower extremity pain Medications: New walker As directed 1 ea 0RF M16.0 - Bilateral primary osteoarthritis of hip, M51.369 - Other intervertebral disc degeneration, lumbar region without mention of lumbar back pain or lower extremity pain commode (bedside commode) As directed 1 ea 0RF M16.0 - Bilateral primary osteoarthritis of hip, M51.369 - Other intervertebral disc degeneration, lumbar region without mention of lumbar back pain or lower extremity pain Refilled benzonatate 100 mg PO BID 5 days PRN 10 caps 0RF cough Patient Instructions: - Continue current diabetes medications as directed, monitor blood glucose levels. - Obtain and take meclizine as needed for dizziness. - Use tramadol cautiously for severe pain episodes and be mindful of potential side effects. - Attend scheduled physical therapy sessions for pain management and mobility improvement. - Procure a portable walker and toilet to assist with daily activities. - Schedule follow-up appointment in four months for lab work review. - Maintain current regimen for hypertension and hyperlipidemia.
[2024-05-01 10:30] VITALS: BP 138/64; BMI 28.0
== END 2024-05-01 11:02 | disposition home or self-care (01) ==
PROVIDERS: PCP Internal Medicine; Visit Provider Internal Medicine
DX: M16.0 Bilateral primary osteoarthritis of hip (principal); M51.362 Other intervertebral disc degeneration, lumbar region with discogenic back pain and lower extremity pain; E11.9 Type 2 diabetes mellitus without complications; E78.00 Pure hypercholesterolemia, unspecified; I10 Essential (primary) hypertension; R42 Dizziness and giddiness; Z23 Encounter for immunization

== ENCOUNTER → 2024-05-01 10:17 | Outpatient (BNVA) | payer MEDICARE, MEDICAID, SELFPAY | PROVIDERS: PCP Internal Medicine; Visit Provider Internal Medicine | DX: M16.0 Bilateral primary osteoarthritis of hip (principal); M51.362 Other intervertebral disc degeneration, lumbar region with discogenic back pain and lower extremity pain; E11.9 Type 2 diabetes mellitus without complications; E78.00 Pure hypercholesterolemia, unspecified; I10 Essential (primary) hypertension; R42 Dizziness and giddiness | CPT/HCPCS: 83036; 90471; 99212 ==

== ENCOUNTER 2024-06-13 06:28 | Emergency (ER) | payer MEDICARE, MEDICAID, SELFPAY ==
--- NOTE | ~2024-06-13 | XR_ITS ---
CLINICAL HISTORY: pain 3 view left shoulder Comparison: None Findings: No fractures or dislocations. No significant arthritic change. No erosions. No radiopaque foreign body. IMPRESSION: 1. No acute findings This document has been electronically signed by: Lester Schmitt MD on 06/13/2024 08:08:32
[2024-06-13 06:37] VITALS: BP 140/53; PULSE 66; RESP 16; TEMP 36.3; O2SAT 98; BMI 28.0
[2024-06-13 07:16] VITALS: BP 125/68; PULSE 96; RESP 16; TEMP 36.4; O2SAT 99
--- NOTE | 2024-06-13 07:18 | PC.NURSE ---
Pt comes to ED today with c/o L shoulder pain x3 days. Pt denies any injury or recent strenuous activity. Pain is worse with movements. A&Ox3, VSS, afebrile. Skin is warm and dry Breaths and speech are unlabored. Awaiting Xray Will apply topical patch once xray completed per verbal orders from MD. Will check POC as Pt reports she is DM and did not assess her glucose this am.
[2024-06-13 07:26] LABS: Glucose, Whole Blood 111 mg/dL (60-115)
--- NOTE | 2024-06-13 07:40 | ED.EXTPRO ---
HPI - Extremity Problem General Chief complaint: Extremity Injury, Upper Stated complaint: shoulder pain Time Seen by Provider: 06/13/24 07:06 Source: patient Mode of arrival: ambulatory Limitations: no limitations History of Present Illness ED Provider: USMAN HPI Narrative: 79 yo female with PMH of GERD, HLD, HTN, DM2, here with c/o pain in L upper shoulder worse with movements denies injury or overuse. No numbness, weakness, fevers, rash. No CP/SOB. She has had pains before in past. Woke up with pain. MD Complaint: joint pain Onset (ago): day(s) (3) Pain Consistency: intermittent Location: left and upper extremity Quality: aching Radiation: none Relieving factors: immobilization Exacerbating factors: range of motion and palpation Associated symptoms: denies other symptoms Related Data Home Medications ?Medication ?Instructions ?Recorded ?Confirmed lancets 28 gauge 06/30/21 05/01/24 chlorhexidine gluconate 0.12 % 15 ml buccal DAILY 07/18/22 05/01/24 mouthwash Previous Rx's ?Medication ?Instructions ?Recorded blood sugar diagnostic (FreeStyle #100 ea 06/30/21 Lite Strips) blood-glucose meter (FreeStyle #1 ea 06/30/21 Lite Meter kit) aspirin 81 mg tablet,delayed 81 mg PO DAILY #90 tabs 12/10/23 release atorvastatin 40 mg tablet 40 mg PO DAILY 90 days #90 tabs 12/10/23 metformin 1,000 mg tablet 1,000 mg PO BID 90 days #180 tabs 01/16/24 metoprolol tartrate 50 mg tablet 50 mg PO BID 90 days #180 tabs 01/16/24 benzonatate 100 mg capsule 100 mg PO BID PRN cough 5 days #10 05/01/24 caps commode (bedside commode) #1 ea 05/01/24 meclizine 25 mg tablet 25 mg PO BID 30 days #60 tabs 05/01/24 tramadol 50 mg tablet 50 mg PO Q8H PRN pain 30 days #90 05/01/24 tabs walker #1 ea 05/01/24 dulaglutide 3 mg/0.5 mL 3 mg (0.5 mL) subcut QWEEK 90 days 06/08/24 subcutaneous pen injector #6.5 mL ([facility]) lansoprazole 30 mg capsule,delayed 30 mg PO DAILY 90 days #90 caps 06/08/24 release lisinopril 20 mg tablet 20 mg PO DAILY 90 days #90 tabs 06/08/24 potassium citrate 10 mEq (1,080 10 meq PO BID 90 days #180 tabs 06/08/24 mg) tablet,extended release diclofenac sodium 1 % topical gel 2 g topical QID #100 grams 06/13/24 (Voltaren Arthritis Pain) lidocaine 4 % topical patch 1 patch topical DAILY PRN pain #10 06/13/24 ea Allergies Allergy/AdvReac Type Severity Reaction Status Date / Time No Known Allergies Allergy Verified 06/13/24 06:39 [No Known Allergies*] Review of Systems Review of Systems: Constitutional : No Fever, No Chills ENT/Mouth : No Ear Pain, No Hoarseness, No sore throat Eyes: No Eye Pain, No Swelling, No Redness, No Foreign Body Cardiovascular : No Chest Pain, No SOB Respiratory : No Cough, No Dyspnea Gastrointestinal : No Nausea, No Vomiting, No Diarrhea, No abdominal Pain Genitourinary : No Dysuria, No Hematuria Musculoskeletal : positive joint pain, No Myalgias, No Joint Swelling Skin : No Skin lacerations, No rash Neuro : No Weakness, No Numbness, No Loss of Consciousness, No Dizziness, No Headache All other systems reviewed and are negative [facility] Past Medical History Attestation statement: The following information was validated with the patient. Source: old records reviewed Medical History Chronic fatigue Renal cyst DM2 (diabetes mellitus, type 2) Atrial arrhythmia Renal stones Iron deficiency anemia Essential hypertension Hypovitaminosis D Pure hypercholesterolemia Controlled diabetes mellitus without complication, without long-term current use of insulin Surgical History History of bilateral cataract extraction History of extraction of renal calculus History of total abdominal hysterectomy and bilateral salpingo-oophorectomy Family History Family History Father No problems noted. Mother Diabetes Hypertension Social History Social History Household Members: None Housing: Apartment Alcohol intake: never Patient Tobacco Use Status: Never used Tobacco Smoked in Last 30 Days: No e-Cigarette/Vaping Use: Never Used Second Hand Smoke Exposure: No Use of substances other than those prescribed or required for medical reasons: No Advance Directives: No Advance Directives Information Provided: No Do you have a plan to hurt others: No Plan service: No Current occupational status: disabled Cognitive needs: No Hearing needs: No Vision needs: Yes Physical Exam Vital Signs: Vital Signs: Last Vital Signs Temp 97.6 F 06/13/24 08:58 Pulse 62 06/13/24 08:58 Resp 16 06/13/24 08:58 BP 108/55 L 06/13/24 08:58 Pulse Ox 96 06/13/24 08:58 O2 Del Method Room Air 06/13/24 08:58 BMI result Body Mass Index 28.0 Appearance: Alert. Oriented X3. No acute distress. Eyes: Pupils equal, round and reactive to light. ENT: Pharynx normal. Neck: Normal inspection. Neck supple. CVS: Normal heart rate and rhythm. Pulses normal. Respiratory: No respiratory distress. Breath sounds normal. Abdomen: Soft and nontender. Skin: Skin warm and dry. Normal skin color. Normal skin turgor. Extremities: LUE ttp proximal bicep distal NV intact. hand warm and well perfused no rash, pain with ROM testing Neuro: Oriented X 3. No motor deficit. No sensory deficit. Medications Administered Discontinued Medications Generic Name Dose Route Start Last Admin Trade Name Jimmieq PRN Reason Stop Dose Admin Lidocaine 1 patch 06/13/24 07:12 06/13/24 08:13 Lidocaine 4 % Patch Adh..Patch TRANSDERMA 06/13/24 07:13 1 patch ONCE ONE Administration Protocol Prednisone 40 mg 06/13/24 07:12 06/13/24 08:13 Prednisone 20 Mg Tablet PO 06/13/24 07:13 40 mg ONCE ONE Administration Medical Decision Making Medical Decision Making MDM Narrative: 79 yo female with PMH of GERD, HLD, HTN, DM2, here with c/o L shoulder pain no numbness, weakness, pulses intact - no signs of infection it is all reproduceable will obtain xray suspect tendonitis vs arthritis - PO prednisone x 1 and topical pain control, no chest pain/dyspnea and it is reproduceable doubt ACS Differential Diagnosis Differential Diagnoses: The differential diagnosis associated with the presentation includes tendonitis, arthritis NV intact no signs of infection or swelling Lab Data Labs: Lab Results 06/13/24 Range/Units 07:22 POC Glucose 111 (60-115) mg/dL Independent Interpretation I performed an independent interpretation of an: Plain X-Ray (no fracture) Radiology Impression Discussion of test interpretation with radiology: I have reviewed the radiologist's reading. Independent Historian Clinical information obtained from an independent historian. History obtained from or confirmed by: Other (family ) External Record Review External record reviewed: Outpatient record Prescription Management I considered prescription management with: Other Discharge Plan Discharge Clinical Impression: Left shoulder tendonitis Patient Disposition: Home, Self-Care Instructions: Tendinitis (ED) Additional Instructions: xray negative please continue to take medications as prescribed return for worsening pain, numbness, weakness or any other concerns follow up with primary care doctor if this continues patch stays on for 12 hours then off for 12 hours during the off time can use topical gel for pain Prescriptions: New lidocaine 4 % adhesive patch,medicated 1 patch topical DAILY PRN (Reason: pain) Qty: 10 0RF Rx Instructions: may leave on for up to 12 hrs diclofenac sodium [Voltaren Arthritis Pain] 1 % gel 2 g topical QID Qty: 100 0RF Rx Instructions: apply to single elbow, wrist or hand; for hand includes palm/fingers/back of hand No Action metoprolol tartrate 50 mg tablet 50 mg PO BID 90 Days Qty: 180 1RF metformin 1,000 mg tablet 1,000 mg PO BID 90 Days Qty: 180 1RF lisinopril 20 mg tablet 20 mg PO DAILY 90 Days Qty: 90 1RF lansoprazole 30 mg capsule,delayed release(DR/EC) 30 mg PO DAILY 90 Days Qty: 90 1RF Trulicity 3 mg/0.5 mL pen injector 3 mg subcut QWEEK 90 Days Qty: 6.5 1RF potassium citrate 10 mEq (1,080 mg) tablet extended release 10 meq PO BID 90 Days Qty: 180 1RF aspirin 81 mg tablet,delayed release (DR/EC) 81 mg PO DAILY Qty: 90 3RF atorvastatin 40 mg tablet 40 mg PO DAILY 90 Days Qty: 90 3RF chlorhexidine gluconate 0.12 % mouthwash 15 ml buccal DAILY (DME) lancets 28 gauge misc See Rx Instructions topical DAILY Rx Instructions: As directed to test blood sugar three times a day (DME) FreeStyle Lite Strips Strip See Rx Instructions .ROUTE .MEDSUPPLY Qty: 100 11RF Rx Instructions: As directed three times a day (DME) blood-glucose meter [FreeStyle Lite Meter] Kit See Rx Instructions .Route Qty: 1 0RF Rx Instructions: As directed to test blood sugar three times a day benzonatate 100 mg capsule 100 mg PO BID PRN (Reason: cough) 5 Days Qty: 10 0RF (DME) walker Misc See Rx Instructions .Route Qty: 1 0RF Rx Instructions: As directed (DME) bedside commode Kit See Rx Instructions .Route Qty: 1 0RF Rx Instructions: As directed tramadol 50 mg tablet 50 mg PO Q8H PRN (Reason: pain) 30 Days Qty: 90 0RF meclizine 25 mg tablet 25 mg PO BID 30 Days Qty: 60 1RF Interventions: ED Discharge Assessment Last Done: 06/13/24 08:58 Discharge Date/Time: 06/13/24 08:59 Print Language: Uzbek
[2024-06-13] MEDS: Lidocaine 4 % Patch ADH..PATCH 1 PATCH TRANSDERMA (08:13)
[2024-06-13] MEDS: predniSONE 20 MG TABLET 40 MG PO (08:13)
[2024-06-13 08:58] VITALS: BP 108/55; PULSE 62; RESP 16; TEMP 36.4; O2SAT 96
== END 2024-06-13 08:59 | disposition home or self-care (01) ==
PROVIDERS: Emergency Provider Emergency Medicine; PCP Internal Medicine
DX: M77.8 Other enthesopathies, not elsewhere classified (principal); M25.512 Pain in left shoulder; E11.9 Type 2 diabetes mellitus without complications; I10 Essential (primary) hypertension; E78.00 Pure hypercholesterolemia, unspecified; Z79.82 Long term (current) use of aspirin; Z79.02 Long term (current) use of antithrombotics/antiplatelets; Z79.84 Long term (current) use of oral hypoglycemic drugs; Z79.85 Long-term (current) use of injectable non-insulin antidiabetic drugs; Z79.899 Other long term (current) drug therapy
CPT/HCPCS: 73030; 82947; 99283; 99284

== ENCOUNTER → 2024-06-13 07:40 | Outpatient (BNV) | payer MEDICARE, MEDICAID, SELFPAY | PROVIDERS: Emergency Provider Emergency Medicine; PCP Internal Medicine; Visit Provider Specialist | DX: M25.512 Pain in left shoulder (principal) | CPT/HCPCS: 73030 ==

== ENCOUNTER 2024-06-25 08:23 | Outpatient (RCR) | payer MEDICARE, MEDICAID, SELFPAY ==
[2024-06-09 09:00] VITALS: BP 117/59; PULSE 76
--- NOTE | 2024-06-09 09:54 | MHC.PT.EP ---
[facility] [place] Office [place] [facility] [place] [facility] [address] [place] [address] [phone] F: [phone] F: [phone] F: [phone] F: [phone] Physical Therapy Plan of Care Date of Evaluation: 06/09/24 Date of Surgery: NA Diagnosis: Other intervertebral disc degeneration, lumbar region without mention of lumbar back pain or lower extremity pain B primary OA of hip Lumbar degenerative disc disease, B primary OA of hip Assessment: Caroline is a 79 year old female who is referred to PT for Lumbar degenerative disc disease, B primary OA of hip . She reports of having sudden onset of pain in B hip and back about 2 months back. She denies any trauma or falls. On PT examination she presents with mild TTP over B lumbar paraspinals, 5-6/10 pain in low back and R LE with standing, walking, sitting, decreased lumbar ROM- increased R LE pain noted with flexion, decreased B LE and core strength, altered posture and gait. She lives alone and is independent with all ADLS but has pain with them. She would benefit from skilled PT to address the aforementioned impairments and improve tolerance to functional activities. Frequency and Duration: The patient will be seen 2/week for 5 weeks Short Term Goals: 1. Pt will demonstrate initiation of HEP in 2 weeks. 2. Pt will have 50% decrease in pain in B LE and low back which will enable her to sleep through the night and wake up without pain n 3 weeks. Lead Cashier Goals: 1. Pt will be able to move her trunk through full plane of motion without pain which will enable her to dress her lower body without pain in 4 weeks 2. Pt will demonstrate an increase in muscle strength by 1 grade which will enable her to perform all ADLS without pain in 5 weeks. 3. Pt will be independent with all HEP for symptom management and maintenance following d/c in 5 weeks. Treatment Plan: Modalities to reduce pain, spasms and effusion. Manual therapy to restore motion and function. Therapeutic exercise to improve strength and flexibility. Neuromuscular re-education for posture and balance. Therapeutic activities to return to functional activities of daily living. Electronically signed by: Lauren Amirah, PT DPT Please sign and return to therapist. Thank you for your referral.
--- NOTE | 2024-07-16 08:38 | MHC.PT.DC ---
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 She was independent with all HEP and has achieved all goals set for her. She is therefore being d/c from PT. Electronically signed by: Lauren Macario PT DPT Please sign and return to therapist. Thank you for your referral.
== END 2024-07-16 08:38 | disposition home or self-care (01) ==
LOC: HO.PT 08:23
PROVIDERS: PCP Internal Medicine; Visit Provider Internal Medicine
DX: M51.369 Other intervertebral disc degeneration, lumbar region without mention of lumbar back pain or lower extremity pain (principal); M16.0 Bilateral primary osteoarthritis of hip
CPT/HCPCS: 97110; 97112; 97161

== ENCOUNTER 2024-07-25 09:30 | Outpatient (REF) | payer MEDICARE, MEDICAID, SELFPAY ==
--- NOTE | ~2024-07-25 | US_ITS ---
CLINICAL HISTORY: N20.0 - Calculus of kidney US Renal Comparison: None Findings: Right kidney normal size and echotexture, 10.0 cm length. Left kidney normal size and echotexture, 11.5 cm length. There are bilateral renal parenchymal calculi. IMPRESSION: 1. Bilateral renal parenchymal calculi. No acute findings. This document has been electronically signed by: Lester Schmitt MD on 07/26/2024 08:37:30
--- OUTSIDE RECORDS SUMMARY | 2024-07-25 09:55 | XMS_ITS | Clinical Summary ---
Author Organization [facility] Facility Address [address] [address] Care Team Providers Care Supervisor Metal Furniture Assembly Name Role Phone Anne Marie Nolan MD Primary Care Provider [phone] Allergies No known active allergies Medications Aspirin Adult Low Strength 81 MG EC tablet Take 81 mg by mouth 1 (one) time each day 0 Active atorvastatin (LIPITOR) 40 MG tablet Take 40 mg by mouth 1 (one) time each day 0 Active D3 Super Strength 50 MCG (2000 UT) capsule Take 1 capsule by mouth 1 (one) time each day 0 Active Trulicity 0.75 MG/0.5ML solution pen-injector INJECT SUBCUTANEOUSLY ONCE A WEEK DIRECTED 1 Active metFORMIN (GLUCOPHAGE) 1000 MG tablet Take 1,000 mg by mouth 2 (two) times a day 0 Active metoprolol tartrate (LOPRESSOR) 50 MG tablet Take 50 mg by mouth 2 (two) times a day 0 Active pioglitazone (ACTOS) 15 MG tablet Take 15 mg by mouth 1 (one) time each day 0 Active pravastatin (PRAVACHOL) 80 MG tablet Take 1 tablet by mouth 1 (one) time each day Active Active Problems Problem Noted Date Diagnosed Date Blood in urine 08/12/2020 Chronic kidney disease stage 1 08/12/2020 Essential hypertension 08/12/2020 History of calculus of kidney 08/12/2020 Renal stone 08/12/2020 Type 2 diabetes mellitus without complication Immunizations Name Administration Dates Next Due Pneumococcal Polysaccharide 09/23/2010 Family History Medical History Relation Comments Dementia Mother Diabetes Mother Hypertension Mother Diabetes Sibling 1 Heart disease Sibling 2 Kidney disease Sibling 3 Relation Status Comments Father Mother Sibling 1 Sibling 2 Sibling 3 Social History Tobacco Use Types Packs/Day Years Used Date Smoking Tobacco: Never Smokeless Tobacco: Never Tobacco Cessation:Counseling Given: No Alcohol Use Standard Drinks/Week Comments No 0 (1 standard drink = 0.6 oz pur e alcohol) Comments Unknown Sex and Gender Information Value Date Recorded Sex Assigned at Not on file Legal Sex Female 5:13 PM EST Gender Identity Not on file Sexual Orientation Not on file Last Filed Vital Signs Vital Sign Reading Time Taken Comments Blood Pressure 120/63 10/10/2021 3:07 PM EDT Pulse 84 10/10/2021 3:07 PM EDT Temperature - - Respiratory Rate - - Oxygen Saturation 98% 10/10/2021 3:07 PM EDT Inhaled Oxygen Concentration - - Weight 69.6 kg (153 lb 6.4 oz) 10/10/2021 3:07 P M EDT Height 160 cm (5' 3 ) 07/15/2018 12:00 PM EST Body Mass Index 27.17 07/15/2018 12:00 PM EST Plan of Treatment Health Maintenance Due Date Last Done Comments Pneumococcal Vaccine: 65+ Ye ars (2 of 2 - PCV) 09/24/2011 09/23/2010 Diabetes: Hemoglobin A1C 07/12/2020 01/21/2020 Diabetes: Ophthalmology Exam 07/12/2020 Diabetes: Pedal Pulse Checked 07/12/2020 Diabetes: Sensory Foot Exam 07/12/2020 Diabetes: Visual Foot Exam 07/12/2020 Influenza Vaccine (#1) 2024 Hepatitis B Vaccine Aged Out No longe r eligible based on patient's age to complete this topic Procedures Procedure Name Priority Date/Time Associated Diagnosis Comments HEMOGLOBIN A1C Routine 01/21/2020 12:15 PM EDT from Last 3 Months or Most Recently Relevant to Health Maintenance Results * Hemoglobin A1c (01/21/2020 12:15 PM EDT) Hemoglobin A1C 6.7 % [facility] Comment: ?Hemoglobin A1C Reference Range ? Adults: ??4.8 - 6.0 % ? Non diabetic: ??< 6.0 % ? Goal: ??< 7.0 % Additional Action Suggested: ??> 8.0 % Note: ??Hemoglobin A1c results are invalid for patients ? with abnormal amounts of HbF. ??Blood transfusions ? may impact the HbA1c concentration in the patient ? sample. Estimated Average Glucose 146 MG/DL [place] Comment: eAG = Estimated average glucose which is %A1C expressed as average glucose, using the formula of the [id number]-[id number] Average Glucose study (ADAG), Diabetes Care, Vol.31,#8, Jan. 2007 01/21/2020 12:1 5 PM EDT Anne Marie Rangel NP LAB BLOOD ORDERABLES Final Resul t [place] from Last 3 Months or Most Recently Relevant to Health Maintenance Insurance [place]IC[place] Care Teams Supervisor Metal Furniture Assembly Relationship Specialty Start Date End Date Anne Marie Nolan MD [address] [place], [place] PCP - General 06/21/20
== END 2024-07-25 09:31 | disposition home or self-care (01) ==
LOC: HO.US 09:30
PROVIDERS: PCP Internal Medicine; Visit Provider Nurse Practitioner Family
DX: N20.0 Calculus of kidney (principal); N28.1 Cyst of kidney, acquired
CPT/HCPCS: 76775

== ENCOUNTER → 2024-07-25 09:31 | Outpatient (BNV) | payer MEDICARE, MEDICAID, SELFPAY | PROVIDERS: PCP Internal Medicine; Visit Provider Specialist | DX: N20.0 Calculus of kidney (principal) | CPT/HCPCS: 76775 ==

== ENCOUNTER → 2024-08-11 08:54 | Outpatient (REF) | payer MEDICARE, MEDICAID, SELFPAY ==
--- OUTSIDE RECORDS SUMMARY | 2024-08-11 09:30 | XMS_ITS | Clinical Summary ---
Author Organization [facility] Facility Address [address] [place] [address] Care Team Providers Care Cigar Packing Examiner Name Role Phone Anne Marie Nolan MD Primary Care Provider [phone] Allergies No known active allergies Medications Aspirin [...] ? sample. Estimated Average Glucose 146 MG/DL [place] Comment: eAG = Estimated average glucose which is %A1C expressed as average glucose, using the formula of the F2C-Eayidox Average Glucose study (ADAG), Diabetes Care, Vol.31,#8, Jan. 2007 01/21/2020 12:1 5 PM EDT Anne Marie Rangel NP LAB BLOOD ORDERABLES Final Resul t [place] from Last 3 Months or Most Recently Relevant to Health Maintenance Insurance [place] Care Teams Cigar Packing Examiner Relationship Specialty Start Date End Date Anne Marie Nolan MD [address] [place], [place] PCP - General 06/21/20
== END ==
LOC: HO.CARD 08:54
PROVIDERS: PCP Internal Medicine; Visit Provider Internal Medicine
DX: I49.8 Other specified cardiac arrhythmias (principal)
CPT/HCPCS: 93242

== ENCOUNTER → 2024-08-11 08:58 | Outpatient (BNV) | payer MEDICARE, MEDICAID, SELFPAY | PROVIDERS: PCP Internal Medicine; Visit Provider Internal Medicine Cardiovascular Disease | DX: I49.1 Atrial premature depolarization (principal); I49.3 Ventricular premature depolarization | CPT/HCPCS: 93244 ==

== ENCOUNTER 2024-08-13 08:19 | Outpatient (REF) | payer MEDICARE, MEDICAID, SELFPAY ==
--- OUTSIDE RECORDS SUMMARY | 2024-08-13 14:16 | XMS_ITS | Clinical Summary ---
Author Organization [facility] Facility Address [address] [place] [address] Care Team Providers Care Door Machine Operator Name Role Phone Anne Marie Nolan MD Primary Care Provider [phone] Allergies No known active allergies Medications Aspirin [...] ? sample. Estimated Average Glucose 146 MG/DL [place] Comment: eAG = Estimated average glucose which is %A1C expressed as average glucose, using the formula of the U3E-Oyvgdze Average Glucose study (ADAG), Diabetes Care, Vol.31,#8, Jan. 2007 01/21/2020 12:1 5 PM EDT Anne Marie aRngel NP LAB BLOOD ORDERABLES Final Resul t [place] from Last 3 Months or Most Recently Relevant to Health Maintenance Insurance [place] Care Teams Door Machine Operator Relationship Specialty Start Date End Date Anne Marie Nolan MD [address] [place], [place] PCP - General 06/21/20
[2024-08-13 16:45] LABS: Urine Cytology See Pathology rpt
== END 2024-08-13 08:20 | disposition home or self-care (01) ==
LOC: HO.LNP 08:19
PROVIDERS: PCP Internal Medicine; Visit Provider Nurse Practitioner Family
DX: N20.0 Calculus of kidney (principal); N28.1 Cyst of kidney, acquired
CPT/HCPCS: 81003; 88112; 99212

== ENCOUNTER 2024-08-13 08:19 | Outpatient (AMB) | payer MEDICARE, MEDICAID, SELFPAY ==
--- NOTE | 2024-08-13 08:39 | A.OFFVIS_ITS ---
Intake Visit Reasons: 6m/US(set) Intake Note: Patient presents today for follow up on: bilateral nephrolithiasis and ultrasound results * imaging completed: 07/25/24 Urology Med: None Antibiotic Allergy: None Blood Thinner: Aspirin Layer Up Required: Yes Layer Up Services: Layer Up Offered & Declined Accompanied by: Unknown Allergies No Known Allergies [No Known Allergies*] Allergy (Verified 08/13/24 09:09) Medication List - Last Reconciled 08/13/24 by GLADIS Gotti aspirin 81 mg PO DAILY atorvastatin 40 mg PO DAILY 90 days benzonatate 100 mg PO BID PRN 5 days blood sugar diagnostic (FreeStyle Lite Strips) As directed three times a day blood-glucose meter (FreeStyle Lite Meter kit) As directed to test blood sugar three times a day chlorhexidine gluconate 0.12% 15 mL buccal DAILY commode (bedside commode) As directed diclofenac sodium 1% (Voltaren Arthritis Pain) 2 grams topical QID dulaglutide (Trulicity) 3 mg (0.5 mL) subcut QWEEK 90 days lancets As directed to test blood sugar three times a day lansoprazole 30 mg PO DAILY 90 days lidocaine 4% 1 patch topical DAILY PRN lisinopril 20 mg PO DAILY 90 days meclizine 25 mg PO BID 30 days metformin 1,000 mg PO BID 90 days metoprolol tartrate 50 mg PO BID 90 days potassium citrate ER 10 mEq PO BID 90 days tramadol 50 mg PO Q8H PRN 30 days walker As directed HPI Comments Details: Caroline is a pleasant Polish-speaking female of Dr. Awad who was accompanied by her daughter at today's office visit. She has a past medical history of chronic fatigue, renal cysts, type 2 diabetes, atrial arrhythmia, nephrolithiasis, iron deficiency anemia, hypertension, and hypercholesteremia. She presents to the office today for follow-up of her nephrolithiasis. In discussion with the patient and her daughter today she denies having had any bothersome urinary issues or concerns since her last office visit here. She denies urinary urgency, urinary frequency, incontinence, nocturia, hematuria, dysuria, foul smelling urine, changes to urinary stream, flank pain, fever, and or chills. She is happy with her current voiding parameters. Recent renal imaging results reviewed with the patient today 08/05 bilateral kidneys are normal in size and echotexture. There are bilateral renal parenchymal calculi. No acute findings. She is requesting refill and vitamin B6. When asked she reports to be drinking plenty of water daily. In office urinalysis results reviewed with the patient today. She otherwise offers no other issues or concerns at this time. PREVIOUS OFFICE NOTE: Six month Polish translation provided by qualified medical device engineer Continues with moderate bilateral stones Has background diabetes PH 7.5. On alkalization - KCit 10 meq p.o. b.i.d. Nephrolithiasis Longstanding Multiple prior procedures Concurrent diabetes Imaging - 03/30 renal ultrasound with 2 cm right renal stone, multiple small left renal stones, multiple bilateral cysts - 05/03 renal ultrasound bilateral 5 mm stones - 12/02 renal ultrasound bilateral stones Therapeutic plan - continue lemon water - surveillance imaging [facility] Medical History Chronic fatigue Renal cyst DM2 (diabetes mellitus, type 2) Atrial arrhythmia Renal stones Iron deficiency anemia Essential hypertension Hypovitaminosis D Pure hypercholesterolemia Controlled diabetes mellitus without complication, without long-term current use of insulin Surgical History History of bilateral cataract extraction History of extraction of renal calculus History of total abdominal hysterectomy and bilateral salpingo-oophorectomy Family History Father No problems noted. Mother Diabetes Hypertension Social History Household Members: None Housing: Apartment Alcohol intake: never Patient Tobacco Use Status: Never used Tobacco e-Cigarette/Vaping Use: Never Used Second Hand Smoke Exposure: No service: No Current occupational status: disabled Cognitive needs: No Hearing needs: No Vision needs: Yes Review of Systems Eyes Reports no additional complaints ENT Reports no additional complaints Card Reports as per HPI Resp Reports no additional complaints GI Reports no additional complaints Reports as per HPI Musc Reports no additional complaints Neuro Reports no additional complaints Psych Reports no additional complaints Endo Reports as per HPI Physical Exam Const General: cooperative, healthy appearing, comfortable, no acute distress, well developed, alert and awake Orientation/consciousness: patient oriented x3 Limitations: no limitations HEENT Head: Yes normal to inspection, Yes normocephalic and Yes atraumatic Ears: hearing grossly normal bilaterally Eyes General: appearance normal, both eyes and all related structures Neck Neck: Yes normal visual inspection and Yes trachea midline Chest Chest palpation & inspection: normal inspection of the chest Resp Effort & Inspection: normal respiratory effort and able to speak in complete sentences Cardio Rate: regular rate GI Inspection: Yes normal to inspection General: Yes no CVA tenderness Back/Spine/Pelvis Back: no CVA tenderness Skin General skin exam: no rashes or lesions noted Neuro General: patient oriented x3 Extrem General: Yes normal to inspection Psych Appearance: grossly normal and well kempt Mental Status: mental status grossly normal Speech and movement: Normal speech and movement present and Clear speech present Affect: normal affect Attitude: cooperative Thought process: Normal thought process present Thought content: Normal thought content present Insight: Fair insight present (Psych) Judgement: Fair judgement present (Psych) Results AMB Urinalysis, Automated UA Leukoctes 125 Nakia/uL Last Edit by RubenMEDOPandrew Armstrong on 08/13/24 08:55 UA Nitrite Negative Last Edit by Ruben[employer]ruupMeet Patti on 08/13/24 08:55 UA Urobilinogen 0.2 mg/dL Last Edit by [employer] Patti on 08/13/24 08:55 UA Protein 15 mg/dL Last Edit by [employer] Patti on 08/13/24 08:55 UA pH 6.0 Last Edit by [employer] Patti on 08/13/24 08:55 UA Blood 25 Jake/uL Last Edit by [employer] Patti on 08/13/24 08:55 UA Specific Mason 1.020 Last Edit by [employer] Patti on 08/13/24 08:55 UA Ketone Negative Last Edit by [employer] Patti on 08/13/24 08:55 UA Bilirubin 0 mg/dL Last Edit by Mustbine Patti on 08/13/24 08:55 UA Glucose 0 mg/dL Last Edit by Tono Armstrong on 08/13/24 08:55 Results Reviewed Results Reviewed: Laboratory Last Values Urine pH (Auto) 6.0 08/13/24 08:54 Specific Mason (Auto) 1.020 08/13/24 08:54 Urine Protein (Auto) 15 mg/dL 08/13/24 08:54 Glucose (UA)(Auto) 0 mg/dL 08/13/24 08:54 Urine Ketones (Auto) Negative 08/13/24 08:54 Urine Blood (Auto) 25 Jake/uL 08/13/24 08:54 Urine Nitrite (Auto) Negative 08/13/24 08:54 Urine Bilirubin (Auto) 0 mg/dL 08/13/24 08:54 Urine Urobilinogen (Auto) 0.2 mg/dL 08/13/24 08:54 Leukocyte Esterase (Auto) 125 Nakia/uL 08/13/24 08:54 Date of Service: 07/25/24 US Renal Comparison: None Findings: Right kidney normal size and echotexture, 10.0 cm length. Left kidney normal size and echotexture, 11.5 cm length. There are bilateral renal parenchymal calculi. IMPRESSION: 1. Bilateral renal parenchymal calculi. No acute findings. Assessment & Plan Assessment & Plan (1) Renal cyst: Code(s): N28.1 - Cyst of kidney, acquired Category: Medical (2) Bilateral nephrolithiasis: Code(s): N20.0 - Calculus of kidney Category: Medical Plan In office urinalysis results reviewed with the patient today; as noted above. Recent renal imaging results reviewed with the patient today; as noted above. Patient currently denies any bothersome urinary issues or concerns. She reports be happy with current voiding parameters. Continue vitamin B6, increased hydration, and 1 oz of lemon juice to water daily. Will obtain renal ultrasound in 6 months. Follow-up in 6 months with imaging to be completed prior; or sooner with any issues, concerns, and or questions. Orders: Orders US renal BI 07/25/24 N20.0 - Calculus of kidney, N28.1 - Cyst of kidney, acquired AMB Urinalysis Automated Today Z13.9 - Encounter for screening, unspecified US renal BI 6 Months N20.0 - Calculus of kidney Medications: New pyridoxine (vitamin B6) 50 mg (1/2 x 100 mg) PO DAILY 90 days 45 tabs 2RF N13.2 - Hydronephrosis with renal and ureteral calculous obstruction Patient Instructions: The patient had an opportunity to ask questions regarding the treatment plan. All questions were answered. Physical exam, labs, and imaging were discussed and reviewed in detail. As well as risks, benefits, and discussion of treatment choices. No major barriers to understanding were identified. The patient expressed understanding and agreement with the above treatment plan. The patient was made aware they should contact our office by phone for worsening of their current condition, the appearance of new symptoms, or with any questions or concerns. Compliance is encouraged with any medications and follow up testing that is ordered. It is a privilege to be allowed the opportunity to participate in? your urological care.? Again, if you have any questions or concerns If you have any questions or concerns please do not hesitate to contact me. The office is [phone]. This note is constructed using voice recognition software. While every effort has been made to ensure accuracy spray painting machine operator errors may have been included. Yours sincerely, BETHEL Gotti Coding Level of Care Code Est Pt Level 3 (40290) Complex EM visit Add On G2211 Diagnoses Renal cyst N28.1 Bilateral nephrolithiasis N20.0
--- OUTSIDE RECORDS SUMMARY | 2024-08-13 08:45 | XMS_ITS | Clinical Summary ---
Author Organization [facility] Facility Address [address] [place] [address] Care Team Providers Care Automatic Quilling Machine Operator Name Role Phone Anne Marie Nolan MD Primary Care Provider [phone] Allergies No known active allergies Medications Aspirin [...] ? sample. Estimated Average Glucose 146 MG/DL [place] Comment: eAG = Estimated average glucose which is %A1C expressed as average glucose, using the formula of the W0V-Ubczxoi Average Glucose study (ADAG), Diabetes Care, Vol.31,#8, Jan. 2007 01/21/2020 12:1 5 PM EDT Anne Marie Rangel NP LAB BLOOD ORDERABLES Final Resul t [place] from Last 3 Months or Most Recently Relevant to Health Maintenance Insurance [place]IC[place] Care Teams Automatic Quilling Machine Operator Relationship Specialty Start Date End Date Anne Marie Nolan MD [address] [place], [place] PCP - General 06/21/20
== END 2024-08-13 09:08 | disposition home or self-care (01) ==
PROVIDERS: PCP Internal Medicine; Visit Provider Nurse Practitioner Family
DX: N28.1 Cyst of kidney, acquired (principal); N20.0 Calculus of kidney; Z13.9 Encounter for screening, unspecified
CPT/HCPCS: 99213; G2211

== ENCOUNTER 2024-08-29 07:06 | Outpatient (REF) | payer MEDICARE, MEDICAID, SELFPAY ==
[2024-08-29 07:58] LABS: Urine Cytology See Pathology rpt
[2024-08-29 08:32] LABS: Creatinine Urine 75.08 mg/dL; Microalbum/Creatinine Ratio Ur 21.3 ug/mg cr (<30)
[2024-08-29 08:43] LABS: Alanine Aminotransferase 29 U/L (0-31); Albumin Level 4.3 g/dL (3.5-5.0); Alkaline Phosphatase 73 U/L (39-117); Anion Gap 10 (12-20); Aspartate Amino Transferase 20 U/L (5-31); Bilirubin Total 0.4 mg/dL (0.0-1.0); Blood Urea Nitrogen 16 mg/dL (9-16); Calcium 10.1 mg/dL (8.4-10.2); Carbon Dioxide 29 mmol/L (22-29); Chloride 106 mmol/L (96-108); Cholesterol 137 mg/dL (<200); Estimated Glomerular Filt Rate > 60; Glucose Fasting 149 mg/dL (60-99); HDL Cholesterol 47 mg/dL (>40); LDL Cholesterol Calculated 61 mg/dL (<100); Potassium 5.3 mmol/L (3.3-5.1); Sodium 140 mmol/L (135-145); Total Protein 7.7 g/dL (6.5-8.0); Triglycerides 146 mg/dL (<150)
[2024-08-29 08:49] LABS: Vitamin D 25-OH Total 27.8 ng/mL (>30)
== END 2024-08-29 07:07 | disposition home or self-care (01) ==
LOC: HO.LAB 07:06
PROVIDERS: PCP Internal Medicine; Visit Provider Nurse Practitioner Family
DX: R89.6 Abnormal cytological findings in specimens from other organs, systems and tissues (principal); E55.9 Vitamin D deficiency, unspecified; E78.5 Hyperlipidemia, unspecified; R80.9 Proteinuria, unspecified; I10 Essential (primary) hypertension
CPT/HCPCS: 36415; 80053; 80061; 82043; 82306; 82570; 88112

== ENCOUNTER 2024-09-03 09:38 | Outpatient (REF) | payer MEDICARE, MEDICAID, SELFPAY ==
[2024-09-03 10:47] LABS: Potassium 4.8 mmol/L (3.3-5.1)
== END 2024-09-03 09:39 | disposition home or self-care (01) ==
LOC: HO.10HDL 09:38
PROVIDERS: Visit Provider Internal Medicine
DX: E87.5 Hyperkalemia (principal)
CPT/HCPCS: 36415; 84132

== ENCOUNTER 2024-09-04 10:49 | Outpatient (AMB) | payer MEDICARE, MEDICAID, SELFPAY ==
--- NOTE | 2024-09-04 11:15 | A.OFFPC_ITS ---
Vital Signs 09/04/24 11:17 Height 5 ft 2 in Weight 152 lb BMI 27.8 BP 126/68 Blood Pressure Location Lt brachial Position Sitting Intake Visit Reasons: dm Intake Note: Patient here for a follow up DM Power Transmission Engineer Required: Yes Power Transmission Engineer Language: Remote Sensing Analyst Name: Anne Marie Fermin MD Information Interpreted: non-clinical & clinical Accompanied by: Daughter Allergies No Known Allergies [No Known Allergies*] Allergy (Verified 09/04/24 11:44) Medication List - Last Reconciled 09/04/24 by Anne Marie Fermin MD aspirin 81 mg PO DAILY atorvastatin 40 mg PO DAILY 90 days blood sugar diagnostic (FreeStyle Lite Strips) As directed three times a day blood-glucose meter (FreeStyle Lite Meter kit) As directed to test blood sugar three times a day chlorhexidine gluconate 0.12% 15 mL buccal DAILY commode (bedside commode) As directed diclofenac sodium 1% (Voltaren Arthritis Pain) 2 grams topical QID dulaglutide (Trulicity) 3 mg (0.5 mL) subcut QWEEK 90 days lancets As directed to test blood sugar three times a day lansoprazole 30 mg PO DAILY 90 days lidocaine 4% 1 patch topical DAILY PRN lisinopril 20 mg PO DAILY 90 days meclizine 25 mg PO BID 30 days metformin 1,000 mg PO BID 90 days metoprolol tartrate 50 mg PO BID 90 days potassium citrate ER 10 mEq PO BID 90 days pyridoxine (vitamin B6) 50 mg (1/2 x 100 mg) PO DAILY 90 days tramadol 50 mg PO Q8H PRN 30 days walker As directed Tobacco use date assessed: 09/04/24 Fall risk assessment: No Falls in past year Last assessed Fall Risk: 09/04/24 Dental Screening Dental Screen Date: 09/04/24 Did you have a dental visit in the last 12 months?: Yes Did you have a dental problem in the last 6 months where you did not have access to dental care?: No Was dental information given to patient?: Patient has dentist HPI HPI Comments History of Present Illness Details The patient is a 79-year-old female presenting with gastrointestinal symptoms. She reports intolerances to food characterized by nausea potentially linked to antidiabetic medications Metformin and Trulicity. She seeks gastroenterological evaluation for abdominal pain and requests referrals for colonoscopy and endoscopy. The current treatment regimen seems effective for her chronic conditions, as indicated by controlled diabetes with an HbA1c of 6.9%, managed hypertension with readings of 126/68 mmHg, and resolved hyperkalemia. Furthermore, low Vitamin D levels at 27.9 ng/mL were noted, necessitating supplementation. Other lifestyle factors include abstinence from tobacco and alcohol, and absence of known medication allergies. Has hyperlipidemia with an LDL within goal. [facility] Medical History (Updated 09/04/24 @ 11:52 by Anne Marie Fermin MD) Chronic fatigue Renal cyst DM2 (diabetes mellitus, type 2) Atrial arrhythmia Renal stones Iron deficiency anemia Essential hypertension Hypovitaminosis D Pure hypercholesterolemia Controlled diabetes mellitus without complication, without long-term current use of insulin Surgical History History of bilateral cataract extraction History of extraction of renal calculus History of total abdominal hysterectomy and bilateral salpingo-oophorectomy Family History Father No problems noted. Mother Diabetes Hypertension Social History Household Members: None Housing: Apartment Alcohol intake: never Patient Tobacco Use Status: Never used Tobacco e-Cigarette/Vaping Use: Never Used Second Hand Smoke Exposure: No service: No Current occupational status: disabled Cognitive needs: No Hearing needs: No Vision needs: Yes Questionnaire PHQ-9 Over the last 2 weeks, how often have you been bothered by any of the following problems? 1. Little interest or pleasure in doing things: not at all 2. Feeling down, depressed, or hopeless: not at all 3. Trouble falling or staying asleep, or sleeping too much: not at all 4. Feeling tired or having little energy: not at all 5. Poor appetite or overeating: not at all 6. Feeling bad about yourself - or that you are a failure or have let yourself or your family down: not at all 7. Trouble concentrating on things, such as reading the newspaper or watching television: not at all 8. Moving or speaking so slowly that other people could have noticed. Or the opposite - being so fidgety or restless that you have been moving around a lot more than usual: not at all 9. Thoughts that you would be better off or of hurting yourself in some way: not at all Total score: 0 Depression Screening Interpretation: Negative Depression Screening [place]: [place] 80507 - PHQ-9 Billing: Yes Source: Developed by Drs. Pardeep Saul, Rae Walker, Rex Schuster and colleagues, with an educational mallory from [employer]. Thrive Questionnaire Date Thrive assessed: 09/04/24 I am a: Patient What is your living situation today?: I have a steady place to live Within the past 12 months, did the food you bought not last and you didn't have the money to get more?: Never true Within the past 12 months, did you worry whether your food would run out before you got money to buy more?: Never true Do you have trouble paying for medicines?: No Do you have trouble getting transportation to medical appointments?: No Do you have trouble paying your heating and electricity bill?: No Do you have trouble taking care of your child, family member or friend?: No Do you have trouble with day-to-day activities such as bathing, preparing meals, shopping, managing finances, etc.?: No Are you currently unemployed and looking for a job?: No Are you interested in more education?: No Please select the resources that you would like help with: None Currently or been in a relationship where the following occur: No concerns reported THRIVE Score: 0 AUDIT C Alcohol Use Questionnaire (AUDIT-C) 1. How often do you have a drink containing alcohol?: Never Total Score: 0 NICHOLE-7 AMB Questionnaire NICHOLE-7 Date NICHOLE - 7 assessed: 09/04/24 Feeling nervous, anxious, or on edge: 0 = Not at all Not being able to stop or control worryin = Not at all Worrying too much about different things: 0 = Not at all Trouble relaxin = Not at all Being so restless that it is hard to sit still: 0 = Not at all Becoming easily annoyed or irritable: 0 = Not at all Feeling afraid as if something awful might happen: 0 = Not at all Total NICHOLE-7 score (0-4 normal; 5-9 mild; 10-14 moderate; 15-21 severe): 0 Source: Developed by Drs. Pardeep Saul, Rae Walker, Rex Schuster and colleagues, with an educational mallory from [employer]. Review of Systems Const All systems reviewed & are unremarkable except as noted in HPI and below Card Denies chest pain at rest, Denies chest pain with activity, Denies edema, Denies irregular heart rhythm, Denies claudication, Denies dyspnea, Denies dyspnea on exertion, Denies orthopnea, Denies paroxysmal nocturnal dyspnea and Denies slow heart rate Resp Denies cough, Denies dyspnea and Denies dyspnea on exertion GI Denies abdominal pain, Denies change in bowel habits, Denies excessive flatus, Denies nausea and Denies vomiting Denies urinary incontinence, Denies urinary hesitancy and Denies urinary urgency Musc Denies atrophy, Denies deformity and Denies limited range of motion Skin/Breast Denies bleeding lesions, Denies changing lesions and Denies rash Physical exam (Primary Care) Vital Signs: Last Vital Signs BP 126/68 09/04/24 11:17 BMI result Body Mass Index 27.8 Tobacco/Smoking Status: Tobacco use Status Tobacco use date assessed 09/04/24 09/04/24 11:27 Patient Tobacco Use Status Never used Tobacco 09/04/24 11:19 e-Cigarette/Vaping Use Never Used 09/04/24 11:19 PHQ-9: PHQ-9 Score PHQ-9: Total score 0 09/04/24 11:19 Depression Screening Interpretation: Negative Thrive Assessment: Date of Thrive Assessment Date Thrive assessed 09/04/24 09/04/24 11:19 Currently or been in a relationship where the following occur: No concerns reported Resp Effort & Inspection: normal respiratory effort Auscultation: clear to auscultation bilaterally Cardio Jugular venous distension: no JVD Rate: regular rate Rhythm: regular rhythm Heart sounds: S1 normal heart sound present and S2 normal heart sound present Extrem General: Yes full ROM Results AMB Hemoglobin A1c AMB Hemoglobin A1c 6.9 % Last Edit by RHONDA Lucio on 09/04/24 11:3 0 Results Reviewed Results Reviewed: Laboratory Last Values Hgb A1c (Clinic) 6.9 % (4.0-6.0) H 09/04/24 11:15 Coding Level of Care Code Est Pt Level 4 (50916) Complex EM visit Add On G2211 Diagnoses Type 2 diabetes mellitus without complication, without long-term current use of insulin E11.9 Diabetes mellitus terminal makeup operator insulin use: without terminal makeup operator use Diabetes mellitus complication status: without complication Essential hypertension I10 Hypovitaminosis D E55.9 Pure hypercholesterolemia E78.00 GERD (gastroesophageal reflux disease) K21.9 Additional Codes PHQ-9 - 13044 - PHQ-9 Billing: Yes ([id number]) Time Spent (min) 23 Assessment & Plan Assessment & Plan (1) DM2 (diabetes mellitus, type 2): Code(s): E11.9 - Type 2 diabetes mellitus without complications Category: Medical Qualifiers: Diabetes mellitus terminal makeup operator insulin use: without terminal makeup operator use Diabetes mellitus complication status: without complication Qualified Code(s): E11.9 - Type 2 diabetes mellitus without complications (2) Essential hypertension: Code(s): I10 - Essential (primary) hypertension Category: Medical (3) Hypovitaminosis D: Code(s): E55.9 - Vitamin D deficiency, unspecified Category: Medical (4) Pure hypercholesterolemia: Code(s): E78.00 - Pure hypercholesterolemia, unspecified Category: Medical (5) GERD (gastroesophageal reflux disease): Code(s): K21.9 - Gastro-esophageal reflux disease without esophagitis Category: Medical Plan I will continue the current management regimen for the patient's Type 2 Diabetes Mellitus and refer her to Gastroenterology for evaluation of her gastrointestinal complaints. Potassium supplementation has been discontinued given normalized levels. I will prescribe Vitamin D supplements due to deficiency. Arrangements for mobility assistance and aids such as a walker and raised toilet seat will be made. A follow-up visit and laboratory testing will occur in four months. Patient was informed and verbally consented to the use of an ambient scribe for clinic note documentation during this visit. During our discussion, I detailed the management plan for her Type 2 Diabetes Mellitus and addressed gastrointestinal symptoms by arranging a Gastroenterology referral. Regarding the positive progress in managing her chronic conditions, we discussed the risks and benefits of her current medications, particularly addressing her Vitamin D deficiency with planned supplementation. She was advised on the importance of regular follow-ups to monitor her chronic conditions closely. Orders: Orders AMB Hemoglobin A1c Today E11.9 - Type 2 diabetes mellitus without complications Lipid Panel 4 Months E78.5 - Hyperlipidemia, unspecified Microalbumin, Random (w Creat) 4 Months R80.9 - Proteinuria, unspecified Vitamin D 25-OH Total 4 Months E55.9 - Vitamin D deficiency, unspecified Potassium 6 Weeks E87.5 - Hyperkalemia Comprehensive [place]. 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 - Start Vitamin D supplements as directed. - Seek immediate medical attention if gastrointestinal symptoms worsen. - Attend all scheduled laboratory tests and follow-up appointments. - Arrange an appointment with Gastroenterology for further evaluation. - Use prescribed mobility aids for safety and stability.
[2024-09-04 11:17] VITALS: BP 126/68; BMI 27.8
--- OUTSIDE RECORDS SUMMARY | 2024-09-04 14:23 | XMS_ITS | Clinical Summary ---
Author Organization [facility] Facility Address [address] [place] [address] Care Team Providers Care Delicatessen Department Manager Name Role Phone Anne Marie Nolan MD Primary Care Provider [phone] Allergies No known active allergies Medications Aspirin [...] ? sample. Estimated Average Glucose 146 MG/DL [facility] Comment: eAG = Estimated average glucose which is %A1C expressed as average glucose, using the formula of the F1Y-Pwtneom Average Glucose study (ADAG), Diabetes Care, Vol.31,#8, Jan. 2007 01/21/2020 12:1 5 PM EDT Anne Marie Rangel NP LAB BLOOD ORDERABLES Final Resul t [facility] from Last 3 Months or Most Recently Relevant to Health Maintenance Insurance [place] Care Teams Delicatessen Department Manager Relationship Specialty Start Date End Date Anne Marie Nolan MD [address] [place], [place] PCP - General 06/21/20
== END 2024-09-04 11:52 | disposition home or self-care (01) ==
LOC: HO.HMCH 10:50
PROVIDERS: PCP Internal Medicine; Visit Provider Internal Medicine
DX: E11.9 Type 2 diabetes mellitus without complications (principal); I10 Essential (primary) hypertension; E55.9 Vitamin D deficiency, unspecified; E78.00 Pure hypercholesterolemia, unspecified; K21.9 Gastro-esophageal reflux disease without esophagitis

== ENCOUNTER → 2024-09-04 10:49 | Outpatient (BNVA) | payer MEDICARE, MEDICAID, SELFPAY | PROVIDERS: PCP Internal Medicine; Visit Provider Internal Medicine | DX: E11.9 Type 2 diabetes mellitus without complications (principal); E55.9 Vitamin D deficiency, unspecified; I10 Essential (primary) hypertension; E78.00 Pure hypercholesterolemia, unspecified; K21.9 Gastro-esophageal reflux disease without esophagitis | CPT/HCPCS: 83036; 96127; 99212 ==

== ENCOUNTER 2024-09-18 14:18 | Outpatient (REF) | payer MEDICARE, MEDICAID, SELFPAY ==
--- OUTSIDE RECORDS SUMMARY | 2024-09-18 17:02 | XMS_ITS | Clinical Summary ---
Author Organization [facility] Facility Address [address] [place] [address] Care Team Providers Care Call Center Director Name Role Phone Anne Marie Nolan MD Primary Care Provider [phone] Allergies No known active allergies Medications Aspirin [...] Type 2 diabetes mellitus without complication Immunizations Immunization Administration Dates Next Due Pneumococcal Polysaccharide 09/23/2010 [...] Due Date Last Done Comments Pneumococcal Vaccine: 50+ Ye ars (2 of 2 - PCV) 09/24/2011 09/23/2010 Diabetes: Hemoglobin A1C 07/12/2020 01/21/2020 Diabetes: Ophthalmology Exam 07/12/2020 Diabetes: Pedal Pulse Checked 07/12/2020 Diabetes: Sensory Foot Exam 07/12/2020 Diabetes: Visual Foot Exam 07/12/2020 Influenza Vaccine (Season Ended) 2025 Hepatitis B Vaccine Aged Out No longe [...] ? sample. Estimated Average Glucose 146 MG/DL [place] Comment: eAG = Estimated average glucose which is %A1C expressed as average glucose, using the formula of the E3N-Zkmbyau Average Glucose study (ADAG), Diabetes Care, Vol.31,#8, Jan. 2007 01/21/2020 12:1 5 PM EDT Anne Marie Rangel NP LAB BLOOD ORDERABLES Final Resul t [place] from Last 3 Months or Most Recently Relevant to Health Maintenance Insurance Medicare Medicaid [place] Medicare Medicaid [place] Care Teams Call Center Director Relationship Specialty Start Date End Date Anne Marie Nolan MD [address] [place], [place] PCP - General 06/21/20
== END 2024-09-18 14:19 | disposition home or self-care (01) ==
LOC: HO.MAMMO 14:18
PROVIDERS: PCP Internal Medicine; Visit Provider Internal Medicine
DX: Z12.31 Encounter for screening mammogram for malignant neoplasm of breast (principal)
CPT/HCPCS: 77063; 77067

== ENCOUNTER → 2024-09-18 14:45 | Outpatient (BNV) | payer MEDICARE, MEDICAID, SELFPAY | PROVIDERS: PCP Internal Medicine; Visit Provider Internal Medicine | DX: Z12.31 Encounter for screening mammogram for malignant neoplasm of breast (principal) | CPT/HCPCS: 77063; 77067 ==

== ENCOUNTER 2024-10-09 13:13 | Outpatient (AMB) | payer MEDICARE, MEDICAID, SELFPAY ==
--- NOTE | 2024-10-09 13:21 | A.OFFVIS_ITS ---
Vital Signs 10/09/24 13:24 Height 5 ft 2 in Weight 159 lb 2.78 oz BMI 29.1 BP 130/60 Blood Pressure Location Lt brachial Position Sitting Pulse 77 Pulse Source Monitor Intake Visit Reasons: r/s 08/28/24 1 yr followup w/ekg Loan Servicing Specialist Required: No Loan Servicing Specialist Services: Loan Servicing Specialist Offered & Declined Loan Servicing Specialist Name: martin/daughter/lebanese Accompanied by: Daughter Allergies No Known Allergies [No Known Allergies*] Allergy (Verified 09/04/24 11:44) Medication List - Last Reconciled 10/09/24 by Burt Payan MD aspirin 81 mg PO DAILY atorvastatin 40 mg PO DAILY 90 days blood sugar diagnostic (FreeStyle Lite Strips) As directed three times a day blood-glucose meter (FreeStyle Lite Meter kit) As directed to test blood sugar three times a day chlorhexidine gluconate 0.12% 15 mL buccal DAILY cholecalciferol (vitamin D3) 25 mcg PO DAILY 90 days commode (bedside commode) As directed diclofenac sodium 1% (Voltaren Arthritis Pain) 2 grams topical QID dulaglutide (Trulicity) 3 mg (0.5 mL) subcut QWEEK 90 days lancets As directed to test blood sugar three times a day lansoprazole 30 mg PO DAILY 90 days lidocaine 4% 1 patch topical DAILY PRN lisinopril 20 mg PO DAILY 90 days meclizine 25 mg PO BID 30 days metformin 1,000 mg PO BID 90 days metoprolol tartrate 50 mg PO BID 90 days pyridoxine (vitamin B6) 50 mg (1/2 x 100 mg) PO DAILY 90 days [raised toilet seat As directed] tramadol 50 mg PO Q8H PRN 30 days walker As directed HPI Comments Details: Caroline returns for follow-up. In the past, she has had palpitations suspected to be from atrial arrhythmias. She states she feels fine. No cardiac complaints whatsoever. No angina. Nonspecific fatigue. [facility] Medical History Chronic fatigue Renal cyst DM2 (diabetes mellitus, type 2) Atrial arrhythmia Renal stones Iron deficiency anemia Essential hypertension Hypovitaminosis D Pure hypercholesterolemia Controlled diabetes mellitus without complication, without long-term current use of insulin Surgical History History of bilateral cataract extraction History of extraction of renal calculus History of total abdominal hysterectomy and bilateral salpingo-oophorectomy Family History Father No problems noted. Mother Diabetes Hypertension Social History Household Members: None Housing: Apartment Alcohol intake: never Patient Tobacco Use Status: Never used Tobacco e-Cigarette/Vaping Use: Never Used Second Hand Smoke Exposure: No service: No Current occupational status: disabled Cognitive needs: No Hearing needs: No Vision needs: Yes Review of Systems Const Denies chills, Denies fatigue, Denies fever(s), Denies frequent falls, Denies weakness, Denies weight gain and Denies weight loss ENT Denies dizziness Card Denies chest pain, Denies leg edema, Denies lightheadedness, Denies palpitations, Denies dyspnea and Denies dyspnea on exertion Resp Denies cough, Denies dyspnea and Denies dyspnea on exertion GI Denies hematochezia Musc Denies abnormal gait, Denies muscle weakness, Denies numbness, Denies radiating pain into limb and Denies tingling Neuro Denies abnormal gait, Denies dizziness, Denies frequent falls, Denies numbness, Denies tingling and Denies weakness Endo Denies fatigue and Denies palpitations Physical Exam Vital Signs: Last Vital Signs Pulse 77 10/09/24 13:24 BP 130/60 10/09/24 13:24 BMI result Body Mass Index 29.1 Const General: comfortable and no acute distress Orientation/consciousness: patient oriented x3 HEENT Other: Unremarkable Head: Yes normal to inspection Neck Neck: Yes normal visual inspection Chest Chest palpation & inspection: normal inspection of the chest Resp Auscultation: clear to auscultation bilaterally Cardio Palpation: normal PMI Heart sounds: S1 normal heart sound present, S2 normal heart sound present, no gallops, no murmurs and no rubs GI Palpation (GI): Soft to palpation Back/Spine/Pelvis Other: unremarkable Skin General skin exam: no rashes or lesions noted Neuro General: patient oriented x3 Extrem General: Yes normal to inspection Psych Mental Status: mental status grossly normal Office Procedures EKG Details: EKG with sinus, 77/min, LAFB. [id number]-[id number], Complete Assessment & Plan Assessment & Plan (1) Atrial arrhythmia: Code(s): I49.8 - Other specified cardiac arrhythmias Category: Medical Plan: In the past, Holter/COLIN had shown very brief tachycardic episodes thought to be atrial tachycardia. Less likely to be flutter. In a prior EKG not clear if it is truly junctional or sinus where the P-waves are not too obvious. Then underwent Holter shows underlying sinus rhythm at an average rate of 82/Min. Rare supraventricular ectopy. In the most recent Holter, underlying rhythm sinus with occasional PACs/PVCs. Stable on beta-blockers. No changes. (2) LAFB (left anterior fascicular block): Code(s): I44.4 - Left anterior fascicular block Category: Medical Plan: Chronic finding. Echocardiogram with preserved LVEF, 60-65%, mild diastolic dysfunction. (3) Essential hypertension: Code(s): I10 - Essential (primary) hypertension Category: Medical Plan: On Lisinopril. Stable. (4) Controlled diabetes mellitus without complication, without long-term current use of insulin: Code(s): E11.9 - Type 2 diabetes mellitus without complications Category: Medical Qualifiers: Diabetes mellitus type: type 2 Qualified Code(s): E11.9 - Type 2 diabetes mellitus without complications Plan: Last hemoglobin A1c 6.9%. On Trulicity, metformin. (5) Family history of coronary artery disease in brother: Code(s): Z82.49 - Family history of ischemic heart disease and other diseases of the circulatory system Plan: Strong family history of coronary disease, ischemic cardiomyopathy, ICD in brother who from the same. Myocardial perfusion imaging study from 2020 did not show any ischemic findings. LDL level remains well controlled. Clinically she does not have any angina or concerning symptoms. Plan Discussion Notes During our discussion, I reviewed the patient's heart monitor results and EKG, confirming their stability and lack of new abnormalities. I have addressed her reports of fatigue, noting the absence of related cardiac symptoms. We agreed to leave the current management strategy unchanged and discussed scheduling a follow-up appointment in one year, although the patient may contact us if she experiences any new symptoms or concerns prior to this timeframe. No procedures or new treatments were deemed necessary at this stage. Patient was informed and verbally consented to the use of an ambient scribe for clinic note documentation during this visit. Patient Instructions: - Continue regular activities as tolerated. - Monitor for any new or worsening symptoms such as chest pain or severe fatigue. - Schedule a follow-up appointment in one year or sooner if issues arise. - Contact immediately if experiencing new cardiac symptoms or concerns. Coding Level of Care Code Est Pt Level 4 (50793) Diagnoses Atrial arrhythmia I49.8 LAFB (left anterior fascicular block) I44.4 Essential hypertension I10 Controlled type 2 diabetes mellitus without complication, without long-term current use of insulin E11.9 Diabetes mellitus type: type 2 Family history of coronary artery disease in brother Z82.49 CPT Codes EKG - CPT: [id number], Complete ([id number])
[2024-10-09 13:24] VITALS: BP 130/60; PULSE 77; BMI 29.1
--- OUTSIDE RECORDS SUMMARY | 2024-10-09 15:40 | XMS_ITS | Clinical Summary ---
Author Organization [facility] Facility Address [address] [place] [address] Care Team Providers Care Rehab Technician Name Role Phone Anne Marie Nolan MD Primary Care Provider [phone] Allergies No known active allergies Medications Aspirin [...] Exam 07/12/2020 Influenza Vaccine (Season Ended) 2025 Pneumococcal Vaccine: Peds ( 0 to 5 Years) and At-Risk Patients (6 to 49 Years) Discontinued 09/23/2010 Hepatitis B Vaccine Aged Out No longe [...] ? sample. Estimated Average Glucose 146 MG/DL [facility] Comment: eAG = Estimated average glucose which is %A1C expressed as average glucose, using the formula of the G5H-Utjduga Average Glucose study (ADAG), Diabetes Care, Vol.31,#8, Jan. 2007 01/21/2020 12:1 5 PM EDT us Anne Marie Rangel NP LAB BLOOD ORDERABLES Final Resul t Performing Organization Address City/State/[facility] Co de Phone Number [facility] from Last 3 Months or Most Recently Relevant to Health Maintenance Insurance Medicare Medicaid [place] Care Teams Rehab Technician Relationship Specialty Start Date End Date Anne Marie Nolan MD [address] [place], [place] PCP - General 06/21/20
== END 2024-10-09 13:39 | disposition home or self-care (01) ==
LOC: HO.HCS 13:14
PROVIDERS: PCP Internal Medicine; Visit Provider Internal Medicine
DX: I49.8 Other specified cardiac arrhythmias (principal); I44.4 Left anterior fascicular block; I10 Essential (primary) hypertension; E11.9 Type 2 diabetes mellitus without complications; Z82.49 Family history of ischemic heart disease and other diseases of the circulatory system
CPT/HCPCS: 93010; 99214

== ENCOUNTER → 2024-10-09 13:13 | Outpatient (BNVA) | payer MEDICARE, MEDICAID, SELFPAY | PROVIDERS: PCP Internal Medicine; Visit Provider Internal Medicine | DX: I49.8 Other specified cardiac arrhythmias (principal); I44.4 Left anterior fascicular block; I10 Essential (primary) hypertension; E11.9 Type 2 diabetes mellitus without complications; Z82.49 Family history of ischemic heart disease and other diseases of the circulatory system | CPT/HCPCS: 93005; 99212 ==

== ENCOUNTER 2024-11-15 07:38 | Emergency (ER) | payer MEDICARE, MEDICAID, SELFPAY ==
--- NOTE | ~2024-11-15 | US_ITS ---
CLINICAL HISTORY: pain and swelling Venous duplex ultrasound right lower extremity Comparison: None Findings: The visualized deep veins are fully compressible with normal Doppler color flow and spectral tracings. No popliteal cyst. IMPRESSION: 1. Negative for right lower extremity deep vein thrombosis. This document has been electronically signed by: Madni Roldan MD on 11/15/2024 14:54:51
[2024-11-15 07:41] VITALS: BP 130/46; PULSE 68; RESP 18; TEMP 36.5; O2SAT 100; BMI 28.6
[2024-11-15 08:16] LABS: MANUAL DIFF FLAG NO
[2024-11-15 08:21] LABS: Basophils Absolute Auto 0.1 X10*3/uL (0.0-0.2); Eosinophils Absolute Auto 0.3 X10*3/uL (0.0-0.4); Eosinophils Percent Auto 3.3 % (0-4); Hematocrit 38.3 % (37.0-47.0); Imm Gran Abs Auto 0.03 X10*3/uL (0.00-0.03); Imm Gran Pct Auto 0.4 % (0.0-0.4); Lymphocytes Absolute Auto 2.3 X10*3/uL (1.2-4.9); Lymphocytes Percent Auto 28.3 % (20-40); Mean Corpuscular HGB Conc 31.3 g/dl (31.0-35.0); Mean Corpuscular Volume 73.5 fL (80.0-98.0); Mean Platelet Volume 11.5 fL (9.4-12.3); Monocytes Absolute Auto 0.6 X10*3/uL (0.1-1.2); Monocytes Percent Auto 7.4 % (2-11); Neutrophils Absolute Auto 4.8 x10*3/uL (2.0-8.3); Neutrophils Percent Auto 59.6 % (45-73); Platelet Count 303 X10*3/uL (160-400); Red Blood Count 5.21 X10*6/uL (4.20-5.50); White Blood Count 8.1 X10*3/uL (4.8-10.8)
[2024-11-15 08:41] LABS: Alanine Aminotransferase 22 U/L (0-31); Albumin Level 4.2 g/dL (3.5-5.0); Alkaline Phosphatase 64 U/L (39-117); Anion Gap 13 (12-20); Aspartate Amino Transferase 21 U/L (5-31); Bilirubin Total 0.5 mg/dL (0.0-1.0); Blood Urea Nitrogen 21 mg/dL (9-16); Calcium 9.6 mg/dL (8.4-10.2); Carbon Dioxide 29 mmol/L (22-29); Chloride 103 mmol/L (96-108); Creatinine Clr Calc Pharmacy 45.7; Estimated Glomerular Filt Rate 59; Glucose Random 167 mg/dL (60-115); Potassium 4.2 mmol/L (3.3-5.1); Sodium 141 mmol/L (135-145); Total Protein 6.9 g/dL (6.5-8.0)
[2024-11-15 08:47] LABS: B Type Natriuretic Peptide 68 pg/mL (<100)
[2024-11-15 10:00] VITALS: BP 149/66; PULSE 69; RESP 14; TEMP 36.9; O2SAT 96
--- NOTE | 2024-11-15 10:07 | ED_ITS ---
HPI - General Adult General Chief complaint: Extremity Injury, Lower Stated complaint: r hip pain Time Seen by Provider: 11/15/24 09:44 Source: patient, RN notes reviewed, old records reviewed and director of convention services Mode of arrival: ambulatory Limitations: language barrier History of Present Illness ED Provider: Tevin HPI narrative: Patient is a 79-year-old female with history of T2 DM, HTN, chronic fatigue, GERD, lumbar degenerative disc disease, osteoarthritis of hip presenting to the emergency department with complaint of right hip pain radiating down right leg for the past 3 weeks. Has taken [id number] medications as well as tramadol prescribed by PCP with little relief. Reports history of similar pain in the past, has been seen here for this. Denies recent fall or other trauma. Also complains of swelling to bilateral lower extremities. MD complaint: right hip pain Onset (ago): week(s) Related Data Home Medications ?Medication ?Instructions ?Recorded ?Confirmed lancets 28 gauge 06/30/21 10/09/24 chlorhexidine gluconate 0.12 % 15 ml buccal DAILY 07/18/22 10/09/24 mouthwash Previous Rx's ?Medication ?Instructions ?Recorded blood sugar diagnostic (FreeStyle #100 ea 06/30/21 Lite Strips) blood-glucose meter (FreeStyle #1 ea 06/30/21 Lite Meter kit) aspirin 81 mg tablet,delayed 81 mg PO DAILY #90 tabs 12/10/23 release atorvastatin 40 mg tablet 40 mg PO DAILY 90 days #90 tabs 12/10/23 metformin 1,000 mg tablet 1,000 mg PO BID 90 days #180 tabs 01/16/24 metoprolol tartrate 50 mg tablet 50 mg PO BID 90 days #180 tabs 01/16/24 commode (bedside commode) #1 ea 05/01/24 meclizine 25 mg tablet 25 mg PO BID 30 days #60 tabs 05/01/24 tramadol 50 mg tablet 50 mg PO Q8H PRN pain 30 days #90 05/01/24 tabs dulaglutide 3 mg/0.5 mL 3 mg (0.5 mL) subcut QWEEK 90 days 06/08/24 subcutaneous pen injector #6.5 mL (Trulicity) lansoprazole 30 mg capsule,delayed 30 mg PO DAILY 90 days #90 caps 06/08/24 release lisinopril 20 mg tablet 20 mg PO DAILY 90 days #90 tabs 06/08/24 diclofenac sodium 1 % topical gel 2 g topical QID #100 grams 06/13/24 (Voltaren Arthritis Pain) lidocaine 4 % topical patch 1 patch topical DAILY PRN pain #10 06/13/24 ea pyridoxine (vitamin B6) 100 mg 50 mg (1/2 x 100 mg) PO DAILY 90 08/13/24 tablet days #45 tabs cholecalciferol (vitamin D3) 25 25 mcg PO DAILY 90 days #90 caps 09/04/24 mcg (1,000 unit) capsule raised toilet seat #1 ea 09/04/24 walker #1 ea 09/04/24 lidocaine 5 % topical patch 1 patch topical DAILY #15 ea 11/15/24 prednisone 20 mg tablet 20 mg PO DAILY #5 tabs 11/15/24 Allergies Allergy/AdvReac Type Severity Reaction Status Date / Time No Known Allergies Allergy Verified 11/15/24 07:42 [No Known Allergies*] Review of Systems 2 Review of Systems: As per HPI Yes all other systems are reviewed and are negative Constitutional: Constitutional: Reports as per HPI [facility] Past Medical History Medical History Chronic fatigue Renal cyst DM2 (diabetes mellitus, type 2) Atrial arrhythmia Renal stones Iron deficiency anemia Essential hypertension Hypovitaminosis D Pure hypercholesterolemia Controlled diabetes mellitus without complication, without long-term current use of insulin Surgical History History of bilateral cataract extraction History of extraction of renal calculus History of total abdominal hysterectomy and bilateral salpingo-oophorectomy Family History Family History Father No problems noted. Mother Diabetes Hypertension Social History Social History Household Members: None Housing: Apartment Alcohol intake: never Patient Tobacco Use Status: Never used Tobacco Smoked in Last 30 Days: Yes e-Cigarette/Vaping Use: Never Used Second Hand Smoke Exposure: No Use of substances other than those prescribed or required for medical reasons: No Advance Directives: No Advance Directives Information Provided: No service: No Current occupational status: disabled Cognitive needs: No Hearing needs: No Vision needs: Yes Physical Exam ED Vital Signs: Vital Signs - 24 hr 11/15/24 07:41 11/15/24 10:00 11/15/24 12:00 Temperature 97.7 F 98.4 F 98.4 F Pulse Rate 68 69 62 Respiratory Rate 18 14 15 Blood Pressure 130/46 L 149/66 H 118/46 L Pulse Oximetry 100 96 97 Oxygen Delivery Method Room Air Room Air Room Air 11/15/24 13:27 11/15/24 15:04 Temperature 98.5 F 98.2 F Pulse Rate 70 66 Respiratory Rate 12 13 Blood Pressure 115/41 L 133/60 Pulse Oximetry 99 99 Oxygen Delivery Method Room Air Room Air BMI result Body Mass Index 28.6 Vital signs have been reviewed and appear to be correct. Blood pressure normal. Heart rate normal. Respiratory rate normal. Temperature normal. Oxygen saturation normal. Const General: cooperative, healthy appearing and no acute distress Orientation/consciousness: oriented to person, oriented to place, oriented to time and patient oriented x3 Limitations: no limitations HENMT Head: Yes normocephalic and Yes atraumatic Ears: external ears normal General nose exam: Normal external nose present Face and sinus: Yes face symmetric Mouth: oropharynx normal and moist mucous membranes Throat: Yes uvula midline Eyes Pupils: Equal, round and reactive pupils present Neck Neck: Yes normal visual inspection and Yes supple Resp Effort & Inspection: normal respiratory effort and able to speak in complete sentences Auscultation: clear to auscultation bilaterally Cardio Rate: regular rate Rhythm: regular rhythm Heart sounds: S1 normal heart sound present and S2 normal heart sound present GI Palpation (GI): Soft to palpation and nontender Auscultation: normoactive bowel sounds General: Yes no CVA tenderness Back/Spine/Pelvis Back: no CVA tenderness Thoracic/Lumbar Spine: thoracic and lumbar spine normal to inspection, thoraco- lumbar ROM normal, straight leg raise negative bilaterally, pain with thoraco- lumbar ROM, No thoracic spinal tenderness and No lumbar spinal tenderness Pelvis: no pain with anterior-posterior compression and no pain with lateral compression Skin General skin exam: elasticity normal and turgor normal Neuro General: oriented to person, oriented to place, oriented to time, patient oriented x3, gait normal, tone normal, moves all extremities, Normal light touch and pain sensation, no focal motor deficits, CN's II-XI intact bilaterally and deep tendon reflexes 2+ bilaterally Cranial nerves: Yes Equal, round and reactive pupils present Cognition (Neuro): normal cognition Motor exam (neuro): 5/5 motor strength present throughout, Normal motor muscle tone present throughout and Motor abnormalities not present Extrem General: Yes full ROM, Yes no calf tenderness and Yes edema (bilateral 1+ pitting edema to lower extremities) Right lower extremity: foot Details: vascular exam Details: dorsalis pedis pulse present, posterior tibial pulse present and normal capillary refill Left lower extremity: foot Details: vascular exam Details: dorsalis pedis pulse present, posterior tibial pulse present and normal capillary refill Psych Mental Status: mental status grossly normal Affect: normal affect Thought process: Normal thought process present Medications Administered Discontinued Medications Generic Name Dose Route Start Last Admin Trade Name Freq PRN Reason Stop Dose Admin Ketorolac Tromethamine 30 mg 11/15/24 10:41 11/15/24 10:57 Ketorolac Tromethamine 30 Mg/Ml Vial IM 11/15/24 10:42 30 mg ONCE ONE Administration Prednisone 40 mg 11/15/24 10:41 11/15/24 10:57 Prednisone 20 Mg Tablet PO 11/15/24 10:42 40 mg ONCE ONE Administration Medical Decision Making Medical Decision Making MDM Narrative: Patient is a 79-year-old female with history of T2 DM, HTN, chronic fatigue, GERD, lumbar degenerative disc disease, osteoarthritis of hip presenting to the emergency department with complaint of right hip pain radiating down right leg for the past 3 weeks. On exam patient is awake, A+Ox3, VS WNL, afebrile, normal neurological exam without focal deficits, physical exam findings as above. Given reported symptoms and physical exam findings, initial differential includes but is not limited to initial differential includes DVT, lumbar strain, lumbar radiculopathy, osteoarthritis, degenerative disc disease, disc herniation, spinal stenosis, spondylosis. Less likely vertebral fracture. Do not suspect malignancy/mass, SEA, cauda equina/cord compression. No DVT evident upon my review of ultrasound. Significant delay in radiologist interpretation, contacted [facility] and was advised exam would be pushed through as STAT read. My interpretation is in agreement with radiologist's interpretation. Will send prescriptions for prednisone and lidocaine patches. Advised follow up with PCP. Return precautions discussed at bedside. Patient verbalized understanding of and agreement with plan. In-person technician trainee was utilized for all interactions, assessments, and discussions. Differential Diagnosis Differential Diagnoses: The differential diagnosis associated with the presentation includes As per [facility] Admission/Observation Consideration of admission/observation: Escalation of care including admission/observation considered Patient would have been admitted to the hospital had their work up had any findings where hospital admission was appropriate and their clinical presentation warranted hospital admission. Lab Data [facility] Lab Attestation statement: I reviewed the patient's lab results. as per [facility] 11/15/24 08:13 11/15/24 08:13 Labs: Lab Results 11/15/24 Range/Units 08:13 WBC 8.1 (4.8-10.8) X10*3/uL RBC 5.21 (4.20-5.50) X10*6/uL Hgb 12.0 (12.0-16.0) g/dl Hct 38.3 (37.0-47.0) % MCV 73.5 L (80.0-98.0) fL MCH 23.0 L (27.0-33.0) pg MCHC 31.3 (31.0-35.0) g/dl RDW 15.0 (11.0-16.0) % Plt Count 303 (160-400) X10*3/uL MPV 11.5 (9.4-12.3) fL Immature Gran % (Auto) 0.4 (0.0-0.4) % Neut % (Auto) 59.6 (45-73) % Lymph % (Auto) 28.3 (20-40) % [place] % (Auto) 7.4 (2-11) % Eos % (Auto) 3.3 (0-4) % Baso % (Auto) 1.0 (0-2) % Lymph # (Auto) 2.3 (1.2-4.9) X10*3/uL [place] # (Auto) 0.6 (0.1-1.2) X10*3/uL Eos # (Auto) 0.3 (0.0-0.4) X10*3/uL Baso # (Auto) 0.1 (0.0-0.2) X10*3/uL Abs Immat Gran (auto) 0.03 (0.00-0.03) X10*3/uL Absolute Neuts (auto) 4.8 (2.0-8.3) x10*3/uL Absolute Nucleated RBC 0.000 (0.0-0.012) X10*3/uL Nucleated RBC % (auto) 0.0 (0.0-0.2) /100WBC Sodium 141 (135-145) mmol/L Potassium 4.2 (3.3-5.1) mmol/L Chloride 103 (96-108) mmol/L Carbon Dioxide 29 (22-29) mmol/L Anion Gap 13 (12-20) BUN 21 H (9-16) mg/dL Creatinine 0.92 (0.5-1.4) mg/dL Estim Creat Clear Calc 45.7 Estimated GFR 59 Random Glucose 167 H (60-115) mg/dL Calcium 9.6 (8.4-10.2) mg/dL Total Bilirubin 0.5 (0.0-1.0) mg/dL AST 21 (5-31) U/L ALT 22 (0-31) U/L Alkaline Phosphatase 64 (39-117) U/L B-Natriuretic Peptide 68 (<100) pg/mL Total Protein 6.9 (6.5-8.0) g/dL Albumin 4.2 (3.5-5.0) g/dL Independent Interpretation I performed an independent interpretation of an: Ultrasound Interpretation: No evidence of DVT right lower extremity Radiology Impression Discussion of test interpretation with radiology: I have reviewed the radiologist's reading. Radiologist Impression: CLINICAL HISTORY: pain and swelling Venous duplex ultrasound right lower extremity Comparison: None Findings: The visualized deep veins are fully compressible with normal Doppler color flow and spectral tracings. No popliteal cyst. IMPRESSION: 1. Negative for right lower extremity deep vein thrombosis. This document has been electronically signed by: Mandi Roldan MD on 11/15/2024 14:54:51 External Record Review External record reviewed: Inpatient record, Office record and Outpatient record Prescription Management I considered prescription management with: Pain Medication and Other Discharge Plan Discharge Clinical Impression: Lumbar radiculopathy Patient Disposition: Home, Self-Care Instructions: Lumbar Radiculopathy (ED) Additional Instructions: You were evaluated in the emergency department today for back pain. Your evaluation did not show signs of medical conditions requiring emergent intervention at this time. We recommended that you use ibuprofen or Tylenol per package directions every 6 hours as needed for pain. If necessary, you can alternate these medications so that you take one medication every 3 hours. For instance, at noon take ibuprofen, then at 3:00 p.m. take Tylenol, then at 6:00 p.m. take ibuprofen. You have been prescribed a course of prednisone which is a steroid to decrease inflammation. Be aware that this medication can elevate your blood glucose levels. You have been prescribed 5% topical lidocaine patches which you can wear for up to 12 hours in a 24 hour period. Do not apply heat directly over the patches. Please schedule an appointment for follow-up with your primary care physician this week for further evaluation of your symptoms. Return to the emergency department if you experience worsening back pain, difficulty walking, fevers, numbness, tingling, incontinence, groin numbness or tingling, or any other concerning symptoms. Prescriptions: New prednisone 20 mg tablet 20 mg PO DAILY Qty: 5 0RF lidocaine 5 % adhesive patch,medicated 1 patch topical DAILY Qty: 15 0RF Rx Instructions: leave on most painful area for up to 12 hrs No Action metoprolol tartrate 50 mg tablet 50 mg PO BID 90 Days Qty: 180 1RF metformin 1,000 mg tablet 1,000 mg PO BID 90 Days Qty: 180 1RF lisinopril 20 mg tablet 20 mg PO DAILY 90 Days Qty: 90 1RF lansoprazole 30 mg capsule,delayed release(DR/EC) 30 mg PO DAILY 90 Days Qty: 90 1RF Trulicity 3 mg/0.5 mL pen injector 3 mg subcut QWEEK 90 Days Qty: 6.5 1RF lidocaine 4 % adhesive patch,medicated 1 patch topical DAILY PRN (Reason: pain) Qty: 10 0RF Rx Instructions: may leave on for up to 12 hrs diclofenac sodium [Voltaren Arthritis Pain] 1 % gel 2 g topical QID Qty: 100 0RF Rx Instructions: apply to single elbow, wrist or hand; for hand includes palm/fingers/back of hand aspirin 81 mg tablet,delayed release (DR/EC) 81 mg PO DAILY Qty: 90 3RF atorvastatin 40 mg tablet 40 mg PO DAILY 90 Days Qty: 90 3RF chlorhexidine gluconate 0.12 % mouthwash 15 ml buccal DAILY (DME) lancets 28 gauge misc See Rx Instructions topical DAILY Rx Instructions: As directed to test blood sugar three times a day (DME) FreeStyle Lite Strips Strip See Rx Instructions .ROUTE .MEDSUPPLY Qty: 100 11RF Rx Instructions: As directed three times a day (DME) blood-glucose meter [FreeStyle Lite Meter] Kit See Rx Instructions .Route Qty: 1 0RF Rx Instructions: As directed to test blood sugar three times a day (DME) bedside commode Kit See Rx Instructions .Route Qty: 1 0RF Rx Instructions: As directed tramadol 50 mg tablet 50 mg PO Q8H PRN (Reason: pain) 30 Days Qty: 90 0RF meclizine 25 mg tablet 25 mg PO BID 30 Days Qty: 60 1RF cholecalciferol (vitamin D3) 25 mcg (1,000 unit) capsule 25 mcg PO DAILY 90 Days Qty: 90 1RF (DME) walker Misc See Rx Instructions .Route Qty: 1 0RF Rx Instructions: As directed (DME) raised toilet seat See Rx Instructions .Route .MEDSUPPLY Qty: 1 0RF Rx Instructions: As directed pyridoxine (vitamin B6) 100 mg tablet 50 mg PO DAILY 90 Days Qty: 45 2RF Print Language: [place]ian
[2024-11-15] MEDS: predniSONE 20 MG TABLET 40 MG PO (10:57)
[2024-11-15] MEDS: Ketorolac Tromethamine 30 MG/ML VIAL IM (10:57)
--- NOTE | 2024-11-15 11:05 | PC.NURSE ---
[place] speaking. Patient presents to ED c/o right hip pain rated 10/10 radiating down right leg. Pain started 3 weeks ago, pain comes and goes. +CMS +ROM. Denies injury. Denies SOB. Patient medicated for pain, effectiveness pending. VSS and up to date. Plan of care on going.
[2024-11-15 12:00] VITALS: BP 118/46; PULSE 62; RESP 15; TEMP 36.9; O2SAT 97
[2024-11-15 13:27] VITALS: BP 115/41; PULSE 70; RESP 12; TEMP 36.9; O2SAT 99
[2024-11-15 15:04] VITALS: BP 133/60; PULSE 66; RESP 13; TEMP 36.8; O2SAT 99
[2024-11-15 15:16] VITALS: BP 133/60; PULSE 66; RESP 13; TEMP 36.8; O2SAT 99
== END 2024-11-15 15:17 | disposition home or self-care (01) ==
PROVIDERS: Emergency Provider Emergency Medicine; PCP Internal Medicine
DX: M54.16 Radiculopathy, lumbar region (principal); M79.604 Pain in right leg; M25.551 Pain in right hip; M79.89 Other specified soft tissue disorders; E11.9 Type 2 diabetes mellitus without complications; I10 Essential (primary) hypertension
CPT/HCPCS: 36415; 80053; 83880; 85025; 93971; 96372; 99284; J1885

== ENCOUNTER → 2024-11-15 09:45 | Outpatient (BNV) | payer MEDICARE, MEDICAID, SELFPAY | PROVIDERS: Emergency Provider Emergency Medicine; PCP Internal Medicine; Visit Provider Nuclear Medicine | DX: R22.41 Localized swelling, mass and lump, right lower limb (principal) | CPT/HCPCS: 93971 ==

== ENCOUNTER 2024-11-22 07:59 | Emergency (ER) | payer MEDICARE, MEDICAID, SELFPAY ==
--- NOTE | ~2024-11-22 | XR_ITS ---
CLINICAL HISTORY: pain, no trauma 3 view, pelvis and right hip Comparison: None Findings: The bones are intact. [id number] degenerative narrowing of the superomedial aspects of the hip joints bilaterally. The soft tissues are unremarkable. IMPRESSION: No acute findings. This document has been electronically signed by: Evonne Agee MD on 11/22/2024 09:14:06
[2024-11-22 08:02] VITALS: BP 142/60; PULSE 71; RESP 16; TEMP 36.1; O2SAT 98; BMI 28.5
[2024-11-22 08:26] VITALS: BP 128/61; PULSE 65; RESP 13; TEMP 36.8; O2SAT 100
--- NOTE | 2024-11-22 08:45 | ED_ITS ---
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 Patient reports several visits for the same. She has had improvement in the past with tramadol and physical therapy. She does have a follow up appointment with her primary care doctor in December. She was seen here on November 15 for similar symptoms and had a negative venous ultrasound. She was sent home with prednisone for 5 days and a prescription for a medicated patch. She did complete the prednisone but her patches not covered by insurance. She has not tried any [id number] medications. She reports pain begins in the right hip and radiates down the right leg. There was no associated numbness or tingling. No numbness in the groin. No bowel or bladder incontinence. No fevers or chills. Patient is ambulatory with a walker. Related Data Home Medications ?Medication ?Instructions ?Recorded ?Confirmed lancets 28 gauge 06/30/21 10/09/24 chlorhexidine gluconate 0.12 % 15 ml buccal DAILY 07/18/22 10/09/24 mouthwash Previous Rx's ?Medication ?Instructions ?Recorded blood sugar diagnostic (FreeStyle #100 ea 06/30/21 Lite Strips) blood-glucose meter (FreeStyle #1 ea 06/30/21 Lite Meter kit) aspirin 81 mg tablet,delayed 81 mg PO DAILY #90 tabs 12/10/23 release atorvastatin 40 mg tablet 40 mg PO DAILY 90 days #90 tabs 12/10/23 metformin 1,000 mg tablet 1,000 mg PO BID 90 days #180 tabs 01/16/24 metoprolol tartrate 50 mg tablet 50 mg PO BID 90 days #180 tabs 01/16/24 commode (bedside commode) #1 ea 05/01/24 meclizine 25 mg tablet 25 mg PO BID 30 days #60 tabs 05/01/24 tramadol 50 mg tablet 50 mg PO Q8H PRN pain 30 days #90 05/01/24 tabs dulaglutide 3 mg/0.5 mL 3 mg (0.5 mL) subcut QWEEK 90 days 06/08/24 subcutaneous pen injector #6.5 mL (Trulicity) lansoprazole 30 mg capsule,delayed 30 mg PO DAILY 90 days #90 caps 06/08/24 release lisinopril 20 mg tablet 20 mg PO DAILY 90 days #90 tabs 06/08/24 diclofenac sodium 1 % topical gel 2 g topical QID #100 grams 06/13/24 (Voltaren Arthritis Pain) lidocaine 4 % topical patch 1 patch topical DAILY PRN pain #10 06/13/24 ea pyridoxine (vitamin B6) 100 mg 50 mg (1/2 x 100 mg) PO DAILY 90 08/13/24 tablet days #45 tabs cholecalciferol (vitamin D3) 25 25 mcg PO DAILY 90 days #90 caps 09/04/24 mcg (1,000 unit) capsule raised toilet seat #1 ea 09/04/24 walker #1 ea 09/04/24 lidocaine 5 % topical patch 1 patch topical DAILY #15 ea 11/15/24 prednisone 20 mg tablet 20 mg PO DAILY #5 tabs 11/15/24 acetaminophen 325 mg tablet 650 mg (2 x 325 mg) PO Q4H PRN 11/22/24 (Tylenol) pain #60 tabs tramadol 50 mg tablet 50 mg PO BID PRN pain #14 tabs 11/22/24 Allergies Allergy/AdvReac Type Severity Reaction Status Date / Time No Known Allergies Allergy Verified 11/22/24 08:03 [No Known Allergies*] Review of Systems Review of Systems: Yes all other systems are reviewed and are negative Constitutional: Constitutional: Reports no additional constitutional complaints, Denies body ache(s), Denies chills, Denies fever(s), Denies headache(s) and Denies weakness Eyes: Eyes: Reports no additional eye complaints and Denies change in vision ENT: Reports system reviewed and no additional complaints, except as documented, Denies dizziness, Denies headache(s), Denies nasal congestion, Denies nasal discharge and Denies neck pain Cardiovascular: Cardiovascular: Reports no additional cardiovascular complaints, Denies chest pain, Denies leg edema and Denies dyspnea Respiratory: Respiratory: Reports no additional respiratory complaints, Denies cough and Denies dyspnea Gastrointestinal: Gastrointestinal: Reports no additional gastrointestinal complaints, Denies abdominal pain, Denies diarrhea, Denies nausea and Denies vomiting Genitourinary: Genitourinary: Reports no additional female genitourinary complaints and Denies urinary incontinence Musculoskeletal: Musculoskeletal: Reports no additional musculoskeletal complaints, Reports back pain, Denies arthralgias, Denies joint swelling, Denies neck pain, Denies numbness, Reports radiating pain into limb and Denies tingling Integumentary/Breasts: Skin/Breast: Reports system reviewed and no additional complaints, except as docu and Denies rash Neurologic: Reports system reviewed and no additional complaints, except as documented, Denies Abnormal speech present, Denies dizziness, Denies headache(s), Denies numbness, Denies tingling and Denies weakness PMFSH Past Medical History Attestation statement: The following information was validated with the patient. Source: old records reviewed and nursing notes reviewed Medical History Chronic fatigue Renal cyst DM2 (diabetes mellitus, type 2) Atrial arrhythmia Renal stones Iron deficiency anemia Essential hypertension Hypovitaminosis D Pure hypercholesterolemia Controlled diabetes mellitus without complication, without long-term current use of insulin Surgical History History of bilateral cataract extraction History of extraction of renal calculus History of total abdominal hysterectomy and bilateral salpingo-oophorectomy Family History Family History Father No problems noted. Mother Diabetes Hypertension Social History Social History Household Members: None Housing: Apartment Alcohol intake: never Patient Tobacco Use Status: Never used Tobacco e-Cigarette/Vaping Use: Never Used Second Hand Smoke Exposure: No Advance Directives: No Advance Directives Information Provided: Yes service: No Current occupational status: disabled Cognitive needs: No Hearing needs: No Vision needs: Yes Physical Exam Vital Signs: Vital Signs: Last Vital Signs Temp 98.2 F 11/22/24 08:26 Pulse 65 11/22/24 08:26 Resp 13 11/22/24 08:26 BP 128/61 11/22/24 08:26 Pulse Ox 100 11/22/24 08:26 O2 Del Method Room Air 11/22/24 08:26 BMI result Body Mass Index 28.5 Const: General: cooperative, healthy appearing, comfortable and no acute d istress Orientation/consciousness: patient oriented x3 Limitations: no limitations HEENT: Head: Yes normal to inspection Ears: hearing grossly normal bilaterally General nose exam: Normal external nose present Face and sinu s: Yes normal facial exam Mouth: Normal oral and palatal mucosa present Throat: Yes posterior oropharynx normal Eyes: General: appearance normal, both eyes and all related structures Pupils: Equal, round and reactive pupils present Neck: Neck: Yes normal visual inspection Chest: Chest palpation & inspection: normal inspection of the chest Resp: Effort & Inspection: normal respiratory effort Auscultation: clear to auscultation bilaterally Cardio: Rate: regular rate Rhythm: regular rhythm Peripheral pulses: Peripheral pulses 2+ throughout GI: Inspection: Yes normal to inspection Palpation (GI): Soft to palpation and nontender Auscultation: normal bowel sounds Back/Spine/Pelvis: Thoracic/Lumbar Spine: thoracic and lumbar spine normal to inspection Skin: General skin exam: no rashes or lesions noted Neuro: General: patient oriented x3, moves all extremities, no focal motor deficits and normal sensation to monofilament Cranial nerves: Yes Equal, round and reactive pupils present Cognition (Neuro): normal cognition Speech: No Abnormal speech present Gait exam (Neuro): Normal gait present Motor exam (neuro): 5/5 motor strength present throughout Sensory Exam: Normal double simultaneous stimulation for sensation Deep tendon reflexes (DTR's): Right patellar reflex intensity grade: 2+ and Left patellar reflex intensity grade: 2+ Extrem: Other: pain on palpation to the right posterior and lateral hip. Pain is worsened with a right straight leg raise. CMS intact distally of the right lower extremity no calf tenderness or calf swelling no midline lumbar tenderness, step-offs or deformities General: Yes normal to inspection Course Course Course Narrative: x-ray show arthritis but no other acute bony abnormality. Pain is improved with tramadol. Exam is consistent with lumbar radiculopathy. Physical therapy may be beneficial and so I recommend the patient follow up with her primary care doctor as scheduled in December. She has reported improvement with tramadol in the past and so I will give her a brief supply of tramadol and recommend she continue [id number] medications in addition to this. I did review worrisome signs and symptoms of when to return to the emergency room. Comfortable plan for discharge home. Medications Administered Discontinued Medications Generic Name Dose Route Start Last Admin Trade Name Munira PRN Reason Stop Dose Admin Tramadol HCl 50 mg 11/22/24 08:40 11/22/24 08:50 Tramadol Hcl 50 Mg Tablet PO 11/22/24 08:41 50 mg ONCE ONE Administration Medical Decision Making Medical Decision Making MDM Narrative: 79-year-old female with a history of diabetes, hypertension, hyperlipidemia, arthritis presents to the ER with complaints of chronic right hip pain with radiation to the right leg for 1 year. Patient reports several visits for the same. She has had improvement in the past with tramadol and physical therapy. She does have a follow up appointment with her primary care doctor in December. She was seen here on November 15 for similar symptoms and had a negative venous ultrasound. She was sent home with prednisone for 5 days and a prescription for a medicated patch. She did complete the prednisone but her patches not covered by insurance. She has not tried any [id number] medications. She reports pain begins in the right hip and radiates down the right leg. There was no associated numbness or tingling. No numbness in the groin. No bowel or bladder incontinence. No fevers or chills. Patient is ambulatory with a walker. pain on palpation to the right posterior and lateral hip. Pain is worsened with a right straight leg raise. CMS intact distally of the right lower extremity no calf tenderness or calf swelling no midline lumbar tenderness, step-offs or deformities no neurological deficits or red flag symptoms will obtain imaging and provide analgesia Differential Diagnosis Differential Diagnoses: The differential diagnosis associated with the presentation includes Lumbar radiculopathy, lumbar strain, herniated disc Low suspicion for epidural abscess with no risk factors of same, no neurological deficits or red flag symptoms Low suspicion for ACS with no reports of chest pain, shortness of breath, diaphoresis or vomiting Low suspicion for pyelonephritis or renal colic with no CVA tenderness, urinary symptoms reported Low suspicion for malignancy with no red flag symptoms, more acute onset Low suspicion for cord compression, cauda equina with normal neurological exam and no red flag symptoms low suspicion for fracture with no reports of fall consider osteoarthritis, sciatica, lumbar radiculopathy low suspicion for septic joint with full range of motion, no reports of fevers Admission/Observation Consideration of admission/observation: Escalation of care including admission/observation considered No neurological deficits or red flag symptoms to suggest need for emergent MRI, neurosurgery evaluation and or transfer to tertiary care center Independent Interpretation I performed an independent interpretation of an: Plain X-Ray Interpretation: I independently viewed the x-ray and agree with the radiology report Radiology Impression Discussion of test interpretation with radiology: I have reviewed the radiologist's reading. Radiologist Impression: [address] [address] XRay Report Signed Patient: Caroline Becerril MR#: [id number] : 1945 Acct:[id number] Age/Sex: 79 / F ADM Date: 11/22/24 Loc: HO.ED Attending Dr: Ordering Physician: Alejandrina De La Rosa NP Date of Service: 11/22/24 Procedure(s): XR hip RT w PEL1V Accession Number(s): [id number] cc: Alejandrina De La Rosa NP; Anne Marie Nolan MD~ CLINICAL HISTORY: pain, no trauma 3 view, pelvis and right hip Comparison: None Findings: The bones are intact. [id number] degenerative narrowing of the superomedial aspects of the hip joints bilaterally. The soft tissues are unremarkable. IMPRESSION: No acute findings. Independent Historian Clinical information obtained from an independent historian. History obtained from or confirmed by: Other (daughter) Tests considered The following testing was considered but not selected: no neurological deficits or red flag symptoms to suggest need for emergent MRI, Prescription Management I considered prescription management with: Pain Medication Chronic Conditions Patient?s care impacted by: Diabetes Discharge Plan Discharge Clinical Impression: Chronic lumbar radiculopathy Patient Disposition: Home, Self-Care Instructions: Lumbar Radiculopathy (ED), Lower Back Exercises (ED) Additional Instructions: Please follow-up with your PCP for a referral to physical therapy Gentle stretching Heat or ice to the area Prescriptions: New acetaminophen [Tylenol] 325 mg tablet 650 mg PO Q4H PRN (Reason: pain) Qty: 60 0RF tramadol 50 mg tablet 50 mg PO BID PRN (Reason: pain) Qty: 14 0RF No Action metoprolol tartrate 50 mg tablet 50 mg PO BID 90 Days Qty: 180 1RF metformin 1,000 mg tablet 1,000 mg PO BID 90 Days Qty: 180 1RF lisinopril 20 mg tablet 20 mg PO DAILY 90 Days Qty: 90 1RF lansoprazole 30 mg capsule,delayed release(DR/EC) 30 mg PO DAILY 90 Days Qty: 90 1RF Trulicity 3 mg/0.5 mL pen injector 3 mg subcut QWEEK 90 Days Qty: 6.5 1RF prednisone 20 mg tablet 20 mg PO DAILY Qty: 5 0RF lidocaine 5 % adhesive patch,medicated 1 patch topical DAILY Qty: 15 0RF Rx Instructions: leave on most painful area for up to 12 hrs lidocaine 4 % adhesive patch,medicated 1 patch topical DAILY PRN (Reason: pain) Qty: 10 0RF Rx Instructions: may leave on for up to 12 hrs diclofenac sodium [Voltaren Arthritis Pain] 1 % gel 2 g topical QID Qty: 100 0RF Rx Instructions: apply to single elbow, wrist or hand; for hand includes palm/fingers/back of hand aspirin 81 mg tablet,delayed release (DR/EC) 81 mg PO DAILY Qty: 90 3RF atorvastatin 40 mg tablet 40 mg PO DAILY 90 Days Qty: 90 3RF chlorhexidine gluconate 0.12 % mouthwash 15 ml buccal DAILY (DME) lancets 28 gauge misc See Rx Instructions topical DAILY Rx Instructions: As directed to test blood sugar three times a day (DME) FreeStyle Lite Strips Strip See Rx Instructions .ROUTE .MEDSUPPLY Qty: 100 11RF Rx Instructions: As directed three times a day (DME) blood-glucose meter [FreeStyle Lite Meter] Kit See Rx Instructions .Route Qty: 1 0RF Rx Instructions: As directed to test blood sugar three times a day (DME) bedside commode Kit See Rx Instructions .Route Qty: 1 0RF Rx Instructions: As directed tramadol 50 mg tablet 50 mg PO Q8H PRN (Reason: pain) 30 Days Qty: 90 0RF meclizine 25 mg tablet 25 mg PO BID 30 Days Qty: 60 1RF cholecalciferol (vitamin D3) 25 mcg (1,000 unit) capsule 25 mcg PO DAILY 90 Days Qty: 90 1RF (DME) walker Misc See Rx Instructions .Route Qty: 1 0RF Rx Instructions: As directed (DME) raised toilet seat See Rx Instructions .Route .MEDSUPPLY Qty: 1 0RF Rx Instructions: As directed pyridoxine (vitamin B6) 100 mg tablet 50 mg PO DAILY 90 Days Qty: 45 2RF Referrals: Anne Marie Nolan MD [Primary Care Provider] - Print Language: Yi
[2024-11-22] MEDS: traMADoL HCL 50 MG TABLET PO (08:50)
--- NOTE | 2024-11-22 09:00 | PC.NURSE ---
pt medicated per order
[2024-11-22 10:00] VITALS: BP 124/60; PULSE 88; RESP 14; TEMP 36.7; O2SAT 99
[2024-11-22 10:11] VITALS: BP 122/63; PULSE 68; RESP 16; TEMP 36.7; O2SAT 99
== END 2024-11-22 10:13 | disposition home or self-care (01) ==
PROVIDERS: Emergency Provider Emergency Medicine; PCP Internal Medicine
DX: M54.16 Radiculopathy, lumbar region (principal); M25.551 Pain in right hip; E11.9 Type 2 diabetes mellitus without complications; I10 Essential (primary) hypertension; E78.00 Pure hypercholesterolemia, unspecified; Z79.84 Long term (current) use of oral hypoglycemic drugs; Z79.02 Long term (current) use of antithrombotics/antiplatelets; Z79.82 Long term (current) use of aspirin; Z79.899 Other long term (current) drug therapy
CPT/HCPCS: 73502; 99283

== ENCOUNTER 2024-12-17 09:00 | Outpatient (AMB) | payer MEDICARE, MEDICAID, SELFPAY ==
--- NOTE | 2024-12-17 09:08 | AM.OFFVISMDC ---
Intake Vital Signs 12/17/24 09:10 Height 5 ft 2 in Weight 155 lb BMI 28.3 BP 120/64 Blood Pressure Location Lt brachial Position Sitting Intake Visit Reasons: AWV Intake Note: Patient here for an annual wellness visit Polisher Eyeglass Frames Required: No Accompanied by: Daughter Allergies No Known Allergies (No Known Allergies*) Allergy (Verified 12/17/24 09:41) Medication List - Last Reconciled 12/17/24 by Anne Marie Fermin MD acetaminophen (Tylenol) 650 mg (2 x 325 mg) PO Q4H PRN aspirin 81 mg PO DAILY atorvastatin 40 mg PO DAILY 90 days blood sugar diagnostic (FreeStyle Lite Strips) As directed three times a day blood-glucose meter (FreeStyle Lite Meter kit) As directed to test blood sugar three times a day chlorhexidine gluconate 0.12% 15 mL buccal DAILY cholecalciferol (vitamin D3) 25 mcg PO DAILY 90 days commode (bedside commode) As directed diclofenac sodium 1% (Voltaren Arthritis Pain) 2 grams topical QID dulaglutide (Trulicity) 3 mg (0.5 mL) subcut QWEEK 90 days lancets As directed to test blood sugar three times a day lansoprazole 30 mg PO DAILY 90 days lidocaine 4% 1 patch topical DAILY PRN lidocaine 5% 1 patch topical DAILY lisinopril 20 mg PO DAILY 90 days meclizine 25 mg PO BID 30 days metformin 1,000 mg PO BID 90 days metoprolol tartrate 50 mg PO BID 90 days pyridoxine (vitamin B6) 50 mg (1/2 x 100 mg) PO DAILY 90 days [raised toilet seat As directed] tramadol 50 mg PO Q8H PRN 30 days walker As directed HPI HPI Comments History of Present Illness Details This is a 79-year-old female that comes for her Medicare wellness exam. Vaccines up-to-date. No need for colonoscopy due to age. Mammogram done this year and was normal. She has diabetes mellitus type 2 and A1c is elevated therefore I will add Jardiance. She complains of low back pain radiating to the right leg associated with right sciatica mildly relieved with tramadol. She has difficulty moving out of bed and will benefit from having a hospital bed. She wants a Rheumatology referral. [facility] handed to patient. [place] of care reviewed and updated. She follows with Urology and Cardiology. [facility] Medical History (Updated 12/17/24 @ 10:05 by Anne Marie Fermin MD) Chronic fatigue Renal cyst DM2 (diabetes mellitus, type 2) Atrial arrhythmia Renal stones Iron deficiency anemia Essential hypertension Hypovitaminosis D Pure hypercholesterolemia Controlled diabetes mellitus without complication, without long-term current use of insulin Surgical History History of bilateral cataract extraction History of extraction of renal calculus History of total abdominal hysterectomy and bilateral salpingo-oophorectomy Family History Father No problems noted. Mother Diabetes Hypertension Social History Household Members: None Housing: Apartment Alcohol intake: never Patient Tobacco Use Status: Never used Tobacco e-Cigarette/Vaping Use: Never Used Second Hand Smoke Exposure: No service: No Current occupational status: disabled Cognitive needs: No Hearing needs: No Vision needs: Yes Questionnaire Medicare Wellness Checkup What [age] What gender do you identify with?: female During the past 4 weeks, how much have you been bothered by emotional problems such as feeling anxious, depressed, irritable, sad or downhearted, and blue?: quite a bit During the past 4 weeks, has your physical & emotional health limited your social activities with family, friends, neighbors, or groups?: extremely During the past 4 weeks, how much bodily pain have you generally had?: severe pain During the past 4 weeks, was someone available to help you if you needed & wanted help?: yes, quite a bit During the past 4 weeks, what was the hardest physical activity you could do for at least 2 minutes?: very light Can you get to places out of walking distance without help? (For eg., can you travel alone on buses, taxis or drive your car?): No Can you go shopping for groceries or clothes without someone's help?: No Can you prepare your own meals?: No Can you do your housework without help?: No Because of any health problems, do you need the help of another person with your personal care needs such as eating, bathing, dressing or getting around the house?: Yes Can you handle your own money without help?: No During the past 4 weeks, how would you rate your health in general?: fair During the past 4 weeks how have things been going for you?: pretty bad Are you having difficulties driving your car?: not applicable, I don't use a car Do you always fasten your seat belt when you are in a car?: yes, usually During past 4 weeks, have you been bothered by the following: never: Falling or dizzy when standing up, Sexual problems?, Teeth or denture problems? and Problems using the telephone? and sometimes: Trouble eating well? and Tiredness or fatigue? Have you fallen 2 or more times in the past year?: No Are you afraid of falling?: Yes Are you a smoker?: no During the past 4 weeks, how many drinks of wine, beer, or other alcoholic beverages did you have?: no alcohol at all Do you exercise for about 20 minutes 3 or more times a week?: no, I usually do not exercise this much Have you been given information to help with the following?: no: Hazards in your house that might hurt you? and no: Keeping track of your medications? How often do you have trouble taking medicines the way you have been told to take them?: I always take medicine as prescribed How confident are you that you can control & manage most of your health problems?: somewhat confident What is your race?: or origin or descent Mini Mental State Exam (MMSE) Orientation What is the (year) (season) (date) (day) (month)?: year, season, date, day and month Where are we (state) (county) (town or city) (hospital) (floor)?: state, county, town or city, hospital/clinic and floor Registration Name of 3 unrelated objects clearly and slowly, then ask patient to repeat all 3 of them. (1st repeat determines score. Make sure they can repeat all three): object 1, object 2 and object 3 Attention & Calculation (CHOOSE ONE) Spell WORLD backwards (DLROW): 5 letters Recall Ask patient to repeat the 3 items from question #3.: object 1 and object 2 Language Show patient a wristwatch & ask what it is. Repeat for pencil.: watch and pencil Ask the patient to repeat the phrase 'No ifs, ands, or buts' after you.: correct Ask the patient to 'take a piece of paper with their right hand' 'fold paper in half' 'place paper on floor': take paper in right hand, fold paper in half and place paper on floor Print the sentence 'CLOSE YOUR EYES' on a piece. If patient actually closes eyes then score.: followed written direction Give patient a blank piece of paper & ask to write a sentence. Score if it contains a noun & verb.: sentence contains subject and verb Score Score: 28 Activity of Daily Living Bathing - sponge bath, tub bath or shower: receives help in bathing only one body part (such as back or leg) Dressing - getting clothes from closets & drawers, including inner/outer garments & fasteners.: gets clothes & gets dressed without help, except for help tying shoes Toileting - going to the 'toilet room' for urine/bowel elimination & cleaning self/arranging clothes: goes to toilet room, cleans self, arranges clothes without help Transfer: moves in & out of bed and chair without help (may use support object) Continence: controls urination/bowel movements completely by self Feeding: feeds self without help Total Score: 0 Using telephone: independent Traveling: dependent Shopping: dependent Preparing meals: dependent Housework: dependent Taking medicine: independent Managing money: independent PHQ-9 Over the last 2 weeks, how often have you been bothered by any of the following problems? 1. Little interest or pleasure in doing things: not at all 2. Feeling down, depressed, or hopeless: not at all 3. Trouble falling or staying asleep, or sleeping too much: several days 4. Feeling tired or having little energy: not at all 5. Poor appetite or overeating: not at all 6. Feeling bad about yourself - or that you are a failure or have let yourself or your family down: not at all 7. Trouble concentrating on things, such as reading the newspaper or watching television: not at all 8. Moving or speaking so slowly that other people could have noticed. Or the opposite - being so fidgety or restless that you have been moving around a lot more than usual: not at all 9. Thoughts that you would be better off or of hurting yourself in some way: not at all Total score: 1 Depression Screening Interpretation: Negative Depression Screening Done: Yes 60231 - PHQ-9 Billing: Yes Source: Developed by Drs. Pardeep Saul, Rex Herbert and colleagues, with an educational mallory from [employer]. Fall Risk Assessment Fall Risk Assessment Fall risk assessment: No Falls in past year AUDIT C Alcohol Use Questionnaire (AUDIT-C) 1. How often do you have a drink containing alcohol?: Never Total Score: 0 Score Reviewed/Action Taken: No NICHOLE-7 AMB Questionnaire NICHOLE-7 Date NICHOLE - 7 assessed: 12/17/24 Feeling nervous, anxious, or on edge: 1 = Several days Not being able to stop or control worryin = Not at all Worrying too much about different things: 0 = Not at all Trouble relaxin = Not at all Being so restless that it is hard to sit still: 0 = Not at all Becoming easily annoyed or irritable: 0 = Not at all Feeling afraid as if something awful might happen: 0 = Not at all Total NICHOLE-7 score (0-4 normal; 5-9 mild; 10-14 moderate; 15-21 severe): 1 Source: Developed by Drs. Pardeep Saul, Rae Walker, Rex Schuster and colleagues, with an educational mallory from [employer]. NICHOLE-7 Assessment Billing NICHOLE-7 Assessment Tool: NICHOLE-7 Assessment 45072 Thrive Questionnaire Date Thrive assessed: 09/04/24 Review of Systems Const All systems reviewed & are unremarkable except as noted in HPI and below Card Denies chest pain at rest, Denies chest pain with activity, Denies edema, Denies irregular heart rhythm, Denies claudication, Denies dyspnea, Denies dyspnea on exertion, Denies orthopnea, Denies paroxysmal nocturnal dyspnea and Denies slow heart rate Resp Denies cough, Denies dyspnea and Denies dyspnea on exertion GI Denies abdominal pain, Denies change in bowel habits, Denies excessive flatus, Denies nausea and Denies vomiting Denies urinary incontinence, Denies urinary hesitancy and Denies urinary urgency Musc Reports back pain, Reports numbness, Reports radiating pain into limb and Reports tingling Neuro Reports numbness and Reports tingling Physical Exam Vital Signs: Last Vital Signs BP 120/64 12/17/24 09:10 BMI result Body Mass Index 28.3 Resp Effort & Inspection: normal respiratory effort Auscultation: clear to auscultation bilaterally Cardio Jugular venous distension: no JVD Rate: regular rate Rhythm: regular rhythm Heart sounds: S1 normal heart sound present and S2 normal heart sound present Neuro Romberg Test: Negative Extrem General: Yes full ROM Results AMB Hemoglobin A1c AMB Hemoglobin A1c 7.5 % Last Edit by RHONDA Lucio on 12/17/24 09:30 Results Reviewed Results Reviewed: Laboratory Last Values Hgb A1c (Clinic) 7.5 % (4.0-6.0) H 12/17/24 09:24 Assessment & Plan Assessment & Plan (1) Encounter for Medicare annual wellness exam: Code(s): Z00.00 - Encounter for general adult medical examination without abnormal findings (2) DM2 (diabetes mellitus, type 2): Code(s): E11.9 - Type 2 diabetes mellitus without complications Qualifiers: Diabetes mellitus detention insulin use: without terminal gauger use Diabetes mellitus complication status: without complication Qualified Code(s): E11.9 - Type 2 diabetes mellitus without complications (3) Right sided sciatica: Code(s): M54.31 - Sciatica, right side Plan Continue Trulicity and metformin. A1c goal is equal or less than 7%. Start Jardiance. DEXA scan ordered. Blood pressure goal is equal or less than 130/80. LDL goal less than 70. Hospital bed ordered. Referred to rheumatology due to right sciatica. Refill tramadol. Orders: Orders AMB Hemoglobin A1c Today E11.9 - Type 2 diabetes mellitus without complications Microalbumin, Random (w Creat) 4 Months R80.9 - Proteinuria, unspecified XR DEXA axial skeleton Today Z78.0 - Asymptomatic menopausal state Lipid Panel 4 Months E78.5 - Hyperlipidemia, unspecified Comprehensive [facility]. Panel Fast 4 Months E11.9 - Type 2 diabetes mellitus without complications Referrals Rheumatology Referral M54.31 - Sciatica, right side Medications: New dulaglutide (Trulicity) 3 mg (0.5 mL) subcut QWEEK 6.5 mL 0RF 90 days empagliflozin (Jardiance) 10 mg PO DAILY 90 tabs 0RF 90 days Changed From lancets As directed to test blood sugar three times a day To lancets As directed to test blood sugar once a day Refilled tramadol 50 mg PO Q8H PRN 90 tabs 0RF pain 30 days blood sugar diagnostic (FreeStyle Lite Strips) As directed three times a day 100 ea 11RF E11.9 - Type 2 diabetes mellitus without complications Discontinued dulaglutide (Trulicity) Discontinued Reason: Patient Completed Course 3 mg (0.5 mL) subcut QWEEK 90 days 6.5 mL 1RF E11.9 - Type 2 diabetes mellitus without complications Quality Reporting (2019) Fall Risk Screening ([facility] 139) Fall risk assessment: No Falls in past year Depression/Bipolar (159/160/161/177) PHQ-9: Total score: 1 Coding Level of Care Code Medicare First (G0438) Est Pt Level 3 (08810) Diagnoses Encounter for Medicare annual wellness exam Z00.00 Type 2 diabetes mellitus without complication, without long-term current use of insulin E11.9 Diabetes mellitus terminal gauger insulin use: without detention use Diabetes mellitus complication status: without complication Right sided sciatica M54.31 Additional Codes PHQ-9 - 39637 - PHQ-9 Billing: Yes ([id number]) NICHOLE-7 Assessment Billing - NICHOLE-7 Assessment Tool: NICHOLE-7 Assessment 25544 ([id number]) Time Spent (min) 36
[2024-12-17 09:10] VITALS: BP 120/64; BMI 28.3
--- OUTSIDE RECORDS SUMMARY | 2024-12-17 09:16 | XMS_ITS | Clinical Summary ---
Author Organization [facility] Facility Address [address] [place] [address] Care Team Providers Care Director Of Business Continuity Name Role Phone Anne Marie Nolan MD Primary Care Provider [phone] Allergies No known active allergies Medications Aspirin [...] Visual Foot Exam 07/12/2020 Influenza Vaccine (#1) 2025 Pneumococcal Vaccine: Peds ( 0 to [...] EDT) Hemoglobin A1C 6.7 % [facility] Comment: Hemoglobin A1C Reference Range Adults: 4.8 - 6.0 % Non diabetic: < 6.0 % Goal: < 7.0 % Additional Action Suggested: > 8.0 % Note: Hemoglobin A1c results are invalid for patients with abnormal amounts of HbF. Blood transfusions may impact the HbA1c concentration in the patient sample. Estimated Average Glucose 146 MG/DL [facility] Comment: eAG = Estimated average glucose which is %A1C expressed as average glucose, using the formula of the I0P-Xnklbru Average Glucose study (ADAG), Diabetes Care, Vol.31,#8, Jan. 2007 01/21/2020 12:1 5 PM EDT us Anne Marie Rangel NP LAB BLOOD ORDERABLES Final [facility] t [facility] from Last 3 Months or Most Recently Relevant to Health Maintenance Insurance [place] Care Teams Director Of Business Continuity Relationship Specialty Start Date End Date Anne Marie Nolan MD [address] [place] [address] PCP - General 06/21/20
== END 2024-12-17 10:01 | disposition home or self-care (01) ==
LOC: HO.HMCH 09:01
PROVIDERS: PCP Internal Medicine; Visit Provider Internal Medicine
DX: Z00.00 Encounter for general adult medical examination without abnormal findings (principal); E11.9 Type 2 diabetes mellitus without complications; M54.31 Sciatica, right side

== ENCOUNTER → 2024-12-17 09:00 | Outpatient (BNVA) | payer MEDICARE, MEDICAID, SELFPAY | PROVIDERS: PCP Internal Medicine; Visit Provider Internal Medicine | DX: Z00.01 Encounter for general adult medical examination with abnormal findings (principal); M54.31 Sciatica, right side; E11.9 Type 2 diabetes mellitus without complications; E78.5 Hyperlipidemia, unspecified; Z78.0 Asymptomatic menopausal state; R80.9 Proteinuria, unspecified | CPT/HCPCS: 83036; 96127; 99212 ==

== ENCOUNTER 2025-02-10 12:11 | Outpatient (REF) | payer MEDICARE, MEDICAID, SELFPAY ==
--- NOTE | ~2025-02-10 | US_ITS ---
CLINICAL HISTORY: N20.0 - Calculus of kidney US of kidneys Comparison: US - US RENAL BI - 07/25/24 09:59 EST Findings: Right kidney is normal in size and echogenicity, mild cortical thinning noted. 3 mm calculus in the interpolar region, no hydronephrosis or focal lesion. No abnormal vascular flow. Left kidney is normal in size, echogenicity and morphology, 10.9 cm in length. 2 mm calculus in the lower pole, 3 mm calculus in the midpole. Simple cortical cysts 1.5 cm in the midpole, 0.6 cm in the lower pole, small parapelvic cysts in the interpolar region. No hydronephrosis or abnormal vascular flow. Impression: 1. Nonobstructing bilateral nephrolithiasis. 2. Small left renal cysts. This document has been electronically signed by: Shadia Berg MD on 02/11/2025 09:58:28
--- OUTSIDE RECORDS SUMMARY | 2025-02-10 13:28 | XMS_ITS | Clinical Summary ---
Author Organization [facility] Facility Address [address] [address] Care Team Providers Care Player Services Representative Name Role Phone Anne Marie Nolan MD Primary Care Provider [phone] Allergies No known active allergies Medications Aspirin [...] patient sample. Estimated Average Glucose 146 MG/DL [facility] Comment: eAG = Estimated average glucose which is %A1C expressed as average glucose, using the formula of the U0W-Hkzmani Average Glucose study (ADAG), Diabetes Care, Vol.31,#8, Jan. 2007 01/21/2020 12:1 5 PM EDT us Anne Marie Rangel [employer] LAB BLOOD ORDERABLES Final Resul t [place] from Last 3 Months or Most Recently Relevant to Health Maintenance Insurance Medicare [place] Care Teams Player Services Representative Relationship Specialty Start Date End Date Anne Marie Nolan MD [address] [place] [address] PCP - General 06/21/20
== END 2025-02-10 12:12 | disposition home or self-care (01) ==
LOC: HO.US 12:11
PROVIDERS: PCP Internal Medicine; Visit Provider Nurse Practitioner Family
DX: N20.0 Calculus of kidney (principal)
CPT/HCPCS: 76775

== ENCOUNTER → 2025-02-10 12:13 | Outpatient (BNV) | payer MEDICARE, MEDICAID, SELFPAY | PROVIDERS: PCP Internal Medicine; Visit Provider Radiology Diagnostic Radiology | DX: N20.0 Calculus of kidney (principal); N28.1 Cyst of kidney, acquired | CPT/HCPCS: 76775 ==

== ENCOUNTER 2025-02-11 10:15 | Outpatient (AMB) | payer MEDICARE, MEDICAID, SELFPAY ==
--- NOTE | 2025-02-11 10:17 | A.OFFVIS_ITS ---
Intake Visit Reasons: 6m/US Intake Note: patient presents today for: 6mo/US urology medications: vit b-6 blood thinners: aspirin US done: 02/10/25 Horseback Excavator Required: Yes Horseback Excavator Services: Horseback Excavator Present Accompanied by: Daughter Allergies No Known Allergies (No Known Allergies*) Allergy (Verified 02/11/25 10:37) Medication List - Last Reconciled 02/11/25 by BETHEL Gotti acetaminophen (Tylenol) 650 mg (2 x 325 mg) PO Q4H PRN aspirin 81 mg PO DAILY atorvastatin 40 mg PO DAILY 90 days blood sugar diagnostic (FreeStyle Lite Strips) As directed three times a day blood-glucose meter (FreeStyle Lite Meter kit) As directed to test blood sugar three times a day chlorhexidine gluconate 0.12% 15 mL buccal DAILY cholecalciferol (vitamin D3) 25 mcg PO DAILY 90 days commode (bedside commode) As directed diclofenac sodium 1% (Voltaren Arthritis Pain) 2 grams topical QID dulaglutide (Trulicity) 3 mg (0.5 mL) subcut QWEEK 90 days empagliflozin (Jardiance) 10 mg PO DAILY 90 days [hospital bed As directed] lancets As directed to test blood sugar once a day lansoprazole 30 mg PO DAILY 90 days lidocaine 4% 1 patch topical DAILY PRN lidocaine 5% 1 patch topical DAILY lisinopril 20 mg PO DAILY 90 days meclizine 25 mg PO BID 30 days metformin 1,000 mg PO BID 90 days metoprolol tartrate 50 mg PO BID 90 days pyridoxine (vitamin B6) 50 mg (1/2 x 100 mg) PO DAILY 90 days [raised toilet seat As directed] tramadol 50 mg PO Q8H PRN 30 days walker As directed HPI Comments Details: Caroline is a pleasant 79-year-old Kittitian-speaking female of Dr. Awad who was accompanied by her daughter at today's office visit. She has a past medical history of chronic fatigue, renal cysts, type 2 diabetes, atrial arrhythmia, nephrolithiasis, iron deficiency anemia, hypertension, and hypercholesteremia. She presents to the office today for follow-up of her nephrolithiasis. In discussion with the patient and her daughter today she denies having had any bothersome urinary issues or concerns since her last office visit here. She denies urinary urgency, urinary frequency, incontinence, nocturia, hematuria, dysuria, foul smelling urine, changes to urinary stream, flank pain, fever, and or chills. She is happy with her current voiding parameters. Recent renal imaging results reviewed with the patient today 02/02 bilateral kidneys with nonobstructing nephrolithiasis. Right kidney with 3 mm, left kidney with 2 mm and 3 mm nonobstructing calculi. Small left renal cysts. When asked she does report compliance with vitamin B6 and adequate hydration. In office urinalysis results reviewed with the patient today. All questions were answered. She otherwise offers no other issues or concerns at this time. PREVIOUS OFFICE NOTE: Nephrolithiasis Longstanding Multiple prior procedures Concurrent diabetes Imaging - 03/30 renal ultrasound with 2 cm right renal stone, multiple small left renal stones, multiple bilateral cysts - 05/03 renal ultrasound bilateral 5 mm stones - 12/02 renal ultrasound bilateral stones Therapeutic plan - continue lemon water - surveillance imaging [facility] Medical History Chronic fatigue Renal cyst DM2 (diabetes mellitus, type 2) Atrial arrhythmia Renal stones Iron deficiency anemia Essential hypertension Hypovitaminosis D Pure hypercholesterolemia Controlled diabetes mellitus without complication, without long-term current use of insulin Surgical History History of bilateral cataract extraction History of extraction of renal calculus History of total abdominal hysterectomy and bilateral salpingo-oophorectomy Family History Father No problems noted. Mother Diabetes Hypertension Social History Household Members: None Housing: Apartment Alcohol intake: never Patient Tobacco Use Status: Never used Tobacco e-Cigarette/Vaping Use: Never Used Second Hand Smoke Exposure: No service: No Current occupational status: disabled Cognitive needs: No Hearing needs: No Vision needs: Yes Review of Systems Eyes Reports no additional complaints ENT Reports no additional complaints Card Reports as per HPI Resp Reports no additional complaints GI Reports no additional complaints Reports as per HPI Musc Reports no additional complaints Neuro Reports no additional complaints Psych Reports no additional complaints Endo Reports as per HPI Physical Exam Const General: cooperative, healthy appearing, comfortable, no acute distress, well developed, alert and awake Orientation/consciousness: patient oriented x3 Limitations: language barrier HEENT Head: Yes normal to inspection, Yes normocephalic and Yes atraumatic Ears: hearing grossly normal bilaterally Eyes General: appearance normal, both eyes and all related structures Neck Neck: Yes normal visual inspection and Yes trachea midline Chest Chest palpation & inspection: normal inspection of the chest Resp Effort & Inspection: normal respiratory effort and able to speak in complete sentences Cardio Rate: regular rate GI Inspection: Yes normal to inspection General: Yes no CVA tenderness Back/Spine/Pelvis Back: no CVA tenderness Skin General skin exam: no rashes or lesions noted Neuro General: patient oriented x3 Extrem General: Yes normal to inspection Psych Appearance: grossly normal and well kempt Mental Status: mental status grossly normal Speech and movement: Normal speech and movement present and Clear speech present Affect: normal affect Attitude: cooperative Thought process: Normal thought process present Thought content: Normal thought content present Insight: Fair insight present (Psych) Judgement: Fair judgement present (Psych) Results AMB Urinalysis, Automated UA Leukoctes 0 Nakia/uL Last Edit by CASSANDRA Hood on 02/11/25 10:29 UA Nitrite Negative Last Edit by CASSANDRA Hood on 02/11/25 10:29 UA Urobilinogen 3.5 mg/dL Last Edit by CASSANDRA Hood on 02/11/25 10:2 9 UA Protein 0 mg/dL Last Edit by CASSANDRA Hood on 02/11/25 10:29 UA pH 7.0 Last Edit by CASSANDRA Hood on 02/11/25 10:29 UA Blood 0 Jake/uL Last Edit by CASSANDRA Hood on 02/11/25 10:29 UA Specific [place] 1.010 Last Edit by CASSANDRA Hood on 02/11/25 10: 29 UA Ketone Negative Last Edit by CASSANDRA Hood on 02/11/25 10:29 UA Bilirubin 0 mg/dL Last Edit by CASSANDRA Hood on 02/11/25 10:29 UA Glucose 60 mg/dL Last Edit by CASSANDRA Hood on 02/11/25 10:29 Results Reviewed Results Reviewed: Laboratory Last Values Urine pH (Auto) 7.0 02/11/25 10:28 Specific [place] (Auto) 1.010 02/11/25 10:28 Urine Protein (Auto) 0 mg/dL 02/11/25 10:28 Glucose (UA)(Auto) 60 mg/dL 02/11/25 10:28 Urine Ketones (Auto) Negative 02/11/25 10:28 Urine Blood (Auto) 0 Jake/uL 02/11/25 10:28 Urine Nitrite (Auto) Negative 02/11/25 10:28 Urine Bilirubin (Auto) 0 mg/dL 02/11/25 10:28 Urine Urobilinogen (Auto) 3.5 mg/dL 02/11/25 10:28 Leukocyte Esterase (Auto) 0 Nakia/uL 02/11/25 10:28 Date of Service: 02/10/25 Procedure(s): US renal BI Findings: Right kidney is normal in size and echogenicity, mild cortical thinning noted. 3 mm calculus in the interpolar region, no hydronephrosis or focal lesion. No abnormal vascular flow. Left kidney is normal in size, echogenicity and morphology, 10.9 cm in length. 2 mm calculus in the lower pole, 3 mm calculus in the midpole. Simple cortical cysts 1.5 cm in the midpole, 0.6 cm in the lower pole, small parapelvic cysts in the interpolar region. No hydronephrosis or abnormal vascular flow. Impression: 1. Nonobstructing bilateral nephrolithiasis. 2. Small left renal cysts. Assessment & Plan Assessment & Plan (1) Renal cyst: Code(s): N28.1 - Cyst of kidney, acquired Category: Medical (2) Bilateral nephrolithiasis: Code(s): N20.0 - Calculus of kidney Category: Medical Plan In office urinalysis results reviewed with the patient today; as noted above. Recent renal imaging results reviewed with the patient today; as noted above. Patient currently denies any bothersome urinary issues or concerns. She reports be happy with current voiding parameters. Continue vitamin B6, increased hydration, and 1 oz of lemon juice to water daily. We did discuss metabolic workup to include Litholink and labs. Will obtain renal ultrasound in 6 months. Follow-up in 6 months with imaging to be completed prior; or sooner with any issues, concerns, and or questions. Orders: Orders AMB Urinalysis Automated Today Z13.9 - Encounter for screening, unspecified US renal BI 6 Months N20.0 - Calculus of kidney Medications: Refilled pyridoxine (vitamin B6) 50 mg (1/2 x 100 mg) PO DAILY 45 tabs 2RF 90 days N13.2 - Hydronephrosis with renal and ureteral calculous obstruction Patient Instructions: The patient had an opportunity to ask questions regarding the treatment plan. All questions were answered. Physical exam, labs, and imaging were discussed and reviewed in detail. As well as risks, benefits, and discussion of treatment choices. No major barriers to understanding were identified. The patient expressed understanding and agreement with the above treatment plan. The patient was made aware they should contact our office by phone for worsening of their current condition, the appearance of new symptoms, or with any questions or concerns. Compliance is encouraged with any medications and follow up testing that is ordered. It is a privilege to be allowed the opportunity to participate in? your urological care.? Again, if you have any questions or concerns If you have any questions or concerns please do not hesitate to contact me. The office is [phone]. This note is constructed using voice recognition software. While every effort has been made to ensure accuracy multimedia manager errors may have been included. Yours sincerely, BETHEL Gotti Coding Level of Care Code Est Pt Level 3 (45520) Complex EM visit Add On G2211 Diagnoses Renal cyst N28.1 Bilateral nephrolithiasis N20.0
--- OUTSIDE RECORDS SUMMARY | 2025-02-11 11:47 | XMS_ITS | Clinical Summary ---
Author Organization [facility] Facility Address [address] [address] Care Team Providers Care Ehs Specialist Name Role Phone Anne Marie Nolan MD Primary Care Provider [phone] Allergies No known active allergies Medications Aspirin [...] patient sample. Estimated Average Glucose 146 MG/DL [facility] Comment: eAG = Estimated average glucose which is %A1C expressed as average glucose, using the formula of the [id number] Average Glucose study (ADAG), Diabetes Care, Vol.31,#8, Jan. 2007 01/21/2020 12:1 5 PM EDT us Anne Marie Rangel EMBEDDED LINUX DEVELOPER LAB BLOOD ORDERABLES Final Resul t [place] from Last 3 Months or Most Recently Relevant to Health Maintenance Insurance Medicare Medicaid [place] Care Teams Ehs Specialist Relationship Specialty Start Date End Date Anne Marie Nolan MD [address] [place] [address] PCP - General 06/21/20
== END 2025-02-11 10:40 | disposition home or self-care (01) ==
LOC: HO.HUSH 10:16
PROVIDERS: PCP Internal Medicine; Visit Provider Nurse Practitioner Family
DX: N28.1 Cyst of kidney, acquired (principal); N20.0 Calculus of kidney; Z13.9 Encounter for screening, unspecified
CPT/HCPCS: 99213; G2211

== ENCOUNTER → 2025-02-11 10:15 | Outpatient (BNVA) | payer MEDICARE, MEDICAID, SELFPAY | PROVIDERS: PCP Internal Medicine; Visit Provider Nurse Practitioner Family | DX: N20.0 Calculus of kidney (principal); N28.1 Cyst of kidney, acquired; Z13.9 Encounter for screening, unspecified | CPT/HCPCS: 81003; 99212 ==

== ENCOUNTER 2025-04-15 09:09 | Outpatient (AMB) | payer MEDICARE, MEDICAID, SELFPAY ==
--- NOTE | 2025-04-15 09:45 | A.OFFVIS_ITS ---
Vital Signs 04/15/25 09:47 Height 5 ft 2 in Weight 152 lb 1.903 oz BMI 27.8 BP 113/59 L Blood Pressure Location Lt brachial Position Sitting Pulse 80 Intake Visit Reasons: abdominal pain Intake Note: Caroline presents in the office as a new patient for abdominal pains. CC: states that she only has constipation but denies pains in the stomach. She state that she gets nausea whenever she eats. Environmental Lawyer Required: Yes Environmental Lawyer Name: [id number] Federico Allergies No Known Allergies (No Known Allergies*) Allergy (Verified 04/15/25 09:48) HPI Comments Details: 79 y.o F with PMH of T2DM, HTN, who is here for constipation and nausea. Reports sx onset almost 5 years ago that everytime she sits down for a meal she feels nauseous. Also notes that belching is foul smelling. Has been on trulicity x 3 years. Constipation has also been ongoing for a year. Describes it as one formed BM per week sometimes has to strain. Reports minimal intake of water, drinks may be 2 cups of water. Not taking any laxatives. Has been seen by GI in the past at [facility]. Last colo was before covid. [facility] Medical History (Updated 04/15/25 @ 13:25 by Delia Sadler MD) Chronic fatigue Renal cyst DM2 (diabetes mellitus, type 2) Atrial arrhythmia Renal stones Iron deficiency anemia Essential hypertension Hypovitaminosis D Pure hypercholesterolemia Controlled diabetes mellitus without complication, without long-term current use of insulin Surgical History (Updated 04/15/25 @ 09:50 by RHONDA Wood) Hx of colonoscopy History of bilateral cataract extraction History of extraction of renal calculus History of total abdominal hysterectomy and bilateral salpingo-oophorectomy Family History Father No problems noted. Mother Diabetes Hypertension Social History Household Members: None Housing: Apartment Alcohol intake: never Patient Tobacco Use Status: Never used Tobacco e-Cigarette/Vaping Use: Never Used Second Hand Smoke Exposure: No service: No Current occupational status: disabled Cognitive needs: No Hearing needs: No Vision needs: Yes Review of Systems Const All systems reviewed & are unremarkable except as noted in HPI and below Physical Exam Exam Exam: No apparent distress Nonicteric Abdomen soft, nondistended Alert and oriented x3, normal gait Vital Signs: Last Vital Signs Pulse 80 04/15/25 09:47 BP 113/59 L 04/15/25 09:47 BMI result Body Mass Index 27.8 Assessment & Plan Assessment & Plan (1) Chronic idiopathic constipation: Code(s): K59.04 - Chronic idiopathic constipation Category: Medical (2) Nausea: Code(s): R11.0 - Nausea Category: Medical (3) Personal history of colonic polyps: Code(s): Z86.010 - Personal history of colon polyps Plan 1. Constipation Reviewed that likely secondary to suboptimal hydration and fiber intake. Would also recommend adding miralax daily or every other day. If minimal response to above measures, can add secretagogue therapy 2. Nausea Likely 2/2 a combinaton of side effect of GLP 1 vs delayed emptying from longstanding diabetes. Reviewed measures such as eating small frequent meals. Increase protein content in diet to make up calorie deficit, can utilize protein shakes 3. Hx of polyps Pt unsure of recall interval. Will obtain copy of records from [facility]. Release signed today. Follow up 3 months Medications: New polyethylene glycol 3350 (Miralax) Hold for loose stools 17 grams PO DAILY 238 grams 1RF Discontinued aspirin Discontinued Reason: Patient no longer taking 81 mg PO DAILY 90 tabs 3RF Patient Instructions: - pls increase water intake - at least 8-12 cups of water - take miralax daily or every other day - increase protein content in diet - follow up 3 months Coding Level of Care Code New Pt Level 4 (06817) Diagnoses Chronic idiopathic constipation K59.04 Nausea R11.0 Personal history of colonic polyps Z86.010
[2025-04-15 09:47] VITALS: BP 113/59; PULSE 80; BMI 27.8
--- OUTSIDE RECORDS SUMMARY | 2025-04-15 09:50 | XMS_ITS | Clinical Summary ---
Author Organization [facility] Facility Address [address] [address] Care Team Providers Care Linux System Engineer Name Role Phone Anne Marie Nolan MD Primary Care Provider [phone] Allergies No known active allergies Medications Aspirin [...] patient sample. Estimated Average Glucose 146 MG/DL [facility] Comment: eAG = Estimated average glucose which is %A1C expressed as average glucose, using the formula of the [id number] Average Glucose study (ADAG), Diabetes Care, Vol.31,#8, Jan. 2007 01/21/2020 12:1 5 PM EDT us Anne Marie Rangel SCOURER LAB BLOOD ORDERABLES Final Resul t [place] from Last 3 Months or Most Recently Relevant to Health Maintenance Insurance Medicare Medicaid [place] Care Teams Linux System Engineer Relationship Specialty Start Date End Date Anne Marie Nolan MD [address] [place] [address] PCP - General 06/21/20
== END 2025-04-15 10:19 | disposition home or self-care (01) ==
PROVIDERS: PCP Internal Medicine; Visit Provider Internal Medicine
DX: K59.04 Chronic idiopathic constipation (principal); R11.0 Nausea; Z86.0100 Personal history of colon polyps, unspecified
CPT/HCPCS: 99204

== ENCOUNTER → 2025-04-15 09:09 | Outpatient (BNVA) | payer MEDICARE, MEDICAID, SELFPAY | PROVIDERS: PCP Internal Medicine; Visit Provider Internal Medicine | DX: K59.04 Chronic idiopathic constipation (principal); R11.0 Nausea; Z86.0109 Personal history of other colon polyps | CPT/HCPCS: 99202 ==

== ENCOUNTER 2025-04-27 10:33 | Outpatient (REF) | payer MEDICARE, MEDICAID, SELFPAY ==
--- NOTE | ~2025-04-27 | MM_ITS ---
EXAMINATION: DXA BONE DENSITY AXIAL HISTORY: Z78.0 - Asymptomatic menopausal state TECHNIQUE: Curvo Dual energy absorptiometry (DEXA) of the lumbar spine, total left hip, and femoral neck was performed. COMPARISON: None FINDINGS: The bone mineral density of the lumbar spine is 1.11 g/cm2, corresponding to a T-score of -0.6, and a Z-score of 1.1. This is indicative of normal bone mineral density. The bone mineral density of the left total hip is 0.887 g/cm2, corresponding to a T-score of -1.0, and a Z-score of 1.0. This is indicative of normal bone mineral density. The bone mineral density of the left femoral neck is 0.685 g/cm2, corresponding to a T-score of -2.5, and a Z-score of -0.5. This is indicative of osteoporosis. MM/XR DEXA axial skeleton IMPRESSION: Based on bone mineral density, and according to World Health Organization (WHO) criteria, the diagnosis is consistent with osteoporosis based on lowest T score of -2.5 in the left femoral neck.. Treatment Recommendations: NOF guidelines recommend consideration for treatment in postmenopausal women and men age 50 and older presenting with the following: -A hip or vertebral (clinical or morphometric) fracture. -T-score less than or equal to -2.5 at the femoral neck or spine after appropriate evaluation to exclude secondary causes. -Low bone mass at the hip or spine and a 10-year fracture probability by FRAX of greater than or equal to 3% for hip fracture or greater than or equal to 20% for major osteoporotic fracture based on the [place] adapted WHO algorithm. Other Recommendations: All treatment decisions require clinical judgment and consideration of individual patient factors, including patient preferences, comorbidities, previous drug use, risk factors not captured in the FRAX model (e.g. frailty, falls, vitamin D deficiency, increased bone turnover, interval significant decline in bone density) and possible under or overestimation of fracture risk by FRAX. Additional medical evaluation for secondary cause of low bone mineral density may be appropriate. FUTURE SCAN RECOMMENDATION: People with diagnosed cases of osteoporosis or at high risk for fracture should have regular bone mineral density tests. For patients eligible for Medicare, routine testing is allowed once every 2 years. The testing frequency can be increased to one year for patients who have rapidly progressing disease, those who are receiving or discontinuing medical therapy to restore bone mass, or have additional risk factors. Statistically, 68% of repeat scans fall within 1 SD (+/- 0.010 g/cm2 for AP spine L1-L4) and 1 SD (+/- 0.012 g/cm2 for femur total) FRAX is a trademark of the [employer] [place] [facility] Metabolic Bone Disease, a World Health Organization (WHO) Collaborating Center. Electronically signed by: Chasity Jorge MD 04/28/2025 08:02 AM RAEGAN
== END 2025-04-27 10:34 | disposition home or self-care (01) ==
LOC: HO.MAMMO 10:33
PROVIDERS: PCP Internal Medicine; Visit Provider Internal Medicine
DX: Z13.820 Encounter for screening for osteoporosis (principal); Z78.0 Asymptomatic menopausal state
CPT/HCPCS: 77080

== ENCOUNTER → 2025-04-27 11:00 | Outpatient (BNV) | payer MEDICARE, MEDICAID, SELFPAY | PROVIDERS: PCP Internal Medicine; Visit Provider Radiology Diagnostic Radiology | DX: E28.39 Other primary ovarian failure (principal) | CPT/HCPCS: 77080 ==

== ENCOUNTER 2025-05-06 09:35 | Outpatient (AMB) | payer MEDICARE, MEDICAID, SELFPAY ==
[2025-05-06 09:37] VITALS: BP 140/80; PULSE 80; TEMP 36.7; O2SAT 98; BMI 28.8
--- NOTE | 2025-05-06 09:37 | A.OFFPC_ITS ---
Vital Signs 05/06/25 09:37 Height 5 ft 2 in Weight 157 lb 4 oz BMI 28.8 BP 140/80 H Blood Pressure Location Lt brachial Position Sitting Pulse 80 Pulse Source Pulse Oximeter Temp 98.1 F Temp Source Temporal Artery Scan Pulse Oximetry (%) 98 Oxygen Delivery Method Room Air Intake Visit Reasons: dm Intake Note: Patient here for a follow up DM Telephone Operators Supervisor Required: Yes Telephone Operators Supervisor Language: Hand Flatwork Finisher Name: Anne Marie Fermin MD Information Interpreted: non-clinical & clinical Accompanied by: Daughter Allergies No Known Allergies (No Known Allergies*) Allergy (Verified 05/06/25 09:38) Tobacco use date assessed: 09/04/24 Fall risk assessment: No Falls in past year Last assessed Fall Risk: 09/04/24 Dental Screening Dental Screen Date: 09/04/24 Did you have a dental visit in the last 12 months?: Yes Did you have a dental problem in the last 6 months where you did not have access to dental care?: No Was dental information given to patient?: Patient has dentist HPI HPI Comments History of Present Illness Details The patient is a 79 year old individual presenting for follow-up of chronic conditions. The patient has a history of diabetes, with a recent hemoglobin A1c of 6.6%, and is managed with metformin. The patient also has hyperlipidemia, which was controlled with an LDL of less than 70 mg/dL on last laboratory tests. The patient's hypertension is managed with lisinopril and metoprolol. Past medical history is significant for nephrolithiasis, which was identified on an ultrasound a few months ago. The patient takes vitamin B6 for kidney stone prevention. The patient also takes lansoprazole for a stomach condition and MiraLAX as needed for constipation. Last DEXA scan done this year shows osteoporosis and she would like to see endocrinology for further evaluation and management. [facility] Medical History (Updated 05/06/25 @ 10:02 by Anne Marie Fermin MD) Chronic fatigue Renal cyst DM2 (diabetes mellitus, type 2) Atrial arrhythmia Renal stones Iron deficiency anemia Essential hypertension Hypovitaminosis D Pure hypercholesterolemia Controlled diabetes mellitus without complication, without long-term current use of insulin Surgical History Hx of colonoscopy History of bilateral cataract extraction History of extraction of renal calculus History of total abdominal hysterectomy and bilateral salpingo-oophorectomy Family History Father No problems noted. Mother Diabetes Hypertension Social History Household Members: None Housing: Apartment Alcohol intake: never Patient Tobacco Use Status: Never used Tobacco e-Cigarette/Vaping Use: Never Used Second Hand Smoke Exposure: No service: No Current occupational status: disabled Cognitive needs: No Hearing needs: No Vision needs: Yes Questionnaire PHQ-9 Over the last 2 weeks, how often have you been bothered by any of the following problems? 1. Little interest or pleasure in doing things: not at all 2. Feeling down, depressed, or hopeless: not at all 3. Trouble falling or staying asleep, or sleeping too much: several days 4. Feeling tired or having little energy: not at all 5. Poor appetite or overeating: not at all 6. Feeling bad about yourself - or that you are a failure or have let yourself or your family down: not at all 7. Trouble concentrating on things, such as reading the newspaper or watching television: not at all 8. Moving or speaking so slowly that other people could have noticed. Or the opposite - being so fidgety or restless that you have been moving around a lot more than usual: not at all 9. Thoughts that you would be better off or of hurting yourself in some way: not at all Total score: 1 Depression Screening Interpretation: Negative Depression Screening Done: Yes 60705 - PHQ-9 Billing: Yes Source: Developed by Drs. Pardeep Saul, Rae Walker, Rex Schuster and colleagues, with an educational mallory from [employer]. Thrive Questionnaire Date Thrive assessed: 09/04/24 AUDIT C Alcohol Use Questionnaire (AUDIT-C) 1. How often do you have a drink containing alcohol?: Never Total Score: 0 Score Reviewed/Action Taken: No NICHOLE-7 AMB Questionnaire NICHOLE-7 Date NICHOLE - 7 assessed: 12/17/24 Feeling nervous, anxious, or on edge: 1 = Several days Not being able to stop or control worryin = Not at all Worrying too much about different things: 0 = Not at all Trouble relaxin = Not at all Being so restless that it is hard to sit still: 0 = Not at all Becoming easily annoyed or irritable: 0 = Not at all Feeling afraid as if something awful might happen: 0 = Not at all Total NICHOLE-7 score (0-4 normal; 5-9 mild; 10-14 moderate; 15-21 severe): 1 Source: Developed by Drs. Pardeep Saul, Rae Walker, Rex Schuster and colleagues, with an educational mallory from [employer]. NICHOLE-7 Assessment Billing NICHOLE-7 Assessment Tool: NICHOLE-7 Assessment 44595 Review of Systems Const All systems reviewed & are unremarkable except as noted in HPI and below Card Denies chest pain at rest, Denies chest pain with activity, Denies edema, Denies irregular heart rhythm, Denies claudication, Denies dyspnea, Denies dyspnea on exertion, Denies orthopnea, Denies paroxysmal nocturnal dyspnea and Denies slow heart rate Resp Denies cough, Denies dyspnea and Denies dyspnea on exertion GI Denies abdominal pain, Denies change in bowel habits, Denies excessive flatus, Denies nausea and Denies vomiting Physical exam (Primary Care) Vital Signs: Last Vital Signs Temp 98.1 F 05/06/25 09:37 Pulse 80 05/06/25 09:37 BP 140/80 H 05/06/25 09:37 Pulse Ox 98 05/06/25 09:37 Oxygen Delivery Method Room Air 05/06/25 09:37 BMI result Body Mass Index 28.8 Tobacco/Smoking Status: Tobacco use Status Tobacco use date assessed 09/04/24 05/06/25 09:40 Patient Tobacco Use Status Never used Tobacco 05/06/25 09:40 e-Cigarette/Vaping Use Never Used 05/06/25 09:40 PHQ-9: PHQ-9 Score PHQ-9: Total score 1 05/06/25 09:50 Depression Screening Interpretation: Negative Thrive Assessment: Date of Thrive Assessment Date Thrive assessed 09/04/24 05/06/25 09:40 Resp Effort & Inspection: normal respiratory effort Auscultation: clear to auscultation bilaterally Cardio Jugular venous distension: no JVD Rate: regular rate Rhythm: regular rhythm Heart sounds: S1 normal heart sound present and S2 normal heart sound present Extrem General: Yes full ROM Coding Level of Care Code Complex visit Add On G2211 Diagnoses Osteoporosis M81.0 Type 2 diabetes mellitus without complication, without long-term current use of insulin E11.9 Diabetes mellitus senior care insulin use: without intermodal 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 driver use Diabetes mellitus complication status: without complication Essential hypertension I10 Pure hypercholesterolemia E78.00 Bilateral nephrolithiasis N20.0 Additional Codes NICHOLE-7 Assessment Billing - NICHOLE-7 Assessment Tool: NICHOLE-7 Assessment 57124 ([id number]) PHQ-9 - 06566 - PHQ-9 Billing: Yes ([id number]) Time Spent (min) 22 Assessment & Plan Assessment & Plan (1) Osteoporosis: Code(s): M81.0 - Age-related osteoporosis without current pathological fracture Category: Medical (2) DM2 (diabetes mellitus, type 2): Code(s): E11.9 - Type 2 diabetes mellitus without complications Category: Medical Qualifiers: Diabetes mellitus intermodal 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 driver insulin use: without intermodal 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 driver use Diabetes mellitus complication status: without complication Qualified Code(s): E11.9 - Type 2 diabetes mellitus without complications (3) Essential hypertension: Code(s): I10 - Essential (primary) hypertension Category: Medical (4) Pure hypercholesterolemia: Code(s): E78.00 - Pure hypercholesterolemia, unspecified Category: Medical (5) Bilateral nephrolithiasis: Code(s): N20.0 - Calculus of kidney Category: Medical Plan Plan 1. Type 2 Diabetes Mellitus The patient's recent hemoglobin A1c was 6.6%. The patient will continue taking metformin for management. 2. Hyperlipidemia The patient's cholesterol was previously controlled, with an LDL below 70 mg/dL. A repeat lipid panel will be ordered for the next four months. 3. Hypertension The patient will continue the current regimen of lisinopril and metoprolol. 4. Nephrolithiasis The patient has a history of kidney stones found on a prior ultrasound. The patient will continue taking vitamin B6 for prevention. Orders: Orders Vitamin D 25-OH Total 4 Months E55.9 - Vitamin D deficiency, unspecified Comprehensive [place]. Panel Fast 4 Months E11.9 - Type 2 diabetes mellitus without complications Lipid Panel 4 Months E78.5 - Hyperlipidemia, unspecified Microalbumin, Random (w Creat) 4 Months R80.9 - Proteinuria, unspecified Referrals Endocrinology Referral M81.0 - Age-related osteoporosis without current pathological fracture
--- OUTSIDE RECORDS SUMMARY | 2025-05-06 10:49 | XMS_ITS | Clinical Summary ---
Author Organization [facility] Facility Address [address] [address] Care Team Providers Care Manager Of Planning Name Role Phone Anne Marie Nolan MD Primary Care Provider [phone] Allergies No known active allergies Medications Aspirin [...] patient sample. Estimated Average Glucose 146 MG/[facility] Comment: eAG = Estimated average glucose which is %A1C expressed as average glucose, using the formula of the [id number] Average Glucose study (ADAG), Diabetes Care, Vol.31,#8, Jan. 2007 01/21/2020 12:1 5 PM EDT us Anne Marie Rangel B[employer]K PLANT OPERATOR LAB BLOOD ORDERABLES Final Resul t [place] from Last 3 Months or Most Recently Relevant to Health Maintenance Insurance Medicare [place] Care Teams Manager Of Planning Relationship Specialty Start Date End Date Anne Marie Nolan MD [address] [place] [address] PCP - General 06/21/20
== END 2025-05-06 10:02 | disposition home or self-care (01) ==
LOC: HO.HMCH 09:35
PROVIDERS: PCP Internal Medicine; Visit Provider Internal Medicine
DX: M81.0 Age-related osteoporosis without current pathological fracture (principal); E11.9 Type 2 diabetes mellitus without complications; I10 Essential (primary) hypertension; E78.00 Pure hypercholesterolemia, unspecified; N20.0 Calculus of kidney

== ENCOUNTER → 2025-05-06 09:35 | Outpatient (BNVA) | payer MEDICARE, MEDICAID, SELFPAY | PROVIDERS: PCP Internal Medicine; Visit Provider Internal Medicine | DX: M81.0 Age-related osteoporosis without current pathological fracture (principal); E11.9 Type 2 diabetes mellitus without complications; I10 Essential (primary) hypertension; E78.00 Pure hypercholesterolemia, unspecified; N20.0 Calculus of kidney; Z13.31 Encounter for screening for depression | CPT/HCPCS: 96127; 99212 ==